=== PATIENT | female | born 1930 | race Caucasian/White ===

== ENCOUNTER 2017-01-24 10:28 | Inpatient (IN) | payer MEDICARE, MEDICAID ==
[2017-01-24] VITALS (8 sets, daily range): BP systolic 94–123; BP diastolic 58–85
[~2017-01-24] VITALS: Ht 162.6 cm; Wt 72.6 kg
[~2017-01-24 10:28] MED LIST: ACETAMINOPHEN325 M1 ORAL; ATORVASTATIN CA40 MG ORAL; CALCIUM 600 +1 EAC2 PO; CLOPIDOGREL75 MG ORAL; COLACE100 MG ORAL; DUONEB 0.5-3(2.53 ML HHN; FUROSEMIDE40 MG ORAL; LISINOPRIL10 MG ORAL; MULTIVITAMINS1 EAC8 ORAL; MYRBETRIQ50 MG PO; NORCO 5-325 TA1 EAC1 ORAL; NORCO 5-325 TA1 EACH ORAL; OXYTROL1 EACH TD; POTASSIUM CHLO20 ME1 ORAL; PREDNISONE50 MG ORAL; PROTONIX40 MG ORAL; VITAMIN D1000 UNI1 ORAL
[2017-01-24] MEDS ORDERED: TRAMADOL HCL50 MG ORAL (10:46)
[2017-01-24] MEDS ORDERED: Ipratropium 0.02% Inh Soln 2.5ml UD HHN ONE (11:00)
[2017-01-24] MEDS ORDERED: Albuterol ud Inhalation HHN ONE (11:00)
[2017-01-24] MEDS ORDERED: Solu-MEDROL 125mg Inj IVP ONE (11:00)
[2017-01-24 11:18] LABS: MEAN CORPUSCULAR HGB CONC 32.3 G/DL (32.0-36.0); MEAN CORPUSCULAR VOLUME 90 FL (80-99); MEAN PLATELET VOLUME 5.7 FL (6.5-10.1); PLATELET COUNT 236 K/UL (150-450); RED BLOOD COUNT 4.35 M/UL (4.20-5.40); RED CELL DISTRIBUTION WIDTH 15.2 % (11.6-14.8)
[2017-01-24 11:34] LABS: ALANINE AMINOTRANSFERASE 12 U/L (3-33); ALBUMIN/GLOBULIN RATIO 1.3 (1.0-2.7); ANION GAP 14 (5-15); ASPARTATE AMINO TRANSFERASE 14 U/L (5-40); CALCIUM 9.1 mg/dL (8.6-10.2); CARBON DIOXIDE 29 mEQ/L (20-30); CHLORIDE 94 mEQ/L (98-107); CREATININE 0.7 mg/dL (0.5-0.9); HEMOLYSIS 8; POTASSIUM 4.1 mEQ/L (3.4-4.9); SODIUM 137 mEQ/L (135-145); TOTAL PROTEIN 6.5 g/dL (6.6-8.7); TROPONIN I < 0.30 ng/mL (<=0.30)
[2017-01-24 11:45] LABS: CKMB 2.4 ng/mL (< 3.8)
[2017-01-24 11:51] LABS: BAND NEUTROPHILS % (MANUAL) 7 % (0-8); BASOPHILS % (MANUAL) 0 % (0-2); EOSINOPHILS % (MANUAL) 0 % (0-3); LYMPHOCYTES % (MANUAL) 9 % (20-45); NEUTROPHILS % (MANUAL) 75 % (45-75); PLATELET ESTIMATE ADEQUATE; PLATELET MORPHOLOGY NORMAL; TOTAL CELLS COUNTED 100
[2017-01-24 12:12] LABS: ABG BASE EXCESS 4.3; ABG PCO2 63.6 mmHg (35.0-45.0)
[2017-01-24 12:13] LABS: ABG ALLEN TEST POSITIVE
[2017-01-24] MEDS ORDERED: Morphine Sulfate 2mg/ml Inj IVP ONE (12:15)
[2017-01-24] MEDS ORDERED: Cefepime 1gm vial ONE (12:24)
[2017-01-24] MEDS ORDERED: Azithromycin Inj IV ONE (12:24)
[2017-01-24] MEDS ORDERED: Azithromycin 500 MG in NS 275 ML IV ONE (12:30)
[2017-01-24] MEDS ORDERED: Cefepime HCl 1 GM in NS 55 ML IV ONE (12:30)
--- NOTE | 2017-01-24 12:50 | Emergency Room Report ---
History of Present Illness General Chief Complaint: Dyspnea/Respdistress Source: Medical Record Present Illness HPI 87-year-old female presents to ED for evaluation of shortness of breath daughter is at bedside states that patient has had a cough for the last one week and notes increased shortness of breath. O2 sats in the 70s at [facility] on room air. Patient placed on oxygen. Patient has history of COPD. Patient is DO NOT RESUSCITATE. Daughter denies any fevers or chills. Denies any chest pain. No other aggravating or relieving factors. Denies any other associated symptoms Allergies: Coded Allergies: No Known Allergies (Unverified , 02/17/16) Patient History Past Medical History: HTN, CVA/TIA Past Surgical History: none, other - surgery Pertinent Family History: none Social History: Denies: alcohol use, drug use, smoking Now: No Immunizations: UTD Reviewed Nursing Documentation: PMH: Agreed, PSxH: Agreed Nursing Documentation-PMH Past Medical History: No History, Except For Hx Hypertension: Yes Hx Cancer: No Hx Gastrointestinal Problems: Yes - bowel repair Hx Cerebrovascular Accident: Yes Review of Systems All Other Systems: negative except mentioned in HPI Physical Exam Vital Signs Date Time Temp Pulse Resp B/P Pulse Ox O2 Delivery O2 Flow Rate FiO2 01/24/17 10:31 97.7 116 22 94/58 86 Simple Mask 10.0 01/24/17 10:42 100 Sp02 EP Interpretation: reviewed, normal General Appearance: mild distress, lethargic Head: normocephalic Eyes: bilateral eye PERRL, bilateral eye normal inspection ENT: normal ENT inspection Neck: full range of motion Respiratory: accessory muscle use, wheezing Cardiovascular #1: regular rate, rhythm, no edema Gastrointestinal: normal bowel sounds, non tender, soft, non-distended, no guarding, no rebound Rectal: deferred Genitourinary: no CVA tenderness Musculoskeletal: normal inspection Neurologic: other - lethargic Psychiatric: other - lethargic Skin: normal inspection Lymphatic: normal inspection Procedures Critical Care Time Critical Care Time i. I feel this is a highly complex case requiring extensive working including EKG/Rhythm strip, Xray/CT/US, Blood/urine lab work, repeat exams while in ED, and administration of strong opiates/narcotics for pain control, admission to hospital or close patient follow up. Total time: 30 min bedside evaluation and treatment excludes procedures (EKG). Reason for critical care: hypoxic, resp distress Possible complications: hypotension, hypertension, ND, shock, arrhythmias, metabolic acidosis, end organ damage, respiratory failure. Interventions: Labs, IV fluids, nebulization treatment, chest x-ray, ABG, BiPAP , antibiotics Course: Patient brought in for respiratory distress, hypoxic. ABG shows PCO2 > 60. She of COPD. Patient given breathing treatment but remains with labored breathing. Started on BiPAP. WBC 19,000, chest x-ray shows possible infiltrate. Antibiotics given. Consultations: nursing staff, EMS, family Performed by: Dr Barron Tolerated well condition = serious j. because of unstable vital signs this patient had a condition that could potentially threaten life or limb. I feel this is a critical patient who required my full attention while patient was considered critical. Total Critical Care Time excluding procedures was greater than 35 minutes Medical Decision Making Diagnostic Impression: Primary Impression: COPD exacerbation ER Course Hospital Course 87-year-old F presenting to ED with SOB, hypoxic. h/o COPD Differential diagnoses include: Pneumonia, CHF exacerbation, pneumothorax, fluid overload Clinical course Patient placed on stretcher. On monitoring specialist with stable vitals. After initial history and physical, I ordered nebulizer treatments. I ordered labs, IV fluids, EKG, chest x-ray, blood cultures, UA. Labs - noted leukocytosis, hemoglobin/hematocrit stable, electrolytes okay, lactate okay, troponins negative ABG PCO2 >60 CXR - cardiomegaly. effusion vs infiltrate EKG - no acute changes, NSR Patient continued to have labored breathing-started on BiPAP. Respiratory symptoms improved. Antibiotics given Case discussed with Dr. Saucedo and he agreed to the patient to his service for further care and support I feel this is a highly complex case requiring extensive working including EKG/ Rhythm strip, Xray/CT/US, Blood/urine lab work, repeat exams while in ED, and administration of strong opiates/narcotics for pain control, admission to hospital or close patient follow up. Diagnosis - COPD exacerbation Patient admitted to PAT in serious condition Labs Test 01/24/17 10:45 01/24/17 11:53 White Blood Count 19.0 K/UL (4.8-10.8) Red Blood Count 4.35 M/UL (4.20-5.40) Hemoglobin 12.6 G/DL (12.0-16.0) Hematocrit 39.1 % (37.0-47.0) Mean Corpuscular Volume 90 FL (80-99) Mean Corpuscular Hemoglobin 29.0 PG (27.0-31.0) Mean Corpuscular Hemoglobin Concent 32.3 G/DL (32.0-36.0) Red Cell Distribution Width 15.2 % (11.6-14.8) Platelet Count 236 K/UL (150-450) Mean Platelet Volume 5.7 FL (6.5-10.1) Neutrophils (%) (Auto) % (45.0-75.0) Lymphocytes (%) (Auto) % (20.0-45.0) Monocytes (%) (Auto) % (1.0-10.0) Eosinophils (%) (Auto) % (0.0-3.0) Basophils (%) (Auto) % (0.0-2.0) Differential Total Cells Counted 100 Neutrophils % (Manual) 75 % (45-75) Lymphocytes % (Manual) 9 % (20-45) Monocytes % (Manual) 9 % (1-10) Eosinophils % (Manual) 0 % (0-3) Basophils % (Manual) 0 % (0-2) Band Neutrophils 7 % (0-8) Platelet Estimate Adequate Platelet Morphology Normal Red Blood Cell Morphology Normal Sodium Level 137 mEQ/L (135-145) Potassium Level 4.1 mEQ/L (3.4-4.9) Chloride Level 94 mEQ/L (98-107) Carbon Dioxide Level 29 mEQ/L (20-30) Anion Gap 14 (5-15) Blood Urea Nitrogen 15 mg/dL (7-23) Creatinine 0.7 mg/dL (0.5-0.9) Estimat Glomerular Filtration Rate mL/min (>60) Glucose Level 181 mg/dL (74-106) Lactic Acid Level 1.30 mmol/L (0.66-2.22) Calcium Level 9.1 mg/dL (8.6-10.2) Total Bilirubin 0.6 mg/dL (0.0-1.2) Aspartate Amino Transf (AST/SGOT) 14 U/L (5-40) Alanine Aminotransferase (ALT/SGPT) 12 U/L (3-33) Alkaline Phosphatase 79 U/L (35-104) Total Creatine Kinase 46 U/L (26-140) Creatine Kinase MB 2.4 ng/mL (< 3.8) Creatine Kinase MB Relative Index 5.2 Troponin I < 0.30 ng/mL (<=0.30) Pro-B-Type Natriuretic Peptide 649 pg/mL (0-450) Total Protein 6.5 g/dL (6.6-8.7) Albumin 3.7 g/dL (3.5-5.2) Globulin 2.8 g/dL Albumin/Globulin Ratio 1.3 (1.0-2.7) Arterial Blood pH 7.320 (7.350-7.450) Arterial Blood Partial Pressure CO2 63.6 mmHg (35.0-45.0) Arterial Blood Partial Pressure O2 112.9 mmHg (75.0-100.0) Arterial Blood HCO3 32.1 mmol/L (22.0-26.0) Arterial Blood Oxygen Saturation 97.4 % (92.0-98.0) Arterial Blood Base Excess 4.3 Alec Test Positive EKG Diagnostic Results Rate: normal Rhythm: NSR ST Segments: no acute changes ASA given to the pt in ED: No Rhythm Strip Diag. Results EP Interpretation: yes Rhythm: NSR, no PVC's, no ectopy Chest X-Ray Diagnostic Results EP Interpretation: Yes Findings: no pneumothorax, no acute cardiopulmonary disease, other - cardiomegaly. b/l effusion. ? infiltrate Number of Views: 1 Last Vital Signs Date Time Temp Pulse Resp B/P Pulse Ox O2 Delivery O2 Flow Rate FiO2 01/24/17 12:08 40 01/24/17 12:05 115 20 90 Facial 01/24/17 11:47 123/60 2.0 01/24/17 11:04 97.7 Status: improved Disposition: ADMITTED INPATIENT Condition: Serious Referrals: NON PHYSICIAN (PCP) HARVEY BARRON M.D. Jan 24, 2017 12:50
--- NOTE | 2017-01-24 15:31 | Diagnostic Imaging Report ---
Indication: SOB Technique: One view of the chest Comparison: 10/08/2016 Findings: Bilateral mild diffuse interstitial disease appears similar to the prior study. There is suggestion of retrocardiac consolidation, this could be an artifact of overlying soft tissue opacity. The heart is enlarged. There is thoracic scoliotic deformity. There are degenerative changes of the right shoulder Impression: Bilateral diffuse mild interstitial disease, appearing similar to the previous exam of September 2016. This may represent chronic interstitial fibrotic or senescent changes, but there could also be a component of acute interstitial congestion. Correlate with clinical findings. Cardiomegaly
[2017-01-24] MEDS ORDERED: Norco 5mg/325mg tab ORAL PRN (16:45)
[2017-01-24] MEDS ORDERED: DuoNeb 0.5-3(2.5)mg/3ml neb HHN PRN (16:45)
--- NOTE | 2017-01-24 16:55 | History & Physical ---
History and Physical History & Physicial # [id number] PAWAN AZAR Jan 24, 2017 16:55
--- NOTE | 2017-01-24 17:00 | Consultation ---
History of Present Illness General Date patient seen: Jan 24, 2017 Chief Complaint: Dyspnea/Respdistress Referring physician: Dr. gallegos Reason for Consultation: dyspnea Present Illness HPI 87-year-old female with pmhx of COPD, CAD, CVA presented to ED for evaluation of shortness of breath daughter, cough for the last one week. [facility] sats [facility] 70s at [facility] on [facility]. . Patient is DO NOT RESUSCITATE. Daughter denies any fevers or chills. Patient was in respiratory failure and was put on BIPAP and being transferred to PAT. Allergies: Coded Allergies: No Known Allergies (Unverified , 02/17/16) Medication History Scheduled Atorvastatin Calcium* (Atorvastatin Calcium*), 40 MG ORAL BEDTIME, (Reported) Calcium Carbonate/Vitamin D3 (Calcium 600 + Vit D 200 Tablet), 1 EACH PO DAILY, (Reported) Cholecalciferol (Vitamin D3)* (Vitamin D*), 1,000 UNIT ORAL DAILY, (Reported) Clopidogrel* (Clopidogrel*), 75 MG ORAL DAILY, (Reported) Docusate Sodium* (Colace*), 100 MG ORAL THREE TIMES A DAY Furosemide* (Lasix*), 40 MG ORAL DAILY, (Reported) Lisinopril* (Lisinopril*), 10 MG ORAL DAILY, (Reported) Mirabegron (Myrbetriq), 50 MG PO DAILY, (Reported) Multivitamin With Minerals (Multivitamins With Minerals*), 1 TAB ORAL DAILY, ( Reported) Oxybutynin (Oxytrol), 1 EACH TD DAILY, (Reported) Pantoprazole* (Protonix*), 40 MG ORAL EVERY 12 HOURS Potassium Chloride* (K-Dur*), 20 MEQ ORAL DAILY, (Reported) Prednisone* (Prednisone*), 25 MG ORAL DAILY Scheduled PRN Acetaminophen* (Acetaminophen*), 650 MG ORAL Q4H PRN for T>100.5 Hydrocodone Bit/Acetaminophen 5-325* ([place] 5-325 Tablet*), 1 TAB ORAL Q8HR PRN for For Pain, (Reported) Ipratropium/Albuterol Sulfate (DuoNeb 0.5-3(2.5)mg/3ml), 3 ML HHN EVERY 4 HOURS PRN Tramadol Hcl* (Ultram*), 50 MG ORAL Q6H PRN for For Pain, (Reported) Patient History Healthcare decision maker N Resuscitation status Advanced Directive on File Past Medical/Surgical History Past Medical/Surgical History: (1) COPD (chronic obstructive pulmonary disease) (2) HTN (hypertension) (3) CAD (coronary artery disease) (4) Anemia Review of Systems All Other Systems: negative except mentioned in HPI Physical Exam General Appearance: WD/WN Lines, tubes and drains: peripheral, central line HEENT: normocephalic, atraumatic Neck: non-tender, normal alignment Respiratory/Chest: chest wall non-tender, lungs clear Cardiovascular/Chest: normal peripheral pulses Abdomen: normal bowel sounds, non tender Genitourinary/Rectal: normal genital exam Last 24 Hour Vital Signs Date Time Temp Pulse Resp B/P Pulse Ox O2 Delivery O2 Flow Rate FiO2 01/24/17 16:55 96 21 91 Facial 45 01/24/17 16:40 97.7 96 19 123/82 91 Bi-pap 45 01/24/17 15:41 97.7 94 17 113/85 94 Bi-pap 2.0 40 01/24/17 15:30 94 17 113/85 94 Bi-pap 40 01/24/17 14:36 104 20 88 Facial 45 01/24/17 14:30 102 18 115/76 87 Bi-pap 40 01/24/17 13:30 97.7 01/24/17 13:28 104 17 100/66 88 Bi-pap 40 01/24/17 13:10 100 18 88 Facial 40 01/24/17 12:30 108 19 111/74 89 Nasal Cannula 2.0 01/24/17 12:30 40 01/24/17 12:08 40 01/24/17 12:05 115 20 90 Facial 35 01/24/17 11:47 128 22 123/60 87 Nasal Cannula 2.0 01/24/17 11:22 122 22 90 Nasal Cannula 3.0 01/24/17 11:04 97.7 110 19 94/58 88 Non-Rebreather 15.0 01/24/17 11:04 110 19 15.0 01/24/17 10:52 110 19 88 Non-Rebreather 15.0 100 01/24/17 10:42 110 19 Non-Rebreather 15.0 100 01/24/17 10:31 97.7 116 22 94/58 86 Simple Mask 10.0 Laboratory Tests Test 01/24/17 10:45 01/24/17 11:53 White Blood Count 19.0 K/UL (4.8-10.8) H Red Blood Count 4.35 M/UL (4.20-5.40) Hemoglobin 12.6 G/DL (12.0-16.0) Hematocrit 39.1 % (37.0-47.0) Mean Corpuscular Volume 90 FL (80-99) Mean Corpuscular Hemoglobin 29.0 PG (27.0-31.0) Mean Corpuscular Hemoglobin Concent 32.3 G/DL (32.0-36.0) Red Cell Distribution Width 15.2 % (11.6-14.8) H Platelet Count 236 K/UL (150-450) Mean Platelet Volume 5.7 FL (6.5-10.1) L Neutrophils (%) (Auto) % (45.0-75.0) Lymphocytes (%) (Auto) % (20.0-45.0) Monocytes (%) (Auto) % (1.0-10.0) Eosinophils (%) (Auto) % (0.0-3.0) Basophils (%) (Auto) % (0.0-2.0) Differential Total Cells Counted 100 Neutrophils % (Manual) 75 % (45-75) Lymphocytes % (Manual) 9 % (20-45) L Monocytes % (Manual) 9 % (1-10) Eosinophils % (Manual) 0 % (0-3) Basophils % (Manual) 0 % (0-2) Band Neutrophils 7 % (0-8) Platelet Estimate Adequate Platelet Morphology Normal Red Blood Cell Morphology Normal Sodium Level 137 mEQ/L (135-145) Potassium Level 4.1 mEQ/L (3.4-4.9) Chloride Level 94 mEQ/L (98-107) L Carbon Dioxide Level 29 mEQ/L (20-30) Anion Gap 14 (5-15) Blood Urea Nitrogen 15 mg/dL (7-23) Creatinine 0.7 mg/dL (0.5-0.9) Estimat Glomerular Filtration Rate mL/min (>60) Glucose Level 181 mg/dL (74-106) H Lactic Acid Level 1.30 mmol/L (0.66-2.22) Calcium Level 9.1 mg/dL (8.6-10.2) Total Bilirubin 0.6 mg/dL (0.0-1.2) Aspartate Amino Transf (AST/SGOT) 14 U/L (5-40) Alanine Aminotransferase (ALT/SGPT) 12 U/L (3-33) Alkaline Phosphatase 79 U/L (35-104) Total Creatine Kinase 46 U/L (26-140) Creatine Kinase MB 2.4 ng/mL (< 3.8) Creatine Kinase MB Relative Index 5.2 Troponin I < 0.30 ng/mL (<=0.30) Pro-B-Type Natriuretic Peptide 649 pg/mL (0-450) H Total Protein 6.5 g/dL (6.6-8.7) L Albumin 3.7 g/dL (3.5-5.2) Globulin 2.8 g/dL Albumin/Globulin Ratio 1.3 (1.0-2.7) Arterial Blood pH 7.320 (7.350-7.450) Arterial Blood Partial Pressure CO2 63.6 mmHg (35.0-45.0) *H Arterial Blood Partial Pressure O2 112.9 mmHg (75.0-100.0) H Arterial Blood HCO3 32.1 mmol/L (22.0-26.0) H Arterial Blood Oxygen Saturation 97.4 % (92.0-98.0) Arterial Blood Base Excess 4.3 Alec Test Positive Height (Feet): 5 Height (Inches): 4.00 Weight (Pounds): 160 Medications Current Medications Medications (Trade) Dose Ordered Sig/Meera Route PRN Reason Start Time Stop Time Status Last Admin Dose Admin Acetaminophen (Tylenol) 650 mg Q4H PRN ORAL T>100.5 01/24/17 17:00 02/23/17 16:59 Acetaminophen/ Hydrocodone Bitart ([place] 5/325) 1 tab Q4H PRN ORAL PAIN 4-10 01/24/17 17:00 01/31/17 16:59 Albuterol/ Ipratropium (DuoNeb 0.5-3(2.5)mg/3ml) 3 ml Q4H PRN HHN Shortness of Breath 01/24/17 16:45 01/29/17 16:44 Atorvastatin Calcium (Lipitor) 40 mg BEDTIME ORAL 01/24/17 21:00 02/23/17 20:59 Ceftriaxone Sodium/Dextrose (Rocephin/D5W) 55 ml @ 110 mls/hr Q24H IVPB 01/24/17 18:00 01/31/17 17:59 Clopidogrel Bisulfate (Plavix) 75 mg DAILY ORAL 01/25/17 09:00 02/24/17 08:59 Docusate Sodium (Colace) 100 mg TID ORAL 01/24/17 18:00 02/23/17 17:59 Furosemide (Lasix) 40 mg DAILY IV 01/25/17 09:00 02/24/17 08:59 Lisinopril (Zestril) 10 mg DAILY ORAL 01/25/17 09:00 02/24/17 08:59 Methylprednisolone Sodium Succinate (Solu-MEDROL) 60 mg EVERY 8 HOURS IVP 01/24/17 22:00 02/23/17 21:59 Ondansetron HCl 4 mg 4 mg Q6H PRN IV Nausea & Vomiting 01/24/17 16:45 02/23/17 16:44 Pantoprazole (Protonix) 40 mg EVERY 12 HOURS ORAL 01/24/17 21:00 02/23/17 20:59 Polyethylene Glycol (Miralax) 17 gm BEDTIME ORAL 01/24/17 21:00 02/23/17 20:59 Assessment/Plan Problem List: (1) Respiratory failure ICD Codes: J96.90 - Respiratory failure, unspecified, unspecified whether with hypoxia or hypercapnia SNOMED: 639903583 (2) COPD exacerbation ICD Codes: J44.1 - Chronic obstructive pulmonary disease with (acute) exacerbation SNOMED: 022196891, 419973668 (3) Pneumonia ICD Codes: J18.9 - Pneumonia, unspecified organism SNOMED: 997854304 (4) HTN (hypertension) ICD Codes: I10 - Essential (primary) hypertension SNOMED: 94024176 (5) CAD (coronary artery disease) ICD Codes: I25.10 - Atherosclerotic heart disease of [place] coronary artery without angina pectoris SNOMED: 07206990 (6) Anemia ICD Codes: D64.9 - Anemia, unspecified SNOMED: 037127055 Assessment/Plan titrate bipap respiratory treatment IV antibiotics chest pt cxr in am sputum induction SUSIE ROCHA Jan 24, 2017 17:00
[2017-01-24] MEDS ORDERED: Docusate 250mg cap ORAL SCH (18:00)
[2017-01-24] MEDS: Docusate 100mg tablet ORAL SCH (19:27)
[2017-01-24] MEDS: cefTRIAXone 1 GM in D5W 55 ML IVPB SCH (19:27)
[2017-01-24] MEDS: Miralax 17gm pkt ORAL SCH (20:57)
[2017-01-24] MEDS: Norco 5mg/325mg tab ORAL PRN (20:57)
[2017-01-24] MEDS: Solu-MEDROL 125mg Inj IVP SCH (21:05)
--- NOTE | 2017-01-24 21:28 | History and Physical Report ---
DATE OF ADMISSION: 01/24/2017 HISTORY OF PRESENT ILLNESS: The patient is known to me from her previous 2 admissions. She was last discharged on 10/08/2016. She is 87 years old. She presented with shortness of breath with the daughter at her bedside. The patient had cough and shortness of breath for a week that the daughter attributes it to the refurnishing the floor of where she is staying and the patient has history of COPD. The patient is DNR. Past history of the patient is significant for few surgeries including hysterectomy, spinal fusion, bowel repair, and cholecystectomy, a hernia and gallbladder surgery, aneurysm of the abdomen, fracture of the hip and pelvis. PAST MEDICAL HISTORY: Past history of medical conditions include diverticulosis, chronic arthritis, and history of pneumonia, previous respiratory failure, gastrointestinal bleed, dehydration, and hypotension. MEDICATIONS: The patient was supposed to be on includes Tylenol, Finley, breathing treatment, Plavix, stool softeners, Lasix, lisinopril, Protonix, MiraLAX, and the patient was on tapering dose of prednisone when discharged in September. The patient also takes Restoril at night. On this admission, the patient was admitted with diagnosis of COPD exacerbation, however the patient has leukocytosis of 19,000. PHYSICAL EXAMINATION: GENERAL: On examination, the patient is comfortable on BiPAP. VITAL SIGNS: When seen in the emergency room, temperature 97.7. The patient was calm and had some sedatives. The patient is on BiPAP. Pulse rate 94, blood pressure 113/85, respiratory rate 17, but earlier it was as high as 26, FiO2 of 40%. The pulse oximetry was 94%. The daughter mentioned that her pulse oximetry prior to BiPAP was about 86. HEENT: Head is normocephalic. NECK: Neck is full. LUNGS: Decreased breath sound over the bases. HEART: Tachycardic. Mainly regular with occasional irregular beats. ABDOMEN: Obese, three different hernias and scars of the previous surgery present. EXTREMITIES: Lower extremities, two surgical scars over the knee present and the patient has trace edema. LABORATORY RESULTS: White blood cells 19,000, hemoglobin 12.6, potassium 4.1, glucose 181, peptic acid is 649. The urinalysis is not done. The chest x-ray reported to have cardiomegaly and effusion versus infiltrate. EKG no acute changes. Normal sinus rhythm. IMPRESSION: Hypoxic respiratory failure, most likely secondary to chronic obstructive pulmonary disease. The patient may have at the same time worsening congestive heart failure. Also, other conditions include chronic arthritis, multiple abdominal surgeries, and also as mentioned earlier previous history of the gastrointestinal bleed, and previous history of respiratory failure, requiring mechanical intubation. At this point, the patient will be managed on BiPAP by Dr. Miller and empirically, we will start on ceftriaxone as the patient was taking it in previous admissions while the urine cultures are pending. Protonix, intravenous Solu-Medrol, lisinopril, breathing treatment, pain medication, intravenous Lasix, stool softeners, and Plavix will be given. A 2D echocardiogram will be ordered and according to how the patient's condition evolves, we make the appropriate changes in our future management. Paresh Snow M.D. DR: KAYKAY JOB#: [id number] CC:
[2017-01-24 23:47] LABS: APPEARANCE,URINE CLEAR; KETONES,URINE NEGATIVE (NEGATIVE); LEUKOCYTE ESTERASE ,URINE 1+ (NEGATIVE); NITRITE,URINE POSITIVE (NEGATIVE); PH,URINE 6.5 (4.5-8.0); PROTEIN,URINE 2+ (NEGATIVE); UROBILINOGEN,URINE NORMAL MG/DL (0.0-1.0)
[2017-01-25 00:17] LABS: BACTERIA,URINE MODERATE /HPF; RBC,URINE 40-60 /HPF (0 - 2); SQUAMOUS EPITHELIAL CELL,UR FEW /LPF (NONE/OCC)
[2017-01-25] MEDS: Norco 5mg/325mg tab ORAL PRN ×5 (01:58→20:10)
[2017-01-25 04:00] VITALS: BP 120/85
[2017-01-25 05:11] LABS: MEAN CORPUSCULAR HEMOGLOBIN 28.9 PG (27.0-31.0); MEAN CORPUSCULAR HGB CONC 32.4 G/DL (32.0-36.0); MEAN CORPUSCULAR VOLUME 89 FL (80-99); PLATELET COUNT 206 K/UL (150-450); RED BLOOD COUNT 4.16 M/UL (4.20-5.40)
[2017-01-25] MEDS: Solu-MEDROL 125mg Inj IVP SCH (05:18)
[2017-01-25 05:32] LABS: HEMOGLOBIN A1C 5.9 % (< 6.0)
[2017-01-25 05:43] LABS: THYROID STIMULATING HORMONE 0.912 uIU/mL (0.300-4.500)
[2017-01-25 05:44] LABS: ALANINE AMINOTRANSFERASE 12 U/L (3-33); ALBUMIN/GLOBULIN RATIO 1.1 (1.0-2.7); ANION GAP 15 (5-15); ASPARTATE AMINO TRANSFERASE 12 U/L (5-40); CALCIUM 8.9 mg/dL (8.6-10.2); CARBON DIOXIDE 27 mEQ/L (20-30); CHLORIDE 96 mEQ/L (98-107); CHOLESTEROL 122 mg/dL (< 200); CHOLESTEROL/HDL RATIO 2.2 (3.3-4.4); CREATININE 0.7 mg/dL (0.5-0.9); CRP QUANT 14.2 mg/dL (< 0.5); HEMOLYSIS 4; LDL CHOLESTEROL (CALC.) 48 mg/dL (60-99); MAGNESIUM 1.6 mg/dL (1.7-2.5); PHOSPHORUS 3.4 mg/dL (2.5-4.8); POTASSIUM 4.3 mEQ/L (3.4-4.9); SODIUM 138 mEQ/L (135-145); TOTAL PROTEIN 6.2 g/dL (6.6-8.7); URIC ACID 8.5 mg/dL (3.0-7.5)
[2017-01-25] MEDS: Lisinopril 10mg tab ORAL SCH (08:37)
[2017-01-25] MEDS: Docusate 100mg tablet ORAL SCH ×3 (08:38→18:02)
[2017-01-25] MEDS ORDERED: Furosemide 40mg tab ORAL SCH (09:00)
[2017-01-25] MEDS ORDERED: Tubing IV Secondary IV ONE (09:51)
[2017-01-25 10:03] VITALS: BP 125/97
[2017-01-25 11:29] LABS: BAND NEUTROPHILS % (MANUAL) 2 % (0-8); LYMPHOCYTES % (MANUAL) 8 % (20-45); NEUTROPHILS % (MANUAL) 84 % (45-75); TOTAL CELLS COUNTED 100
[2017-01-25 11:30] LABS: ANISOCYTOSIS 1+
[2017-01-25 11:31] LABS: BASOPHILS % (MANUAL) 0 % (0-2); EOSINOPHILS % (MANUAL) 0 % (0-3); PLATELET ESTIMATE ADEQUATE; PLATELET MORPHOLOGY NORMAL
--- NOTE | 2017-01-25 11:58 | Diagnostic Imaging Report ---
Indication: DYSPNEA Technique: One view of the chest Comparison: 01/24/2017 Findings: There is increasing infiltrate at the right lung base. Left hemidiaphragm remains obscured. The heart is enlarged. Impression: Increasing right basilar infiltrate Persistent retrocardiac pleural and/or parenchymal disease Stable cardiomegaly
[2017-01-25 12:00] VITALS: BP 129/81
--- NOTE | 2017-01-25 12:10 | General Progress Note ---
Assessment/Plan Status: other - improved clinically Assessment/Plan Status: Hypoxic respiratory failure, most likely secondary to chronic obstructive pulmonary disease. The patient may have at the same time worsening congestive heart failure. Also, other conditions include chronic arthritis, multiple abdominal surgeries, and also as mentioned earlier previous history of the gastrointestinal bleed, and previous history of respiratory failure, requiring mechanical intubation. ? UTI Plan: Patient started with BIPAP, now seems improved empirically, on ceftriaxone as the patient was taking it in previous admissions while the urine cultures are pending. Protonix, intravenous Solu-Medrol ( with tapering aim) , lisinopril, breathing treatment, pain medication, intravenous Lasix, stool softeners, and Plavix will be given. A 2D echocardiogram is ordered Mag supplement Subjective ROS Limited/Unobtainable: No Constitutional: Reports: malaise, other - less SOB, weakness Allergies: Coded Allergies: No Known Allergies (Unverified , 02/17/16) Objective Last 24 Hour Vital Signs Date Time Temp Pulse Resp B/P Pulse Ox O2 Delivery O2 Flow Rate FiO2 01/25/17 11:26 3.0 01/25/17 10:03 98 18 125/97 94 01/25/17 08:42 3.0 01/25/17 08:37 131/85 01/25/17 08:00 40 01/25/17 08:00 80 01/25/17 07:17 97.7 01/25/17 07:03 93 20 97 3.0 01/25/17 05:24 81 19 97 Facial 45 01/25/17 04:00 40 01/25/17 04:00 88 01/25/17 04:00 97.7 95 24 120/85 88 Nasal Cannula 5.0 01/25/17 03:30 82 19 97 Facial 45 01/25/17 01:00 82 18 96 Facial 45 01/25/17 00:00 40 01/25/17 00:00 83 01/24/17 23:00 97 19 96 Facial 45 01/24/17 21:00 91 18 93 Facial 45 01/24/17 20:00 97.2 92 18 112/76 93 Bi-pap 45 01/24/17 19:16 92 19 93 Facial 45 01/24/17 18:00 40 01/24/17 16:55 96 21 91 Facial 45 01/24/17 16:40 97.7 96 19 123/82 91 Bi-pap 45 01/24/17 16:31 103 01/24/17 15:41 97.7 94 17 113/85 94 Bi-pap 2.0 40 01/24/17 15:30 94 17 113/85 94 Bi-pap 40 01/24/17 14:36 104 20 88 Facial 45 01/24/17 14:30 102 18 115/76 87 Bi-pap 40 01/24/17 13:30 97.7 01/24/17 13:28 104 17 100/66 88 Bi-pap 40 01/24/17 13:10 100 18 88 Facial 40 01/24/17 12:30 108 19 111/74 89 Nasal Cannula 2.0 01/24/17 12:30 40 01/24/17 12:08 40 01/24/17 12:05 115 20 90 Facial 35 Intake and Output 01/24/17 01/25/17 19:00 07:00 Intake Total 1530 ml 105 ml Output Total 200 ml Balance 1530 ml -95 ml Intake Oral 200 ml 50 ml IV Total 1330 ml 55 ml Output Urine Total 200 ml # Voids 1 3 Laboratory Tests 01/24/17 22:00: Urine Color Pale yellow, Urine Appearance Clear, Urine pH 6.5, Urine Specific [place] 1.015, Urine Protein 2+H, Urine Glucose (UA) Negative, Urine Ketones Negative, Urine Occult Blood 5+H, Urine Nitrite PositiveH, Urine Bilirubin Negative, Urine Urobilinogen Normal, Urine Leukocyte Esterase 1+H, Urine RBC 40- 60H, Urine WBC 5-10H, Urine Squamous Epithelial Cells Few, Urine Bacteria ModerateH, Urine Hyaline Casts 2-4H 01/25/17 03:25: White Blood Count 16.0H, Red Blood Count 4.16L, Hemoglobin 12.0, Hematocrit 37.1 , Mean Corpuscular Volume 89, Mean Corpuscular Hemoglobin 28.9, Mean Corpuscular Hemoglobin Concent 32.4, Red Cell Distribution Width 15.0H, Platelet Count 206, Mean Platelet Volume 6.0L, Neutrophils (%) (Auto) , Lymphocytes (%) (Auto) , Monocytes (%) (Auto) , Eosinophils (%) (Auto) , Basophils (%) (Auto) , Differential Total Cells Counted 100, Neutrophils % ( Manual) 84H, Lymphocytes % (Manual) 8L, Monocytes % (Manual) 6, Eosinophils % ( Manual) 0, Basophils % (Manual) 0, Band Neutrophils 2, Platelet Estimate Adequate, Platelet Morphology Normal, Anisocytosis 1+, Sodium Level 138, Potassium Level 4.3, Chloride Level 96L, Carbon Dioxide Level 27, Anion Gap 15, Blood Urea Nitrogen 19, Creatinine 0.7, Estimat Glomerular Filtration Rate , Glucose Level 179H, Hemoglobin A1c 5.9, Uric Acid 8.5H, Calcium Level 8.9, Phosphorus Level 3.4, Magnesium Level 1.6L, Total Bilirubin 0.3, Gamma Glutamyl Transpeptidase 22, Aspartate Amino Transf (AST/SGOT) 12, Alanine Aminotransferase (ALT/SGPT) 12, Alkaline Phosphatase 91, Total Creatine Kinase 25L, C-Reactive Protein, Quantitative 14.2H, Pro-B-Type Natriuretic Peptide 1043H, Total Protein 6.2L, Albumin 3.3L, Globulin 2.9, Albumin/Globulin Ratio 1.1, Triglycerides Level 89, Cholesterol Level 122, LDL Cholesterol 48L, HDL Cholesterol 56, Cholesterol/HDL Ratio 2.2L, Thyroid Stimulating Hormone (TSH) 0.912 Height (Feet): 5 Height (Inches): 4.00 Weight (Pounds): 160 General Appearance: mild distress Neck: limited range of motion Cardiovascular: tachycardia Respiratory/Chest: decreased breath sounds Abdomen: soft, distended, other - hernia Edema: no edema noted Arm (L), no edema noted Arm (R), no edema noted Leg (L), no edema noted Leg (R), no edema noted Pedal (L), no edema noted Pedal (R), no edema noted Generalized Objective other physical exam not changed PAWAN AZAR Jan 25, 2017 12:10
[2017-01-25] MEDS ORDERED: Solu-MEDROL 40mg Inj IVP SCH (14:00)
--- NOTE | 2017-01-25 14:17 | Pulmonology Progress Note ---
Assessment/Plan Problems: (1) Respiratory failure (2) COPD exacerbation (3) Pneumonia (4) HTN (hypertension) (5) CAD (coronary artery disease) (6) Anemia Assessment/Plan off bipap sputum induction taper steroids fast continue antibiotics doing much better cxr in am. Subjective ROS Limited/Unobtainable: No Interval Events: off bipap, tolerating well Constitutional: Reports: no symptoms HEENT: Repors: no symptoms Respiratory: Reports: no symptoms Allergies: Coded Allergies: No Known Allergies (Unverified , 02/17/16) Objective Last 24 Hour Vital Signs Date Time Temp Pulse Resp B/P Pulse Ox O2 Delivery O2 Flow Rate FiO2 01/25/17 13:13 98 20 95 3.0 01/25/17 12:03 97.7 01/25/17 12:00 40 01/25/17 12:00 97 01/25/17 11:26 3.0 01/25/17 10:03 98 18 125/97 94 01/25/17 08:42 3.0 01/25/17 08:37 131/85 01/25/17 08:00 40 01/25/17 08:00 80 01/25/17 07:03 93 20 97 3.0 01/25/17 05:24 81 19 97 Facial 45 01/25/17 04:00 40 01/25/17 04:00 88 01/25/17 04:00 97.7 95 24 120/85 88 Nasal Cannula 5.0 01/25/17 03:30 82 19 97 Facial 45 01/25/17 01:00 82 18 96 Facial 45 01/25/17 00:00 40 01/25/17 00:00 83 01/24/17 23:00 97 19 96 Facial 45 01/24/17 21:00 91 18 93 Facial 45 01/24/17 20:00 97.2 92 18 112/76 93 Bi-pap 45 01/24/17 19:16 92 19 93 Facial 45 01/24/17 18:00 40 01/24/17 16:55 96 21 91 Facial 45 01/24/17 16:40 97.7 96 19 123/82 91 Bi-pap 45 01/24/17 16:31 103 01/24/17 15:41 97.7 94 17 113/85 94 Bi-pap 2.0 40 01/24/17 15:30 94 17 113/85 94 Bi-pap 40 01/24/17 14:36 104 20 88 Facial 45 01/24/17 14:30 102 18 115/76 87 Bi-pap 40 Intake and Output 01/24/17 01/25/17 19:00 07:00 Intake Total 1530 ml 105 ml Output Total 200 ml Balance 1530 ml -95 ml Intake Oral 200 ml 50 ml IV Total 1330 ml 55 ml Output Urine Total 200 ml # Voids 1 3 General Appearance: WD/WN HEENT: normocephalic, atraumatic Respiratory/Chest: chest wall non-tender, respiratory distress, crackles/rales Cardiovascular: normal peripheral pulses, normal rate Abdomen: normal bowel sounds, soft, non tender Extremities: no cyanosis 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 Laboratory Tests 01/24/17 22:00: Urine Color Pale yellow, Urine Appearance Clear, Urine pH 6.5, Urine Specific [place] 1.015, Urine Protein 2+H, Urine Glucose (UA) Negative, Urine Ketones Negative, Urine Occult Blood 5+H, Urine Nitrite PositiveH, Urine Bilirubin Negative, Urine Urobilinogen Normal, Urine Leukocyte Esterase 1+H, Urine RBC 40- 60H, Urine WBC 5-10H, Urine Squamous Epithelial Cells Few, Urine Bacteria ModerateH, Urine Hyaline Casts 2-4H 01/25/17 03:25: White Blood Count 16.0H, Red Blood Count 4.16L, Hemoglobin 12.0, Hematocrit 37.1 , Mean Corpuscular Volume 89, Mean Corpuscular Hemoglobin 28.9, Mean Corpuscular Hemoglobin Concent 32.4, Red Cell Distribution Width 15.0H, Platelet Count 206, Mean Platelet Volume 6.0L, Neutrophils (%) (Auto) , Lymphocytes (%) (Auto) , Monocytes (%) (Auto) , Eosinophils (%) (Auto) , Basophils (%) (Auto) , Differential Total Cells Counted 100, Neutrophils % ( Manual) 84H, Lymphocytes % (Manual) 8L, Monocytes % (Manual) 6, Eosinophils % ( Manual) 0, Basophils % (Manual) 0, Band Neutrophils 2, Platelet Estimate Adequate, Platelet Morphology Normal, Anisocytosis 1+, Sodium Level 138, Potassium Level 4.3, Chloride Level 96L, Carbon Dioxide Level 27, Anion Gap 15, Blood Urea Nitrogen 19, Creatinine 0.7, Estimat Glomerular Filtration Rate , Glucose Level 179H, Hemoglobin A1c 5.9, Uric Acid 8.5H, Calcium Level 8.9, Phosphorus Level 3.4, Magnesium Level 1.6L, Total Bilirubin 0.3, Gamma Glutamyl Transpeptidase 22, Aspartate Amino Transf (AST/SGOT) 12, Alanine Aminotransferase (ALT/SGPT) 12, Alkaline Phosphatase 91, Total Creatine Kinase 25L, C-Reactive Protein, Quantitative 14.2H, Pro-B-Type Natriuretic Peptide 1043H, Total Protein 6.2L, Albumin 3.3L, Globulin 2.9, Albumin/Globulin Ratio 1.1, Triglycerides Level 89, Cholesterol Level 122, LDL Cholesterol 48L, HDL Cholesterol 56, Cholesterol/HDL Ratio 2.2L, Thyroid Stimulating Hormone (TSH) 0.912 Current Medications Medications (Trade) Dose Ordered Sig/Meera Route PRN Reason Start Time Stop Time Status Last Admin Dose Admin Acetaminophen (Tylenol) 650 mg Q4H PRN ORAL T>100.5 01/24/17 17:00 02/23/17 16:59 Acetaminophen/ Hydrocodone Bitart ([place] 5/325) 1 tab Q4H PRN ORAL PAIN 4-10 01/24/17 17:00 01/31/17 16:59 01/25/17 11:04 Albuterol/ Ipratropium (DuoNeb 0.5-3(2.5)mg/3ml) 3 ml Q4H PRN HHN Shortness of Breath 01/24/17 16:45 01/29/17 16:44 Atorvastatin Calcium (Lipitor) 40 mg BEDTIME ORAL 01/24/17 21:00 02/23/17 20:59 01/24/17 20:56 Ceftriaxone Sodium/Dextrose (Rocephin/D5W) 55 ml @ 110 mls/hr Q24H IVPB 01/24/17 18:00 01/31/17 17:59 01/24/17 19:27 Clopidogrel Bisulfate (Plavix) 75 mg DAILY ORAL 01/25/17 09:00 02/24/17 08:59 01/25/17 08:37 Docusate Sodium (Colace) 100 mg TID ORAL 01/24/17 18:00 02/23/17 17:59 01/25/17 13:16 Furosemide (Lasix) 40 mg DAILY IV 01/25/17 09:00 02/24/17 08:59 01/25/17 08:37 Lisinopril (Zestril) 10 mg DAILY ORAL 01/25/17 09:00 02/24/17 08:59 01/25/17 08:37 Magnesium Sulfate (Magnesium Sulfate 1gm/100ml) 100 ml @ 100 mls/hr Q1H IVPB 01/25/17 13:00 01/25/17 14:59 01/25/17 13:56 Methylprednisolone Sodium Succinate 40 mg 40 mg EVERY 8 HOURS IVP 01/25/17 14:00 02/24/17 13:59 01/25/17 13:16 Ondansetron HCl 4 mg 4 mg Q6H PRN IV Nausea & Vomiting 01/24/17 16:45 02/23/17 16:44 Pantoprazole (Protonix) 40 mg EVERY 12 HOURS ORAL 01/24/17 21:00 02/23/17 20:59 01/25/17 08:38 Polyethylene Glycol (Miralax) 17 gm BEDTIME ORAL 01/24/17 21:00 02/23/17 20:59 01/24/17 20:57 SUSIE ROCHA Jan 25, 2017 14:17
[2017-01-25 16:00] VITALS: BP 114/72
[2017-01-25] MEDS: cefTRIAXone 1 GM in D5W 55 ML IVPB SCH (18:02)
[2017-01-25 19:00] VITALS: BP 130/79
[2017-01-25] MEDS: Miralax 17gm pkt ORAL SCH (21:28)
[2017-01-26] VITALS: BP 130/86
[2017-01-26] MEDS: Norco 5mg/325mg tab ORAL PRN ×7 (00:04→20:36)
[2017-01-26] MEDS: Promethazine/Codeine 5ml UD ORAL PRN ×2 (01:03→09:20)
[2017-01-26 04:00] VITALS: BP 132/86
[2017-01-26 06:37] LABS: BASOPHILS % (AUTO) 0.4 % (0.0-2.0); EOSINOPHILS % (AUTO) 0.2 % (0.0-3.0); LYMPHOCYTES % (AUTO) 18.9 % (20.0-45.0); MEAN CORPUSCULAR HEMOGLOBIN 29.6 PG (27.0-31.0); MEAN CORPUSCULAR HGB CONC 33.1 G/DL (32.0-36.0); MEAN CORPUSCULAR VOLUME 89 FL (80-99); MEAN PLATELET VOLUME 6.3 FL (6.5-10.1); MONOCYTES % (AUTO) 8.5 % (1.0-10.0); PLATELET COUNT 238 K/UL (150-450); RED BLOOD COUNT 4.24 M/UL (4.20-5.40); RED CELL DISTRIBUTION WIDTH 15.1 % (11.6-14.8)
[2017-01-26 06:42] LABS: ALANINE AMINOTRANSFERASE 18 U/L (3-33); ALBUMIN/GLOBULIN RATIO 1.2 (1.0-2.7); ANION GAP 13 (5-15); ASPARTATE AMINO TRANSFERASE 19 U/L (5-40); CALCIUM 8.9 mg/dL (8.6-10.2); CARBON DIOXIDE 30 mEQ/L (20-30); CHLORIDE 96 mEQ/L (98-107); CREATININE 0.7 mg/dL (0.5-0.9); CRP QUANT 4.5 mg/dL (< 0.5); HEMOLYSIS 2; MAGNESIUM 2.2 mg/dL (1.7-2.5); PHOSPHORUS 2.8 mg/dL (2.5-4.8); POTASSIUM 4.2 mEQ/L (3.4-4.9); SODIUM 139 mEQ/L (135-145); TOTAL PROTEIN 6.3 g/dL (6.6-8.7); URIC ACID 7.9 mg/dL (3.0-7.5)
[2017-01-26 08:00] VITALS: BP 121/53
[2017-01-26] MEDS: Docusate 100mg tablet ORAL SCH ×4 (08:26→18:05)
[2017-01-26] MEDS: Lisinopril 10mg tab ORAL SCH (08:27)
[2017-01-26] MEDS ORDERED: Solu-MEDROL 40mg Inj IVP SCH (09:00)
--- NOTE | 2017-01-26 09:33 | General Progress Note ---
Assessment/Plan Status: stable Assessment/Plan Status: Hypoxic respiratory failure, most likely secondary to chronic obstructive pulmonary disease. The patient may have at the same time worsening congestive heart failure. Also, other conditions include chronic arthritis, multiple abdominal surgeries, and also as mentioned earlier previous history of the gastrointestinal bleed, and previous history of respiratory failure, requiring mechanical intubation. ? UTI Plan: Patient started with BIPAP, now seems improved Currently on O2 cannula empirically, on ceftriaxone as the patient was taking it in previous admissions while the urine cultures are pending. Protonix, intravenous Solu-Medrol ( with tapering aim) , lisinopril, breathing treatment, pain medication, intravenous Lasix, stool softeners, and Plavix will be given. A 2D echocardiogram is ordered Mag supplement to telemetry change Solumedrol to PO prednisone Subjective ROS Limited/Unobtainable: No Constitutional: Reports: malaise, other - feels better Allergies: Coded Allergies: No Known Allergies (Unverified , 02/17/16) Objective Last 24 Hour Vital Signs Date Time Temp Pulse Resp B/P Pulse Ox O2 Delivery O2 Flow Rate FiO2 01/26/17 08:27 132/86 01/26/17 07:53 99 Nasal Cannula 4.0 01/26/17 07:49 Nasal Cannula 4.0 01/26/17 07:46 108 18 Nasal Cannula 4.0 01/26/17 05:12 97.7 01/26/17 04:00 73 01/26/17 04:00 98.1 81 24 132/86 95 Nasal Cannula 5.0 01/26/17 00:00 71 01/26/17 00:00 97.7 85 24 130/86 94 Nasal Cannula 5.0 01/25/17 23:00 89 20 97 Nasal Cannula 4.0 36 01/25/17 22:55 84 18 97 Nasal Cannula 4.0 36 01/25/17 20:00 86 01/25/17 19:23 Nasal Cannula 3.0 32 01/25/17 19:23 96 Nasal Cannula 3.0 32 01/25/17 19:22 3.0 01/25/17 19:00 97.7 92 20 130/79 79 Nasal Cannula 3.0 01/25/17 17:08 3.0 01/25/17 16:55 4.0 01/25/17 16:00 90 01/25/17 16:00 97.3 89 20 114/72 94 Nasal Cannula 3.0 01/25/17 15:03 3.0 01/25/17 13:13 98 20 95 3.0 01/25/17 12:00 97.9 98 20 129/81 92 Nasal Cannula 3.4 01/25/17 12:00 40 01/25/17 12:00 97 01/25/17 11:26 3.0 01/25/17 10:03 98 18 125/97 94 Intake and Output 01/25/17 01/26/17 19:00 07:00 Intake Total 350 ml 120 ml Balance 350 ml 120 ml Intake Oral 350 ml 120 ml # Voids 8 Laboratory Tests 01/26/17 05:45: White Blood Count 15.0H, Red Blood Count 4.24, Hemoglobin 12.6, Hematocrit 37.9 , Mean Corpuscular Volume 89, Mean Corpuscular Hemoglobin 29.6, Mean Corpuscular Hemoglobin Concent 33.1, Red Cell Distribution Width 15.1H, Platelet Count 238, Mean Platelet Volume 6.3L, Neutrophils (%) (Auto) 72.0, Lymphocytes (%) (Auto) 18.9L, Monocytes (%) (Auto) 8.5, Eosinophils (%) (Auto) 0.2, Basophils (%) (Auto) 0.4, Sodium Level 139, Potassium Level 4.2, Chloride Level 96L, Carbon Dioxide Level 30, Anion Gap 13, Blood Urea Nitrogen 22, Creatinine 0.7, Estimat Glomerular Filtration Rate , Glucose Level 130H, Uric Acid 7.9H, Calcium Level 8.9, Phosphorus Level 2.8, Magnesium Level 2.2, Total Bilirubin 0.2, Aspartate Amino Transf (AST/SGOT) 19, Alanine Aminotransferase ( ALT/SGPT) 18, Alkaline Phosphatase 70, C-Reactive Protein, Quantitative 4.5H, Total Protein 6.3L, Albumin 3.5, Globulin 2.8, Albumin/Globulin Ratio 1.2 Height (Feet): 5 Height (Inches): 4.00 Weight (Pounds): 160 General Appearance: mild distress, other - more responsive Neck: stiff neck Cardiovascular: other - variable rates Respiratory/Chest: decreased breath sounds Abdomen: soft Objective other physical exam not changed PAWAN AZAR 18, 2017 09:33
[2017-01-26 12:00] VITALS: BP 138/96
--- NOTE | 2017-01-26 13:13 | Pulmonology Progress Note ---
Assessment/Plan Assessment/Plan ASSESSMENT acute hypoxemic hypercapnic respiratory failure requiring BiPAP - resolved hx of RF with intubation acute COPD exacerbation PNA HTN CAD anemia mild pulmonary HTN mild to moderate MR PLAN OF CARE PAT off BiPAP O2 HHN prn titrate to keep FiO2 above 92% steroids changed to oral last CXR with increasing R base infiltrate but leucocytosis trending down, clinically improving fup with CXR on Saturday abx, blood cx negative, urine cx with mixed urogenital contaminants , sputum cx if able antitussive prn empiric abx ECHO with EF 55-60% and RVSP of 48 c/w moderate pulmonary HTN, + mild to moderate MR continue Plavix, statin BP management with current regimen and optimize as needed GI prophylaxis PT/OT case discussed and evaluated by supervising physician Subjective Allergies: Coded Allergies: No Known Allergies (Unverified , 02/17/16) Subjective leukocytosis trending down off BiPAP on O2 via NC sat stable no signs of respiratory distress Objective Last 24 Hour Vital Signs Date Time Temp Pulse Resp B/P Pulse Ox O2 Delivery O2 Flow Rate FiO2 01/26/17 12:00 87 01/26/17 09:25 97.7 01/26/17 09:00 100 01/26/17 08:27 132/86 01/26/17 08:00 97.5 83 18 121/53 93 Nasal Cannula 4.0 01/26/17 07:53 99 Nasal Cannula 4.0 01/26/17 07:49 Nasal Cannula 4.0 01/26/17 07:46 108 18 Nasal Cannula 4.0 01/26/17 04:00 73 01/26/17 04:00 98.1 81 24 132/86 95 Nasal Cannula 5.0 01/26/17 00:00 71 01/26/17 00:00 97.7 85 24 130/86 94 Nasal Cannula 5.0 01/25/17 23:00 89 20 97 Nasal Cannula 4.0 36 01/25/17 22:55 84 18 97 Nasal Cannula 4.0 36 01/25/17 20:00 86 01/25/17 19:23 Nasal Cannula 3.0 32 01/25/17 19:23 96 Nasal Cannula 3.0 32 01/25/17 19:22 3.0 01/25/17 19:00 97.7 92 20 130/79 79 Nasal Cannula 3.0 01/25/17 17:08 3.0 01/25/17 16:55 4.0 01/25/17 16:00 90 01/25/17 16:00 97.3 89 20 114/72 94 Nasal Cannula 3.0 01/25/17 15:03 3.0 Intake and Output 01/25/17 01/26/17 19:00 07:00 Intake Total 350 ml 120 ml Balance 350 ml 120 ml Intake Oral 350 ml 120 ml # Voids 8 General Appearance: no acute distress, other - awake, responsive elderly female HEENT: normocephalic, atraumatic, anicteric, other - O2 via NC Respiratory/Chest: lungs clear - with moderate air exchange , no accessory muscle use Cardiovascular: normal rate, regular rhythm, no JVD Abdomen: normal bowel sounds, other - 3 abdominal hernias Extremities: other - +1 edema BLE Neurologic/Psychiatric: abnormal gait, alert, responsive Musculoskeletal: atrophy - BLE Microbiology Date/Time Source Procedure Growth Status 01/24/17 11:00 Blood Blood Culture - Preliminary NO GROWTH AFTER 48 HOURS Resulted 01/24/17 10:55 Blood Blood Culture - Preliminary NO GROWTH AFTER 48 HOURS Resulted 01/24/17 14:00 Nasal Nares MRSA Culture - Final NO METHICILLIN RESISTANT STAPH AUREUS... Complete 01/24/17 22:00 Indwelling Cath Urine Culture - Preliminary Mixed Urogenital Contaminants Resulted Laboratory Tests 01/26/17 05:45: White Blood Count 15.0H, Red Blood Count 4.24, Hemoglobin 12.6, Hematocrit 37.9 , Mean Corpuscular Volume 89, Mean Corpuscular Hemoglobin 29.6, Mean Corpuscular Hemoglobin Concent 33.1, Red Cell Distribution Width 15.1H, Platelet Count 238, Mean Platelet Volume 6.3L, Neutrophils (%) (Auto) 72.0, Lymphocytes (%) (Auto) 18.9L, Monocytes (%) (Auto) 8.5, Eosinophils (%) (Auto) 0.2, Basophils (%) (Auto) 0.4, Sodium Level 139, Potassium Level 4.2, Chloride Level 96L, Carbon Dioxide Level 30, Anion Gap 13, Blood Urea Nitrogen 22, Creatinine 0.7, Estimat Glomerular Filtration Rate , Glucose Level 130H, Uric Acid 7.9H, Calcium Level 8.9, Phosphorus Level 2.8, Magnesium Level 2.2, Total Bilirubin 0.2, Aspartate Amino Transf (AST/SGOT) 19, Alanine Aminotransferase ( ALT/SGPT) 18, Alkaline Phosphatase 70, C-Reactive Protein, Quantitative 4.5H, Total Protein 6.3L, Albumin 3.5, Globulin 2.8, Albumin/Globulin Ratio 1.2 Current Medications Medications (Trade) Dose Ordered Sig/Meera Route PRN Reason Start Time Stop Time Status Last Admin Dose Admin Acetaminophen (Tylenol) 650 mg Q4H PRN ORAL T>100.5 01/24/17 17:00 02/23/17 16:59 Acetaminophen/ Hydrocodone Bitart ([place] 5/325) 1 tab Q4H PRN ORAL PAIN 4-10 01/24/17 17:00 01/31/17 16:59 01/26/17 12:24 Albuterol/ Ipratropium (DuoNeb 0.5-3(2.5)mg/3ml) 3 ml Q4H PRN HHN Shortness of Breath 01/24/17 16:45 01/29/17 16:44 01/25/17 23:02 Atorvastatin Calcium (Lipitor) 40 mg BEDTIME ORAL 01/24/17 21:00 02/23/17 20:59 01/25/17 21:27 Ceftriaxone Sodium/Dextrose (Rocephin/D5W) 55 ml @ 110 mls/hr Q24H IVPB 01/24/17 18:00 01/31/17 17:59 01/25/17 18:02 Clopidogrel Bisulfate (Plavix) 75 mg DAILY ORAL 01/25/17 09:00 02/24/17 08:59 01/26/17 08:27 Docusate Sodium (Colace) 100 mg TID ORAL 01/24/17 18:00 02/23/17 17:59 01/26/17 12:23 Furosemide (Lasix) 40 mg DAILY IV 01/25/17 09:00 02/24/17 08:59 01/26/17 08:27 Lisinopril (Zestril) 10 mg DAILY ORAL 01/25/17 09:00 02/24/17 08:59 01/26/17 08:27 Ondansetron HCl 4 mg 4 mg Q6H PRN IV Nausea & Vomiting 01/24/17 16:45 02/23/17 16:44 Pantoprazole (Protonix) 40 mg EVERY 12 HOURS ORAL 01/24/17 21:00 02/23/17 20:59 01/26/17 08:26 Polyethylene Glycol (Miralax) 17 gm BEDTIME ORAL 01/24/17 21:00 02/23/17 20:59 01/25/17 21:28 Prednisone (predniSONE) 40 mg DAILY ORAL 01/27/17 09:00 02/26/17 08:59 Promethazine HCl/ Codeine (Phenergan with Codeine) 5 ml Q6H PRN ORAL For Cough 01/26/17 00:30 02/25/17 00:29 01/26/17 09:20 Ethan ([facility])Kathleen NP Jan 26, 2017 13:13
[2017-01-26 16:00] VITALS: BP 126/80
[2017-01-26] MEDS: cefTRIAXone 1 GM in D5W 55 ML IVPB SCH (18:05)
[2017-01-26 20:00] VITALS: BP 113/70
[2017-01-26] MEDS: Miralax 17gm pkt ORAL SCH (20:36)
[2017-01-27] VITALS: BP 108/70
[2017-01-27] MEDS: Norco 5mg/325mg tab ORAL PRN ×6 (00:42→21:39)
[2017-01-27 04:00] VITALS: BP 122/77
[2017-01-27 08:00] VITALS: BP 131/85
[2017-01-27] MEDS ORDERED: PredniSONE 20mg tab ORAL SCH (09:00)
[2017-01-27] MEDS: Lisinopril 10mg tab ORAL SCH (09:33)
[2017-01-27] MEDS: Docusate 100mg tablet ORAL SCH ×3 (09:33→17:41)
--- NOTE | 2017-01-27 09:46 | Pulmonology Progress Note ---
Assessment/Plan Assessment/Plan ASSESSMENT acute hypoxemic hypercapnic respiratory failure requiring BiPAP - resolved hx of RF with intubation acute COPD exacerbation PNA HTN CAD anemia mild pulmonary HTN mild to moderate MR PLAN OF CARE PTA off BiPAP O2 HHN prn titrate to keep FiO2 above 92% steroids changed to oral last CXR with increasing R base infiltrate but leucocytosis trending down, clinically improving fup with CXR on Saturday abx, blood cx negative, urine cx with mixed urogenital contaminants , sputum cx if able antitussive prn empiric abx ECHO with EF 55-60% and RVSP of 48 c/w moderate pulmonary HTN, + mild to moderate MR continue Plavix, statin BP management with current regimen and optimize as needed GI prophylaxis PT/OT consider transfer to [place] if ok with PMD case discussed and evaluated by supervising physician Subjective Allergies: Coded Allergies: No Known Allergies (Unverified , 02/17/16) Subjective leukocytosis trending down off BiPAP on O2 via NC sat stable no signs of respiratory distress Objective Last 24 Hour Vital Signs Date Time Temp Pulse Resp B/P Pulse Ox O2 Delivery O2 Flow Rate FiO2 01/27/17 09:33 131/85 01/27/17 08:02 Nasal Cannula 3.0 36 01/27/17 08:02 98 Nasal Cannula 3.0 36 01/27/17 08:01 83 18 Nasal Cannula 3.0 36 01/27/17 08:00 72 01/27/17 08:00 97.7 97 18 131/85 94 Nasal Cannula 5.0 01/27/17 04:00 96.4 81 19 122/77 98 Nasal Cannula 3.0 01/27/17 03:31 69 01/27/17 00:00 97.5 82 18 108/70 95 Nasal Cannula 3.0 01/26/17 23:34 73 01/26/17 23:16 85 18 Nasal Cannula 3.0 01/26/17 23:16 95 Nasal Cannula 3.0 01/26/17 23:16 Nasal Cannula 3.0 01/26/17 21:39 97.0 01/26/17 20:00 67 01/26/17 20:00 97.2 96 18 113/70 94 Nasal Cannula 2.0 01/26/17 16:00 97.0 95 24 126/80 94 Nasal Cannula 2.0 01/26/17 12:00 97.2 93 22 138/96 94 Nasal Cannula 4.0 01/26/17 12:00 87 Intake and Output 01/26/17 01/27/17 19:00 07:00 Intake Total 360 ml 50 ml Balance 360 ml 50 ml Intake Oral 360 ml 50 ml # Voids 4 5 Objective General Appearance: no acute distress, other - awake, responsive elderly female HEENT: normocephalic, atraumatic, anicteric, other - O2 via NC Respiratory/Chest: lungs clear - with moderate air exchange , no accessory muscle use Cardiovascular: normal rate, regular rhythm, no JVD Abdomen: normal bowel sounds, 3 abdominal hernias Extremities: other - +1 edema BLE Neurologic/Psychiatric: abnormal gait, alert, responsive Musculoskeletal: atrophy - BLE Microbiology Date/Time Source Procedure Growth Status 01/24/17 11:00 Blood Blood Culture - Preliminary NO GROWTH AFTER 48 HOURS Resulted 01/24/17 10:55 Blood Blood Culture - Preliminary NO GROWTH AFTER 48 HOURS Resulted 01/24/17 14:00 Nasal Nares MRSA Culture - Final NO METHICILLIN RESISTANT STAPH AUREUS... Complete 01/24/17 22:00 Indwelling Cath Urine Culture - Preliminary Mixed Urogenital Contaminants Resulted Current Medications Medications (Trade) Dose Ordered Sig/Meera Route PRN Reason Start Time Stop Time Status Last Admin Dose Admin Acetaminophen (Tylenol) 650 mg Q4H PRN ORAL T>100.5 01/24/17 17:00 02/23/17 16:59 Acetaminophen/ Hydrocodone Bitart ([place] 5/325) 1 tab Q4H PRN ORAL PAIN 4-10 01/24/17 17:00 01/31/17 16:59 01/27/17 04:46 Albuterol/ Ipratropium (DuoNeb 0.5-3(2.5)mg/3ml) 3 ml Q4H PRN HHN Shortness of Breath 01/24/17 16:45 01/29/17 16:44 01/25/17 23:02 Atorvastatin Calcium (Lipitor) 40 mg BEDTIME ORAL 01/24/17 21:00 02/23/17 20:59 01/26/17 20:36 Ceftriaxone Sodium/Dextrose (Rocephin/D5W) 55 ml @ 110 mls/hr Q24H IVPB 01/24/17 18:00 01/31/17 17:59 01/26/17 18:05 Clopidogrel Bisulfate (Plavix) 75 mg DAILY ORAL 01/25/17 09:00 02/24/17 08:59 01/27/17 09:33 Docusate Sodium (Colace) 100 mg TID ORAL 01/24/17 18:00 02/23/17 17:59 01/27/17 09:33 Furosemide (Lasix) 40 mg DAILY IV 01/25/17 09:00 02/24/17 08:59 01/27/17 09:33 Lisinopril (Zestril) 10 mg DAILY ORAL 01/25/17 09:00 02/24/17 08:59 01/27/17 09:33 Ondansetron HCl 4 mg 4 mg Q6H PRN IV Nausea & Vomiting 01/24/17 16:45 02/23/17 16:44 Pantoprazole (Protonix) 40 mg EVERY 12 HOURS ORAL 01/24/17 21:00 02/23/17 20:59 01/27/17 09:32 Polyethylene Glycol (Miralax) 17 gm BEDTIME ORAL 01/24/17 21:00 02/23/17 20:59 01/26/17 20:36 Prednisone (predniSONE) 40 mg DAILY ORAL 01/27/17 09:00 02/26/17 08:59 01/27/17 09:33 Promethazine HCl/ Codeine (Phenergan with Codeine) 5 ml Q6H PRN ORAL For Cough 01/26/17 00:30 02/25/17 00:29 01/26/17 09:20 [facility]adoT[facility]il HospitalKathleen Turk NP Jan 27, 2017 09:46
[2017-01-27] MEDS ORDERED: DuoNeb 0.5-3(2.5)mg/3ml neb HHN PRN ×2 (10:00→16:30)
[2017-01-27 12:00] VITALS: BP 108/62
--- NOTE | 2017-01-27 12:42 | General Progress Note ---
Assessment/Plan Status: stable Assessment/Plan Status: Hypoxic respiratory failure, most likely secondary to chronic obstructive pulmonary disease. The patient may have at the same time worsening congestive heart failure. Also, other conditions include chronic arthritis, multiple abdominal surgeries, and also as mentioned earlier previous history of the gastrointestinal bleed, and previous history of respiratory failure, requiring mechanical intubation. ? UTI Plan: no labs today- daughter at bedside Patient started with BIPAP, now seems improved Currently on O2 cannula empirically, on ceftriaxone as the patient was taking it in previous admissions while the urine cultures are pending. Protonix, intravenous Solu-Medrol ( with tapering aim) , lisinopril, breathing treatment, pain medication, intravenous Lasix, stool softeners, and Plavix will be given. A 2D echocardiogram is ordered Mag supplement to telemetry change Solumedrol to PO prednisone Subjective ROS Limited/Unobtainable: No Constitutional: Reports: malaise, other - clinically improved Allergies: Coded Allergies: No Known Allergies (Unverified , 02/17/16) Objective Last 24 Hour Vital Signs Date Time Temp Pulse Resp B/P Pulse Ox O2 Delivery O2 Flow Rate FiO2 01/27/17 09:33 131/85 01/27/17 08:02 Nasal Cannula 3.0 36 01/27/17 08:02 98 Nasal Cannula 3.0 36 01/27/17 08:01 83 18 Nasal Cannula 3.0 36 01/27/17 08:00 72 01/27/17 08:00 97.7 97 18 131/85 94 Nasal Cannula 5.0 01/27/17 04:00 96.4 81 19 122/77 98 Nasal Cannula 3.0 01/27/17 03:31 69 01/27/17 00:00 97.5 82 18 108/70 95 Nasal Cannula 3.0 01/26/17 23:34 73 01/26/17 23:16 85 18 Nasal Cannula 3.0 01/26/17 23:16 95 Nasal Cannula 3.0 01/26/17 23:16 Nasal Cannula 3.0 01/26/17 21:39 97.0 01/26/17 20:00 67 01/26/17 20:00 97.2 96 18 113/70 94 Nasal Cannula 2.0 01/26/17 16:00 97.0 95 24 126/80 94 Nasal Cannula 2.0 Intake and Output 01/26/17 01/27/17 19:00 07:00 Intake Total 360 ml 50 ml Balance 360 ml 50 ml Intake Oral 360 ml 50 ml # Voids 4 5 Height (Feet): 5 Height (Inches): 4.00 Weight (Pounds): 160 General Appearance: no apparent distress Cardiovascular: normal rate Respiratory/Chest: decreased breath sounds Abdomen: soft, other - hernia Objective other physical exam not changed PAWAN AZAR Jan 27, 2017 12:42
[2017-01-27] MEDS ORDERED: Furosemide 40mg tab ORAL SCH (12:45)
[2017-01-27 16:44] VITALS: BP 101/70
[2017-01-27] MEDS ORDERED: Promethazine/Codeine 5ml UD ORAL PRN (16:45)
[2017-01-27] MEDS: cefTRIAXone 1 GM in D5W 55 ML IVPB SCH (18:30)
[2017-01-27 20:00] VITALS: BP 104/74
[2017-01-27] MEDS ORDERED: Miralax 17gm pkt ORAL SCH (21:00)
[2017-01-28] VITALS (7 sets, daily range): BP systolic 95–146; BP diastolic 57–111
[2017-01-28] MEDS: Norco 5mg/325mg tab ORAL PRN ×4 (01:31→17:25)
[2017-01-28 07:07] LABS: BASOPHILS % (AUTO) 0.9 % (0.0-2.0); EOSINOPHILS % (AUTO) 0.5 % (0.0-3.0); LYMPHOCYTES % (AUTO) 28.3 % (20.0-45.0); MEAN CORPUSCULAR HEMOGLOBIN 28.2 PG (27.0-31.0); MEAN CORPUSCULAR HGB CONC 31.7 G/DL (32.0-36.0); MEAN CORPUSCULAR VOLUME 89 FL (80-99); MEAN PLATELET VOLUME 5.3 FL (6.5-10.1); MONOCYTES % (AUTO) 11.3 % (1.0-10.0); NEUTROPHILS % (AUTO) 59.1 % (45.0-75.0); PLATELET COUNT 300 K/UL (150-450); RED CELL DISTRIBUTION WIDTH 14.8 % (11.6-14.8); WHITE BLOOD COUNT 14.7 K/UL (4.8-10.8)
[2017-01-28 07:21] LABS: ALANINE AMINOTRANSFERASE 21 U/L (3-33); ALBUMIN/GLOBULIN RATIO 1.2 (1.0-2.7); ANION GAP 13 (5-15); ASPARTATE AMINO TRANSFERASE 16 U/L (5-40); CALCIUM 9.5 mg/dL (8.6-10.2); CARBON DIOXIDE 35 mEQ/L (20-30); CHLORIDE 94 mEQ/L (98-107); CREATININE 0.8 mg/dL (0.5-0.9); HEMOLYSIS 5; MAGNESIUM 1.9 mg/dL (1.7-2.5); PHOSPHORUS 3.5 mg/dL (2.5-4.8); SODIUM 142 mEQ/L (135-145); TOTAL PROTEIN 6.4 g/dL (6.6-8.7); URIC ACID 8.7 mg/dL (3.0-7.5)
[2017-01-28] MEDS ORDERED: Furosemide 40mg tab ORAL SCH (09:00)
[2017-01-28] MEDS ORDERED: Lisinopril 10mg tab ORAL SCH (09:00)
[2017-01-28] MEDS ORDERED: PredniSONE 20mg tab ORAL SCH ×2 (09:00)
--- NOTE | 2017-01-28 09:42 | General Progress Note ---
Assessment/Plan Status: stable Assessment/Plan Status: Hypoxic respiratory failure, most likely secondary to chronic obstructive pulmonary disease. The patient may have at the same time worsening congestive heart failure. Also, other conditions include chronic arthritis, multiple abdominal surgeries, and also as mentioned earlier previous history of the gastrointestinal bleed, and previous history of respiratory failure, requiring mechanical intubation. ? UTI Plan: DC ECF O2 Taper PO Prednison empirically, on ceftriaxone as the patient was taking it in previous admissions while the urine cultures are pending. will switch to macrobid Protonix, , lisinopril, breathing treatment, pain medication, intravenous Lasix, stool softeners, and Plavix will be given. A 2D echocardiogram is ordered EjFx 60% Mag supplement Subjective ROS Limited/Unobtainable: No Allergies: Coded Allergies: No Known Allergies (Unverified , 02/17/16) Objective Last 24 Hour Vital Signs Date Time Temp Pulse Resp B/P Pulse Ox O2 Delivery O2 Flow Rate FiO2 01/28/17 09:34 95/57 01/28/17 08:15 97.5 93 21 128/73 95 Nasal Cannula 2.0 01/28/17 06:34 96.6 01/28/17 04:00 97.0 83 20 97/64 96 Nasal Cannula 2.0 01/28/17 00:00 97.0 81 20 102/67 94 Nasal Cannula 2.0 01/27/17 20:00 96.6 93 20 104/74 93 Room Air 01/27/17 19:00 Nasal Cannula 2.0 28 01/27/17 19:00 91 16 Nasal Cannula 2.0 28 01/27/17 19:00 96 Nasal Cannula 2.0 28 01/27/17 16:44 97.0 103 18 101/70 93 Nasal Cannula 01/27/17 12:00 97.7 97 18 108/62 94 Nasal Cannula 3.0 Intake and Output 01/27/17 01/28/17 19:00 07:00 Intake Total 505 ml 100 ml Balance 505 ml 100 ml Intake Oral 450 ml 100 ml IV Total 55 ml # Voids 4 5 Current Medications Medications (Trade) Dose Ordered Sig/Meera Route PRN Reason Start Time Stop Time Status Last Admin Dose Admin Acetaminophen (Tylenol) 650 mg Q4H PRN ORAL T>100.5 01/27/17 17:00 02/26/17 16:59 Acetaminophen/ Hydrocodone Bitart ([place] 5/325) 1 tab Q4H PRN ORAL PAIN 4-10 01/27/17 17:40 02/03/17 17:39 01/28/17 05:35 Albuterol/ Ipratropium (DuoNeb 0.5-3(2.5)mg/3ml) 3 ml Q4H PRN HHN Shortness of Breath 01/27/17 16:30 02/01/17 16:29 Atorvastatin Calcium (Lipitor) 40 mg BEDTIME ORAL 01/27/17 21:00 02/26/17 20:59 01/27/17 21:38 Ceftriaxone Sodium/Dextrose (Rocephin/D5W) 55 ml @ 110 mls/hr Q24H IVPB 01/27/17 18:00 02/03/17 17:59 01/27/17 18:30 Clopidogrel Bisulfate (Plavix) 75 mg DAILY ORAL 01/28/17 09:00 02/27/17 08:59 Docusate Sodium (Colace) 100 mg TID ORAL 01/27/17 18:00 02/26/17 17:59 01/27/17 17:41 Furosemide (Lasix) 40 mg DAILY ORAL 01/28/17 09:00 02/27/17 08:59 Lisinopril (Zestril) 10 mg DAILY ORAL 01/28/17 09:00 02/27/17 08:59 Ondansetron HCl (Zofran) 4 mg Q6H PRN IV Nausea & Vomiting 01/27/17 16:45 02/26/17 16:44 Pantoprazole (Protonix) 40 mg EVERY 12 HOURS ORAL 01/27/17 21:00 02/26/17 20:59 01/27/17 21:37 Polyethylene Glycol (Miralax) 17 gm BEDTIME ORAL 01/27/17 21:00 02/26/17 20:59 01/27/17 21:38 Prednisone (predniSONE) 30 mg DAILY ORAL 01/28/17 09:00 02/27/17 08:59 Promethazine HCl/ Codeine (Phenergan with Codeine) 5 ml Q6H PRN ORAL For Cough 01/27/17 16:45 02/26/17 16:44 Laboratory Tests 01/28/17 05:45: White Blood Count 14.7H, Red Blood Count 4.90, Hemoglobin 13.8, Hematocrit 43.7 , Mean Corpuscular Volume 89, Mean Corpuscular Hemoglobin 28.2, Mean Corpuscular Hemoglobin Concent 31.7L, Red Cell Distribution Width 14.8, Platelet Count 300, Mean Platelet Volume 5.3L, Neutrophils (%) (Auto) 59.1, Lymphocytes (%) (Auto) 28.3, Monocytes (%) (Auto) 11.3H, Eosinophils (%) (Auto) 0.5, Basophils (%) (Auto) 0.9, Sodium Level 142, Potassium Level 4.0, Chloride Level 94L, Carbon Dioxide Level 35H, Anion Gap 13, Blood Urea Nitrogen 28H, Creatinine 0.8, Estimat Glomerular Filtration Rate , Glucose Level 107H, Uric Acid 8.7H, Calcium Level 9.5, Phosphorus Level 3.5, Magnesium Level 1.9, Total Bilirubin 0.3, Aspartate Amino Transf (AST/SGOT) 16, Alanine Aminotransferase ( ALT/SGPT) 21, Alkaline Phosphatase 73, Total Protein 6.4L, Albumin 3.5, Globulin 2.9, Albumin/Globulin Ratio 1.2 Height (Feet): 5 Height (Inches): 4.00 Weight (Pounds): 160 General Appearance: no apparent distress Cardiovascular: regular rhythm Respiratory/Chest: decreased breath sounds Abdomen: soft Objective other physical exam not changed PAWAN AZAR 20, 2017 09:42
[2017-01-28] MEDS: Docusate 100mg tablet ORAL SCH ×3 (09:44→18:00)
[2017-01-28] MEDS ORDERED: PREDNISONE20 MG ORAL (09:46)
--- NOTE | 2017-01-28 09:59 | Discharge Instructions ---
Discharge Instructions Discharge Instructions Follow up with: with PMD at [facility] Diet: cardiac 2 GM Na, low fat Follow Up Orders taper prednison 5 mg daily until finished For Congestive Heart Failure Reminder Report to your physician any weight gain of 5 pounds or more in one week. PAWAN AZAR Jan 28, 2017 09:59
--- NOTE | 2017-01-28 12:46 | Diagnostic Imaging Report ---
Indication: SOB Technique: One view of the chest Comparison: 01/25/2017 Findings: The heart is enlarged. There are interstitial congestive changes. There are degenerative changes of the right shoulder. Interstitial changes appear more striking than on the prior exam. There is decreased right basilar hazy opacity Impression: Mild interstitial congestive changes, may be increased from previous study Resolved right basilar parenchymal consolidation
[2017-01-28] MEDS: cefTRIAXone 1 GM in D5W 55 ML IVPB SCH (17:26)
--- NOTE | 2017-01-28 17:38 | Pulmonology Progress Note ---
Assessment/Plan Problems: (1) Respiratory failure (2) COPD exacerbation (3) Pneumonia (4) HTN (hypertension) (5) CAD (coronary artery disease) (6) Anemia Assessment/Plan diuresing well sputum induction taper steroids fast, change to prednisone 20 continue antibiotics, ceftriaxone, no cultures yet Subjective ROS Limited/Unobtainable: No Interval Events: no new complains Allergies: Coded Allergies: No Known Allergies (Unverified , 02/17/16) Objective Last 24 Hour Vital Signs Date Time Temp Pulse Resp B/P Pulse Ox O2 Delivery O2 Flow Rate FiO2 01/28/17 15:01 98.6 01/28/17 13:27 115/74 01/28/17 12:15 98.6 102 24 96/59 99 Room Air 01/28/17 09:34 95/57 01/28/17 08:15 97.5 93 21 128/73 95 Nasal Cannula 2.0 01/28/17 07:59 Nasal Cannula 2.0 28 01/28/17 07:57 109 16 Nasal Cannula 2.0 28 01/28/17 07:54 91 Nasal Cannula 2.0 28 01/28/17 04:00 97.0 83 20 97/64 96 Nasal Cannula 2.0 01/28/17 00:00 97.0 81 20 102/67 94 Nasal Cannula 2.0 01/27/17 20:00 96.6 93 20 104/74 93 Room Air 01/27/17 19:00 Nasal Cannula 2.0 28 01/27/17 19:00 91 16 Nasal Cannula 2.0 28 01/27/17 19:00 96 Nasal Cannula 2.0 28 Intake and Output 01/27/17 01/28/17 19:00 07:00 Intake Total 505 ml 100 ml Balance 505 ml 100 ml Intake Oral 450 ml 100 ml IV Total 55 ml # Voids 4 5 Objective General Appearance: WD/WN, no apparent distress, alert Lines, tubes and drains: peripheral HEENT: normocephalic, atraumatic, anicteric, mucous membranes moist Neck: non-tender, supple Respiratory/Chest: chest wall non-tender, normal breath sounds - with moderate air exchange , no respiratory distress, no accessory muscle use Cardiovascular/Chest: normal rate, regular rhythm, no JVD Abdomen: normal bowel sounds, non tender, soft Extremities: no calf tenderness, normal capillary refill Laboratory Tests 01/28/17 05:45: White Blood Count 14.7H, Red Blood Count 4.90, Hemoglobin 13.8, Hematocrit 43.7 , Mean Corpuscular Volume 89, Mean Corpuscular Hemoglobin 28.2, Mean Corpuscular Hemoglobin Concent 31.7L, Red Cell Distribution Width 14.8, Platelet Count 300, Mean Platelet Volume 5.3L, Neutrophils (%) (Auto) 59.1, Lymphocytes (%) (Auto) 28.3, Monocytes (%) (Auto) 11.3H, Eosinophils (%) (Auto) 0.5, Basophils (%) (Auto) 0.9, Sodium Level 142, Potassium Level 4.0, Chloride Level 94L, Carbon Dioxide Level 35H, Anion Gap 13, Blood Urea Nitrogen 28H, Creatinine 0.8, Estimat Glomerular Filtration Rate , Glucose Level 107H, Uric Acid 8.7H, Calcium Level 9.5, Phosphorus Level 3.5, Magnesium Level 1.9, Total Bilirubin 0.3, Aspartate Amino Transf (AST/SGOT) 16, Alanine Aminotransferase ( ALT/SGPT) 21, Alkaline Phosphatase 73, Total Protein 6.4L, Albumin 3.5, Globulin 2.9, Albumin/Globulin Ratio 1.2 Current Medications Medications (Trade) Dose Ordered Sig/Meera Route PRN Reason Start Time Stop Time Status Last Admin Dose Admin Acetaminophen (Tylenol) 650 mg Q4H PRN ORAL T>100.5 01/27/17 17:00 02/26/17 16:59 Acetaminophen/ Hydrocodone Bitart ([place] 5/325) 1 tab Q4H PRN ORAL PAIN 4-10 01/27/17 17:40 02/03/17 17:39 01/28/17 17:25 Albuterol/ Ipratropium (DuoNeb 0.5-3(2.5)mg/3ml) 3 ml Q4H PRN HHN Shortness of Breath 01/27/17 16:30 02/01/17 16:29 Atorvastatin Calcium (Lipitor) 40 mg BEDTIME ORAL 01/27/17 21:00 02/26/17 20:59 01/27/17 21:38 Ceftriaxone Sodium/Dextrose (Rocephin/D5W) 55 ml @ 110 mls/hr Q24H IVPB 01/27/17 18:00 02/03/17 17:59 01/28/17 17:26 Clopidogrel Bisulfate (Plavix) 75 mg DAILY ORAL 01/28/17 09:00 02/27/17 08:59 01/28/17 09:45 Docusate Sodium (Colace) 100 mg TID ORAL 01/27/17 18:00 02/26/17 17:59 01/28/17 14:59 Furosemide (Lasix) 40 mg DAILY ORAL 01/28/17 09:00 02/27/17 08:59 Lisinopril (Zestril) 10 mg DAILY ORAL 01/28/17 09:00 02/27/17 08:59 Ondansetron HCl (Zofran) 4 mg Q6H PRN IV Nausea & Vomiting 01/27/17 16:45 02/26/17 16:44 Pantoprazole (Protonix) 40 mg EVERY 12 HOURS ORAL 01/27/17 21:00 02/26/17 20:59 01/28/17 09:46 Polyethylene Glycol (Miralax) 17 gm BEDTIME ORAL 01/27/17 21:00 02/26/17 20:59 01/27/17 21:38 Prednisone (predniSONE) 30 mg DAILY ORAL 01/28/17 09:00 02/27/17 08:59 01/28/17 09:45 Promethazine HCl/ Codeine (Phenergan with Codeine) 5 ml Q6H PRN ORAL For Cough 01/27/17 16:45 02/26/17 16:44 SUSIE ROCHA Jan 28, 2017 17:38
[2017-01-28] MEDS ORDERED: NS 275ml ONE (18:43)
[2017-01-28] MEDS ORDERED: Tubing IV Secondary IV ONE (19:07)
[2017-01-28] MEDS ORDERED: NS 550ML IV ONE (19:07)
[2017-01-28] MEDS ORDERED: Sterile Water Irrig 1000ml IRRIG ONE (19:07)
--- NOTE | 2017-01-28 20:24 | Cardiology Report ---
APPROVED REPORT EXAM: Two-dimensional and M-mode echocardiogram with Doppler and color Doppler. INDICATION Left Ventricular Function M-Mode DIMENSIONS IVSd1.1 (0.7-1.1cm)Left Atrium (MM)3.5 (1.6-4.0cm) LVDd5.3 (3.5-5.6cm)Aortic Root2.9 (2.0-3.7cm) PWd1.0 (0.7-1.1cm)Aortic Cusp Exc.1.5 (1.5-2.0cm) IVSs2.1 cm LVDs2.7 (2.5-4.0cm) PWs2.0 cm Technically difficult study due to poor acoustic windows. Study quality precludes accurate assessment of regional wall motion. Normal left ventricular chamber size, systolic function and wall motion to extent visualized. Left ventricular ejection fraction estimated to be 55-60 %. No evidence of ventricular hypertrophy. Anterior Echo-free space, may be due to pericardial fat or effusion. All other cardiac chamber sizes are within normal limits. Mild focal aortic valve sclerosis with adequate cusp excursion. Mildly thickened mitral valve leaflets with normal excursion. Mild mitral annulus and aortic root calcification. Pulmonic valve not well visualized. Normal tricuspid valve structure. IVC dilated at 1.9 cm with physiologic collapse. A color flow and spectral Doppler study was performed and revealed: No aortic regurgitation. Mild to moderate mitral regurgitation. Left ventricular diastolic function could not be determined due to A-Fib. Mild tricuspid regurgitation. Tricuspid systolic velocities suggests peak right ventricular systolic pressure of 48 mmHg, consistent with mild pulmonary hypertension. No pulmonic regurgitation present.
[2017-01-29] MEDS ORDERED: PredniSONE 20mg tab ORAL SCH (09:00)
--- NOTE | 2017-01-29 11:44 | Cardiology Report ---
APPROVED REPORT EKG Measurement Heart [id number] NH 130P37 [id number] Sinus tachycardia Left anterior fascicular block Possible Anterior infarct, age undetermined Abnormal ECG
== END 2017-01-28 19:08 | DRG 189 ==
LOC: EMR 11:53 → 2W 11:58 → EDBEDREQ 12:18 → EDBEDREQSVC 12:18 → EDBEDREQ 14:37 → 2W 01-27 04:30 → 4E 01-27 16:07
PROC: 5A09357 Assistance with Respiratory Ventilation, Less than 24 Consecutive Hours, Continuous Positive Airway Pressure (ICD-10-PCS; principal; 2017-01-24)
DX: J96.01 Acute respiratory failure with hypoxia (principal); J18.9 Pneumonia, unspecified organism; J44.1 Chronic obstructive pulmonary disease with (acute) exacerbation; N39.0 Urinary tract infection, site not specified; D64.9 Anemia, unspecified; I50.9 Heart failure, unspecified; J96.02 Acute respiratory failure with hypercapnia; I34.0 Nonrheumatic mitral (valve) insufficiency; I10 Essential (primary) hypertension; I25.10 Atherosclerotic heart disease of native coronary artery without angina pectoris; Z79.02 Long term (current) use of antithrombotics/antiplatelets; Z86.73 Personal history of transient ischemic attack (TIA), and cerebral infarction without residual deficits; Z66 Do not resuscitate; K57.90 Diverticulosis of intestine, part unspecified, without perforation or abscess without bleeding
CPT/HCPCS: 36415; 36600; 71010; 80053; 80061; 81001; 82550; 82553; 82803; 82977; 83036; 83605; 83735; 83880; 84100; 84443; 84484; 84550; 85007; 85025; 86140; 87040; 87081; 87086; 93005; 93306; 94640; 94664; 94760; J7620

== ENCOUNTER 2017-04-21 17:55 | Inpatient (IN) | payer MEDICARE, MEDICAID ==
[~2017-04-21] VITALS: Ht 167.6 cm; Wt 68.0 kg
[2017-04-21] VITALS (9 sets, daily range): BP systolic 93–121; BP diastolic 60–93
[~2017-04-21 17:55] MED LIST changes: +PREDNISONE20 MG ORAL; +TRAMADOL HCL50 MG ORAL
[2017-04-21] MEDS ORDERED: Pantoprazole Inj IVP ONE (18:15)
[2017-04-21] MEDS ORDERED: DuoNeb 0.5-3(2.5)mg/3ml neb HHN ONE (18:15)
--- NOTE | 2017-04-21 18:43 | Emergency Room Report ---
History of Present Illness General Chief Complaint: Gastrointestinal Bleed Source: Medical Record ([place]) Present Illness HPI Patient is a 87-year-old female presented after increased difficulty breathing. Patient gradual onset of symptoms. Patient had associated increased cough. Patient was noted to have a prior history of COPD and uses oxygen at senior care. The patient's followed by Dr. Snow and [facility]. The patient was noted to have a prior episodes of GI bleeding. She reportedly taking oral anticoagulation. The patient had been having increased shortness of breath ([place]) Allergies: Coded Allergies: No Known Allergies (Unverified , 02/17/16) Patient History Reviewed Nursing Documentation: PMH: Agreed, PSxH: Agreed ([place]) Nursing Documentation-PMH Past Medical History: No History, Except For Hx Hypertension: Yes Hx COPD: Yes Hx Cancer: No Hx Gastrointestinal Problems: Yes Hx Neurological Problems: Yes - Spinal stenosis Hx Cerebrovascular Accident: Yes ([place]) Review of Systems All Other Systems: negative except mentioned in HPI ([place]) Physical Exam Vital Signs Date Time Temp Pulse Resp B/P Pulse Ox O2 Delivery O2 Flow Rate FiO2 04/21/17 17:56 120 32 93/63 04/21/17 18:30 95 Nasal Cannula 2.0 28 Sp02 EP Interpretation: reviewed, normal General Appearance: normal inspection, alert, GCS 15, moderate distress Head: atraumatic ENT: normal ENT inspection, hearing grossly normal, normal voice Neck: normal inspection, full range of motion, supple, no bony tend Respiratory: normal inspection, no respiratory distress, no retraction, rhonchi Cardiovascular #1: regular rate, rhythm, no edema Gastrointestinal: normal inspection, normal bowel sounds, non tender, soft, no guarding, no hernia Genitourinary: no CVA tenderness Musculoskeletal: normal inspection, back normal, normal range of motion Neurologic: normal inspection, alert, responsive, speech normal Psychiatric: normal inspection, judgement/insight normal, mood/affect normal Skin: normal inspection, normal color, no rash ([place]) Procedures Critical Care Time Critical Care Time 50 minutes for multiple re\re evaluations Discussion with specialty and admitting physician Concerning findings for possible worsening symptoms and possible (MARKEL CHEN D.O.) Medical Decision Making Diagnostic Impression: Primary Impression: Gastrointestinal hemorrhage Additional Impressions: Diverticulitis Severe sepsis ER Course Patient presented for GI bleeding. Differential diagnosis included was not limited to diverticulitis, pneumonia, anemia, ulcer, aortic aneurysm among others.Because of complexity of patient's case laboratory testing and imaging studies were ordered. Patient started on supplemental oxygen. Laboratory studies are notable for elevated white blood count. Patient was noted to be hypotensive in the emergency department. Patient started on IV fluids. This was type and crossed for blood. Dr. Pawan Snow was contacted for inpatient management. ([place]) ER Course Please refer to the initial note for the history exam Patient's white blood cell count is elevated Patient is tachycardic and mildly hypotensive CAT scan at this time revealed evidence of likely diverticulitis Patient received broad-spectrum antibiotics I did recontact the patient's admitting physician for up-to-date And patient admitted for further inpatient care Also please note given the high white blood cell count, tachycardia and hypotension patient meets criteria for severe sepsis, patient however is DO NOT RESUSCITATE Labs Test 04/21/17 18:27 04/21/17 20:11 White Blood Count 24.0 K/UL (4.8-10.8) Red Blood Count 3.75 M/UL (4.20-5.40) Hemoglobin 10.9 G/DL (12.0-16.0) Hematocrit 32.7 % (37.0-47.0) Mean Corpuscular Volume 87 FL (80-99) Mean Corpuscular Hemoglobin 29.1 PG (27.0-31.0) Mean Corpuscular Hemoglobin Concent 33.3 G/DL (32.0-36.0) Red Cell Distribution Width 14.6 % (11.6-14.8) Platelet Count 388 K/UL (150-450) Mean Platelet Volume 4.5 FL (6.5-10.1) Neutrophils (%) (Auto) % (45.0-75.0) Lymphocytes (%) (Auto) % (20.0-45.0) Monocytes (%) (Auto) % (1.0-10.0) Eosinophils (%) (Auto) % (0.0-3.0) Basophils (%) (Auto) % (0.0-2.0) Differential Total Cells Counted 100 Neutrophils % (Manual) 82 % (45-75) Lymphocytes % (Manual) 9 % (20-45) Monocytes % (Manual) 6 % (1-10) Eosinophils % (Manual) 0 % (0-3) Basophils % (Manual) 0 % (0-2) Band Neutrophils 3 % (0-8) Platelet Estimate Adequate Platelet Morphology Normal Anisocytosis 1+ Prothrombin Time 10.5 SEC (9.30-11.50) Prothromb Time International Ratio 1.0 (0.9-1.1) Activated Partial Thromboplast Time 25 SEC (23-33) Sodium Level 136 mEQ/L (135-145) Potassium Level 4.7 mEQ/L (3.4-4.9) Chloride Level 91 mEQ/L (98-107) Carbon Dioxide Level 28 mEQ/L (20-30) Anion Gap 17 (5-15) Blood Urea Nitrogen 40 mg/dL (7-23) Creatinine 1.2 mg/dL (0.5-0.9) Estimat Glomerular Filtration Rate mL/min (>60) Glucose Level 117 mg/dL (74-106) Lactic Acid Level 1.80 mmol/L (0.66-2.22) Calcium Level 9.0 mg/dL (8.6-10.2) Total Bilirubin 0.3 mg/dL (0.0-1.2) Aspartate Amino Transf (AST/SGOT) 14 U/L (5-40) Alanine Aminotransferase (ALT/SGPT) 19 U/L (3-33) Alkaline Phosphatase 84 U/L (35-104) Total Creatine Kinase 20 U/L (26-140) Creatine Kinase MB 2.6 ng/mL (< 3.8) Creatine Kinase MB Relative Index 13.0 Troponin I < 0.30 ng/mL (<=0.30) Total Protein 6.2 g/dL (6.6-8.7) Albumin 2.9 g/dL (3.5-5.2) Globulin 3.3 g/dL Albumin/Globulin Ratio 0.8 (1.0-2.7) Urine Color Charity Urine Appearance Cloudy Urine pH 7 (4.5-8.0) Urine Specific [place] 1.010 (1.005-1.035) Urine Protein 1+ (NEGATIVE) Urine Glucose (UA) Negative (NEGATIVE) Urine Ketones Negative (NEGATIVE) Urine Occult Blood 4+ (NEGATIVE) Urine Nitrite Positive (NEGATIVE) Urine Bilirubin Negative (NEGATIVE) Urine Ictotest Negative Urine Urobilinogen Normal MG/DL (0.0-1.0) Urine Leukocyte Esterase 3+ (NEGATIVE) Urine RBC 5-10 /HPF (0 - 2) Urine WBC 20-30 /HPF (0 - 2) Urine Squamous Epithelial Cells Moderate /LPF (NONE/OCC) Urine Amorphous Sediment Moderate /LPF (NONE) Urine Bacteria Many /HPF (NONE) (MARKLE CHEN.Dangelo) Rhythm Strip Diag. Results EP Interpretation: yes Rhythm: NSR, no PVC's, no ectopy ([place]) EP Interpretation: yes Rate: 115 Rhythm: no PVC's, no ectopy, other - Sinus tach (MARKEL CHEN.Dangelo) Chest X-Ray Diagnostic Results Chest X-Ray Ordered: Yes # of Views/Limited/Complete: 1 View Interpretation: no consolidation, no effusion, no pneumothorax Indication: Shortness of Breath Impression: Other - cardiomegaly Date Electronically Signed: Apr 27, 2017 Time Electronically Signed: 07:25 ([place]) Chest X-Ray Ordered: Yes # of Views/Limited/Complete: 1 View Interpretation: no effusion, no pneumothorax, other - Questionable right upper lobe atelectasis versus other, bilateral lower lobe atelectasis versus effusion Indication: Shortness of Breath Impression: Other - Nonspecific findings, possible pneumonia versus effusion Date Electronically Signed: Apr 21, 2017 Time Electronically Signed: 22:[address] Chen ([email or web address]) CT/MRI/US Diagnostic Results CT/MRI/US Diagnostic Results : Impression CT abdomen pelvis: refer to report evidence of diverticulitis (MARKEL CHEN.Dangelo) Last Vital Signs Date Time Temp Pulse Resp B/P Pulse Ox O2 Delivery O2 Flow Rate FiO2 04/21/17 18:39 121 20 96 Nasal Cannula 2.0 28 04/21/17 17:56 93/63 Status: unchanged ([place]) Status: improved (MARKEL CHEN.Dangelo) Disposition: ADMITTED INPATIENT Condition: Critical Scripts Lactobacillus Rhamnosus Gg* (CULTURELLE*) 1 Each Capsule 1 TAB ORAL THREE TIMES A DAY for 10 Days, #30 CAP Prov: PAWAN SNOW 04/25/17 Trimethoprim/Sulfamethoxazole (Bactrim Ds Tablet) 1 Each Tablet 1 EA ORAL TWICE A DAY for 7 Days, #14 TAB Prov: PAWAN SNOW 04/25/17 [place] Apr 21, 2017 18:43 MARKEL CHEN D.O. Apr 21, 2017 22:31
[2017-04-21 18:53] LABS: MEAN CORPUSCULAR HEMOGLOBIN 29.1 PG (27.0-31.0); MEAN CORPUSCULAR HGB CONC 33.3 G/DL (32.0-36.0); MEAN CORPUSCULAR VOLUME 87 FL (80-99); MEAN PLATELET VOLUME 4.5 FL (6.5-10.1); PLATELET COUNT 388 K/UL (150-450); RED BLOOD COUNT 3.75 M/UL (4.20-5.40); RED CELL DISTRIBUTION WIDTH 14.6 % (11.6-14.8)
[2017-04-21 19:03] LABS: PROTHROMBIN TIME 10.5 SEC (9.30-11.50)
[2017-04-21 19:11] LABS: ALANINE AMINOTRANSFERASE 19 U/L (3-33); ALBUMIN/GLOBULIN RATIO 0.8 (1.0-2.7); ANION GAP 17 (5-15); ASPARTATE AMINO TRANSFERASE 14 U/L (5-40); CARBON DIOXIDE 28 mEQ/L (20-30); CHLORIDE 91 mEQ/L (98-107); CREATININE 1.2 mg/dL (0.5-0.9); HEMOLYSIS 5; POTASSIUM 4.7 mEQ/L (3.4-4.9); SODIUM 136 mEQ/L (135-145); TOTAL PROTEIN 6.2 g/dL (6.6-8.7); TROPONIN I < 0.30 ng/mL (<=0.30)
[2017-04-21 19:22] LABS: CKMB 2.6 ng/mL (< 3.8)
[2017-04-21] MEDS ORDERED: Unasyn 3gm Inj ONE (19:28)
[2017-04-21] MEDS ORDERED: Ampicillin/Sulbactam Sod 3 GM in NS 110 ML IVPB ONE (19:30)
[2017-04-21] MEDS: D5 1/2NS 1,000 ML IV SCH (20:02)
[2017-04-21] MEDS ORDERED: Norco 5mg/325mg tab ORAL ONE (20:30)
[2017-04-21 20:50] LABS: ANISOCYTOSIS 1+; BAND NEUTROPHILS % (MANUAL) 3 % (0-8); BASOPHILS % (MANUAL) 0 % (0-2); EOSINOPHILS % (MANUAL) 0 % (0-3); LYMPHOCYTES % (MANUAL) 9 % (20-45); NEUTROPHILS % (MANUAL) 82 % (45-75); PLATELET ESTIMATE ADEQUATE; PLATELET MORPHOLOGY NORMAL; TOTAL CELLS COUNTED 100
[2017-04-21] MEDS ORDERED: metroNIDAZOLE 500mg 100 ML IVPB ONE (21:00)
[2017-04-21 21:26] LABS: APPEARANCE,URINE CLOUDY; KETONES,URINE NEGATIVE (NEGATIVE); LEUKOCYTE ESTERASE ,URINE 3+ (NEGATIVE); NITRITE,URINE POSITIVE (NEGATIVE); PH,URINE 7 (4.5-8.0); PROTEIN,URINE 1+ (NEGATIVE); UROBILINOGEN,URINE NORMAL MG/DL (0.0-1.0)
[2017-04-21 21:33] LABS: AMORPHOUS SEDIMENT,UR MODERATE /LPF; BACTERIA,URINE MANY /HPF; ICTOTEST NEGATIVE; SQUAMOUS EPITHELIAL CELL,UR MODERATE /LPF (NONE/OCC); WBC,URINE 20-30 /HPF (0 - 2)
[2017-04-22] VITALS (24 sets, daily range): BP systolic 98–130; BP diastolic 47–89
[2017-04-22] MEDS ORDERED: Zosyn 3.375gm inj ONE (01:37)
[2017-04-22] MEDS: Zoysn 3.37gm in D5W 110ml IVPB SCH ×3 (01:50→17:26)
[2017-04-22] MEDS: metroNIDAZOLE 500mg 100 ML IVPB SCH ×3 (05:12→20:37)
[2017-04-22] MEDS ORDERED: Heparin 5000 units/ml inj SUBQ SCH (09:00)
[2017-04-22] MEDS: HYDROmorphone 1mg/ml Carpuject IVP PRN ×3 (09:16→19:55)
[2017-04-22] MEDS: Pantoprazole Inj IVPB SCH ×2 (09:18→20:37)
--- NOTE | 2017-04-22 09:42 | History & Physical ---
History and Physical History & Physicial # [id number] PAWAN AZAR Apr 22, 2017 09:42
[2017-04-22 10:03] LABS: BASOPHILS % (AUTO) 0.6 % (0.0-2.0); EOSINOPHILS % (AUTO) 0.2 % (0.0-3.0); LYMPHOCYTES % (AUTO) 12.9 % (20.0-45.0); MEAN CORPUSCULAR HEMOGLOBIN 27.9 PG (27.0-31.0); MEAN CORPUSCULAR HGB CONC 32.3 G/DL (32.0-36.0); MEAN CORPUSCULAR VOLUME 86 FL (80-99); MEAN PLATELET VOLUME 4.5 FL (6.5-10.1); MONOCYTES % (AUTO) 5.1 % (1.0-10.0); NEUTROPHILS % (AUTO) 81.2 % (45.0-75.0); PLATELET COUNT 385 K/UL (150-450); RED BLOOD COUNT 3.63 M/UL (4.20-5.40); RED CELL DISTRIBUTION WIDTH 14.6 % (11.6-14.8); WHITE BLOOD COUNT 17.1 K/UL (4.8-10.8)
[2017-04-22 10:37] LABS: TROPONIN I < 0.30 ng/mL (<=0.30)
[2017-04-22 10:57] LABS: CHLORIDE 102 mEQ/L (98-107); POTASSIUM 4.2 mEQ/L (3.4-4.9); SODIUM 142 mEQ/L (135-145)
[2017-04-22 10:58] LABS: ALANINE AMINOTRANSFERASE 15 U/L (3-33); ANION GAP 13 (5-15); ASPARTATE AMINO TRANSFERASE 12 U/L (5-40); CALCIUM 8.5 mg/dL (8.6-10.2); CARBON DIOXIDE 27 mEQ/L (20-30); CREATININE 0.9 mg/dL (0.5-0.9); FERRITIN 322 ng/mL (13-150); MAGNESIUM 1.2 MG/DL (1.5-2.4); PHOSPHORUS 3.5 MG/DL (2.5-4.9); TOTAL PROTEIN 5.7 g/dL (6.6-8.7); URIC ACID 7.8 MG/DL (2.6-7.2)
[2017-04-22 10:59] LABS: ALBUMIN/GLOBULIN RATIO 0.8 (1.0-2.7)
[2017-04-22 11:03] LABS: IRON 47 ug/dL (37-145); TOTAL IRON BINDING CAPACITY 183 ug/dL (250-400)
--- NOTE | 2017-04-22 11:04 | Pulmonolgy Critical Care Note ---
Critical Care - Asmt/Plan Problems: (1) Respiratory failure (2) Severe sepsis (3) Hypotension (4) GI bleed (5) History of cerebrovascular accident (6) COPD (chronic obstructive pulmonary disease) Respiratory: monitor respiratory rate, adjust FIO2 Cardiac: continue to monitor HR/BP Renal: F/U I&O, keep IV fluid Infectious Disease: check cultures, continue antibiotics Gastrointestinal: continue feedings/current rate, hold feedings Endocrine: monitor blood sugar, continue sliding scale insulin Hematologic: monitor H/H, transfuse if hgb<8.5 Neurologic: PRN Ativan, keep patient comfortable Prophylaxis: Protonix Notes 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: 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 division officer Discussed with: nurses, consultants, renal case managerclinical manager home care - Objective Last 24 Hour Vital Signs Date Time Temp Pulse Resp B/P Pulse Ox O2 Delivery O2 Flow Rate FiO2 04/22/17 10:00 104 17 115/65 98 Room Air 3.0 04/22/17 09:46 97.9 04/22/17 09:00 105 17 123/64 96 Room Air 3.0 04/22/17 08:00 97.9 103 18 108/74 97 Room Air 3.0 04/22/17 08:00 102 04/22/17 07:00 102 17 105/63 97 Room Air 3.0 04/22/17 06:00 103 17 107/66 97 Room Air 3.0 04/22/17 05:00 102 18 112/64 97 Room Air 3.0 04/22/17 04:00 97.7 103 18 116/63 94 Room Air 3.0 04/22/17 04:00 103 04/22/17 03:00 105 16 101/66 97 Room Air 2.0 04/22/17 02:00 106 17 111/61 95 Room Air 2.0 04/22/17 01:00 108 17 130/72 94 Room Air 2.0 04/22/17 00:00 106 16 113/67 95 Room Air 2.0 04/22/17 00:00 106 04/21/17 23:30 98.7 120 25 104/64 95 Room Air 2.0 28 04/21/17 22:50 112 17 110/70 96 Room Air 04/21/17 22:50 97.0 120 17 110/70 96 Room Air 2.0 28 04/21/17 22:17 97.0 120 17 106/60 96 Room Air 2.0 28 04/21/17 21:45 97.0 124 17 107/80 96 Room Air 2.0 28 04/21/17 21:31 97.0 04/21/17 21:15 97.0 126 20 106/60 95 Room Air 2.0 28 04/21/17 20:45 97.0 117 20 110/80 95 Room Air 2.0 28 04/21/17 20:15 97.0 126 20 121/81 95 Room Air 04/21/17 19:45 97.0 121 20 96/93 96 Room Air 04/21/17 19:15 97.0 111 20 93/63 96 Nasal Cannula 2.0 28 04/21/17 18:39 121 20 96 Nasal Cannula 2.0 28 04/21/17 18:30 118 16 Nasal Cannula 2.0 28 04/21/17 18:30 118 20 95 Nasal Cannula 2.0 28 04/21/17 17:56 120 32 93/63 Status: awake Condition: critical, improving Lungs: clear, rales, rhonchi Heart: HR/BP stable Abdomen: soft, non-tender, feeding tube Extremities: edema Decubiti: location Critical Care - Subjective ROS Limited/Unobtainable: No ICU Day: 2 Interval Events: 87-year-old female with hx of CVA, HTN, COPD, custodial resident presented after increased difficulty breathing, associated increased cough. She was hypotensive and tachycardic in ER and transferred to ICU for further work up. Currently, she is awake and stable and wants to ge out of ICU. Condition: critical FI02: 28 Sputum Amount: None I&O: Intake and Output 04/21/17 04/22/17 19:00 07:00 Intake Total 0 ml 650 ml Output Total 970 ml Balance 0 ml -320 ml Intake Oral 0 ml 0 ml IV Total 650 ml Output Urine Total 970 ml CXR: congestive changes. Labs: Laboratory Tests Test 04/21/17 18:27 04/21/17 20:11 04/22/17 08:50 White Blood Count 24.0 K/UL (4.8-10.8) *H 17.1 K/UL (4.8-10.8) H Red Blood Count 3.75 M/UL (4.20-5.40) L 3.63 M/UL (4.20-5.40) L Hemoglobin 10.9 G/DL (12.0-16.0) L 10.1 G/DL (12.0-16.0) L Hematocrit 32.7 % (37.0-47.0) L 31.3 % (37.0-47.0) L Mean Corpuscular Volume 87 FL (80-99) 86 FL (80-99) Mean Corpuscular Hemoglobin 29.1 PG (27.0-31.0) 27.9 PG (27.0-31.0) Mean Corpuscular Hemoglobin Concent 33.3 G/DL (32.0-36.0) 32.3 G/DL (32.0-36.0) Red Cell Distribution Width 14.6 % (11.6-14.8) 14.6 % (11.6-14.8) Platelet Count 388 K/UL (150-450) 385 K/UL (150-450) Mean Platelet Volume 4.5 FL (6.5-10.1) L 4.5 FL (6.5-10.1) L Neutrophils (%) (Auto) % (45.0-75.0) 81.2 % (45.0-75.0) H Lymphocytes (%) (Auto) % (20.0-45.0) 12.9 % (20.0-45.0) L Monocytes (%) (Auto) % (1.0-10.0) 5.1 % (1.0-10.0) Eosinophils (%) (Auto) % (0.0-3.0) 0.2 % (0.0-3.0) Basophils (%) (Auto) % (0.0-2.0) 0.6 % (0.0-2.0) Differential Total Cells Counted 100 Neutrophils % (Manual) 82 % (45-75) H Lymphocytes % (Manual) 9 % (20-45) L Monocytes % (Manual) 6 % (1-10) Eosinophils % (Manual) 0 % (0-3) Basophils % (Manual) 0 % (0-2) Band Neutrophils 3 % (0-8) Platelet Estimate Adequate Platelet Morphology Normal Anisocytosis 1+ Prothrombin Time 10.5 SEC (9.30-11.50) Prothromb Time International Ratio 1.0 (0.9-1.1) Activated Partial Thromboplast Time 25 SEC (23-33) Sodium Level 136 mEQ/L (135-145) 142 mEQ/L (135-145) Potassium Level 4.7 mEQ/L (3.4-4.9) 4.2 mEQ/L (3.4-4.9) Chloride Level 91 mEQ/L (98-107) L 102 mEQ/L (98-107) Carbon Dioxide Level 28 mEQ/L (20-30) 27 mEQ/L (20-30) Anion Gap 17 (5-15) H 13 (5-15) Blood Urea Nitrogen 40 mg/dL (7-23) H 27 mg/dL (7-23) H Creatinine 1.2 mg/dL (0.5-0.9) H 0.9 mg/dL (0.5-0.9) Estimat Glomerular Filtration Rate mL/min (>60) mL/min (>60) Glucose Level 117 mg/dL (74-106) H 149 mg/dL (74-106) H Lactic Acid Level 1.80 mmol/L (0.66-2.22) Calcium Level 9.0 mg/dL (8.6-10.2) 8.5 mg/dL (8.6-10.2) L Total Bilirubin 0.3 mg/dL (0.0-1.2) 0.3 mg/dL (0.0-1.2) Aspartate Amino Transf (AST/SGOT) 14 U/L (5-40) 12 U/L (5-40) Alanine Aminotransferase (ALT/SGPT) 19 U/L (3-33) 15 U/L (3-33) Alkaline Phosphatase 84 U/L (35-104) 69 U/L (35-104) Total Creatine Kinase 20 U/L (26-140) L Pending Creatine Kinase MB 2.6 ng/mL (< 3.8) Creatine Kinase MB Relative Index 13.0 Troponin I < 0.30 ng/mL (<=0.30) < 0.30 ng/mL (<=0.30) Total Protein 6.2 g/dL (6.6-8.7) L 5.7 g/dL (6.6-8.7) L Albumin 2.9 g/dL (3.5-5.2) L 2.6 g/dL (3.5-5.2) L Globulin 3.3 g/dL 3.1 g/dL Albumin/Globulin Ratio 0.8 (1.0-2.7) L 0.8 (1.0-2.7) L Urine Color Charity Urine Appearance Cloudy Urine pH 7 (4.5-8.0) Urine Specific [place] 1.010 (1.005-1.035) Urine Protein 1+ (NEGATIVE) H Urine Glucose (UA) Negative (NEGATIVE) Urine Ketones Negative (NEGATIVE) Urine Occult Blood 4+ (NEGATIVE) H Urine Nitrite Positive (NEGATIVE) H Urine Bilirubin Negative (NEGATIVE) Urine Ictotest Negative Urine Urobilinogen Normal MG/DL (0.0-1.0) Urine Leukocyte Esterase 3+ (NEGATIVE) H Urine RBC 5-10 /HPF (0 - 2) H Urine WBC 20-30 /HPF (0 - 2) H Urine Squamous Epithelial Cells Moderate /LPF (NONE/OCC) H Urine Amorphous Sediment Moderate /LPF (NONE) H Urine Bacteria Many /HPF (NONE) H Uric Acid 7.8 MG/DL (2.6-7.2) H Phosphorus Level 3.5 MG/DL (2.5-4.9) Magnesium Level 1.2 MG/DL (1.5-2.4) L Iron Level Pending Unsaturated Iron Binding Pending Ferritin 322 ng/mL (13-150) H Gamma Glutamyl Transpeptidase Pending Pro-B-Type Natriuretic Peptide 336 pg/mL (0-450) Vitamin B12 Level 925 pg/mL (211-946) Folate Pending SUSIE ROCHA Apr 22, 2017 11:04
[2017-04-22] MEDS ORDERED: D5 1/2NS 1000ml IV ONE (11:07)
[2017-04-22] MEDS ORDERED: Tubing IV Secondary IV ONE (11:07)
[2017-04-22] MEDS ORDERED: NS 275ml ONE (11:08)
--- NOTE | 2017-04-22 11:55 | GI Initial Consult Note ---
Renae Cartwright N.PSrikanth 04/22/17 1155: History of Present Illness General Date patient seen: Apr 22, 2017 Time patient seen: 11:55 Reason for Hospitalization: Gastrointestinal Bleed Referring physician: PAWAN SNOW Reason for Consultation: DIVERTICULITIS Present Illness HPI Patient is a 87-year-old female presented after increased difficulty breathing. Patient gradual onset of symptoms. Patient had associated increased cough. Patient was noted to have a prior history of COPD and uses oxygen at skilled nursing. The patient's followed by Dr. Snow and [facility]. The patient was noted to have a prior episodes of GI bleeding. She reportedly taking oral anticoagulation. The patient had been having increased shortness of breath GI CONSULT: HPI as noted above. GI consulted for diverticulitis based on APCT on ED. Pt seen on floor, awake A&Ox3 NAD with daughter by bedside. Initial c/o abdominal pain in which she denies at this time. Mild abdominal tenderness with palpation with noted hernia with hx of multiple abdominal surgeries. Denies N/V/D. She presents today with diverticulitis on APCT, leukocytosis, anemia, and hypoalbuminemia. Last colonoscopy approximately 2 years ago with no polyps according to patient daughter. Home Meds Active Scripts Prednisone* (PREDNISONE*) 20 Mg Tablet, 30 MG ORAL DAILY for 10 Days, TAB Taper dose 5 mg daily Prov:PAWAN SNOW 01/28/17 Ipratropium/Albuterol Sulfate (DuoNeb 0.5-3(2.5)mg/3ml) 3 Ml Ampul.neb, 3 ML HHN EVERY 4 HOURS Y for 10 Days, EA Prov:PAWAN SNOW 10/08/16 Prednisone* (PREDNISONE*) 50 Mg Tablet, 25 MG ORAL DAILY for 7 Days, TAB Prov:PAWAN SNOW 10/08/16 Pantoprazole* (PROTONIX*) 40 Mg Tablet.dr, 40 MG ORAL EVERY 12 HOURS for 30 Days , TAB Prov:PAWAN SNOW 02/21/16 Docusate Sodium* (COLACE*) 100 Mg Capsule, 100 MG ORAL THREE TIMES A DAY for 30 Days, CAP Prov:PAWAN SNOW 02/21/16 Acetaminophen* (ACETAMINOPHEN 325MG TABLET*) 325 Mg Tablet, 650 MG ORAL Q4H Y for T>100.5 for 30 Days, TAB Prov:PAWAN SNOW 02/21/16 Reported Medications Tramadol Hcl* (ULTRAM*) 50 Mg Tablet, 50 MG ORAL Q6H Y for For Pain, #30 TAB 0 Refills 01/24/17 Cholecalciferol (Vitamin D3)* (VITAMIN D*) 1,000 Unit Tablet, 1000 UNIT ORAL DAILY, #30 TAB 10/03/16 Potassium Chloride* (K-DUR*) 20 Meq Tab.er.prt, 20 MEQ ORAL DAILY, #7 TAB 0 Refills 10/03/16 Oxybutynin (OXYTROL) 1 Each Patch.tdsw, 1 EACH TD DAILY, PATCH 10/03/16 Mirabegron (MYRBETRIQ) 50 Mg Tab.er.24h, 50 MG PO DAILY, TAB 10/03/16 Multivitamin With Minerals (MULTIVITAMINS WITH MINERALS*) 1 Each Tablet, 1 TAB ORAL DAILY, TAB 10/03/16 Furosemide* (LASIX*) 40 Mg Tablet, 40 MG ORAL DAILY, TAB 10/03/16 Calcium Carbonate/Vitamin D3 (CALCIUM 600 + VIT D 200 TABLET) 1 Each Tablet, 1 EACH PO DAILY, TAB 10/03/16 Hydrocodone Bit/Acetaminophen 5-325* (NORCO 5-325 TABLET*) 1 Each Tablet, 1 TAB ORAL Q8HR Y for For Pain, TAB 02/17/16 Atorvastatin Calcium* (ATORVASTATIN CALCIUM*) 40 Mg Tablet, 40 MG ORAL BEDTIME, TAB 02/17/16 Lisinopril* (LISINOPRIL*) 10 Mg Tablet, 10 MG ORAL DAILY, TAB 02/17/16 Clopidogrel* (CLOPIDOGREL*) 75 Mg Tablet, 75 MG ORAL DAILY, TAB 02/17/16 Med list reviewed/reconciled: Yes Allergies: Coded Allergies: No Known Allergies (Unverified , 02/17/16) Patient History Limited by: medical condition History Provided By: Patient, Family Member, Medical Record PMH Narrative Hx Hypertension: Yes Hx COPD: Yes Hx Cancer: No Hx Gastrointestinal Problems: Yes Hx Neurological Problems: Yes - Spinal stenosis Hx Cerebrovascular Accident: Yes Past Surgical History: other - multiple abdominal surgeries for hernias Social History: Denies: alcohol use, drug use, other, smoking Review of Systems All Other Systems: negative except mentioned in HPI Physical Exam Vital Signs Date Time Temp Pulse Resp B/P Pulse Ox O2 Delivery O2 Flow Rate FiO2 04/21/17 17:56 120 32 93/63 04/21/17 18:30 95 Nasal Cannula 2.0 28 04/21/17 19:15 97.0 Sp02 EP Interpretation: reviewed Labs Laboratory Tests Test 04/21/17 18:27 04/21/17 20:11 04/22/17 08:50 White Blood Count 24.0 K/UL (4.8-10.8) *H 17.1 K/UL (4.8-10.8) H Red Blood Count 3.75 M/UL (4.20-5.40) L 3.63 M/UL (4.20-5.40) L Hemoglobin 10.9 G/DL (12.0-16.0) L 10.1 G/DL (12.0-16.0) L Hematocrit 32.7 % (37.0-47.0) L 31.3 % (37.0-47.0) L Mean Corpuscular Volume 87 FL (80-99) 86 FL (80-99) Mean Corpuscular Hemoglobin 29.1 PG (27.0-31.0) 27.9 PG (27.0-31.0) Mean Corpuscular Hemoglobin Concent 33.3 G/DL (32.0-36.0) 32.3 G/DL (32.0-36.0) Red Cell Distribution Width 14.6 % (11.6-14.8) 14.6 % (11.6-14.8) Platelet Count 388 K/UL (150-450) 385 K/UL (150-450) Mean Platelet Volume 4.5 FL (6.5-10.1) L 4.5 FL (6.5-10.1) L Neutrophils (%) (Auto) % (45.0-75.0) 81.2 % (45.0-75.0) H Lymphocytes (%) (Auto) % (20.0-45.0) 12.9 % (20.0-45.0) L Monocytes (%) (Auto) % (1.0-10.0) 5.1 % (1.0-10.0) Eosinophils (%) (Auto) % (0.0-3.0) 0.2 % (0.0-3.0) Basophils (%) (Auto) % (0.0-2.0) 0.6 % (0.0-2.0) Differential Total Cells Counted 100 Neutrophils % (Manual) 82 % (45-75) H Lymphocytes % (Manual) 9 % (20-45) L Monocytes % (Manual) 6 % (1-10) Eosinophils % (Manual) 0 % (0-3) Basophils % (Manual) 0 % (0-2) Band Neutrophils 3 % (0-8) Platelet Estimate Adequate Platelet Morphology Normal Anisocytosis 1+ Prothrombin Time 10.5 SEC (9.30-11.50) Prothromb Time International Ratio 1.0 (0.9-1.1) Activated Partial Thromboplast Time 25 SEC (23-33) Sodium Level 136 mEQ/L (135-145) 142 mEQ/L (135-145) Potassium Level 4.7 mEQ/L (3.4-4.9) 4.2 mEQ/L (3.4-4.9) Chloride Level 91 mEQ/L (98-107) L 102 mEQ/L (98-107) Carbon Dioxide Level 28 mEQ/L (20-30) 27 mEQ/L (20-30) Anion Gap 17 (5-15) H 13 (5-15) Blood Urea Nitrogen 40 mg/dL (7-23) H 27 mg/dL (7-23) H Creatinine 1.2 mg/dL (0.5-0.9) H 0.9 mg/dL (0.5-0.9) Estimat Glomerular Filtration Rate mL/min (>60) mL/min (>60) Glucose Level 117 mg/dL (74-106) H 149 mg/dL (74-106) H Lactic Acid Level 1.80 mmol/L (0.66-2.22) Calcium Level 9.0 mg/dL (8.6-10.2) 8.5 mg/dL (8.6-10.2) L Total Bilirubin 0.3 mg/dL (0.0-1.2) 0.3 mg/dL (0.0-1.2) Aspartate Amino Transf (AST/SGOT) 14 U/L (5-40) 12 U/L (5-40) Alanine Aminotransferase (ALT/SGPT) 19 U/L (3-33) 15 U/L (3-33) Alkaline Phosphatase 84 U/L (35-104) 69 U/L (35-104) Total Creatine Kinase 20 U/L (26-140) L 16 U/L (26-140) L Creatine Kinase MB 2.6 ng/mL (< 3.8) Creatine Kinase MB Relative Index 13.0 Troponin I < 0.30 ng/mL (<=0.30) < 0.30 ng/mL (<=0.30) Total Protein 6.2 g/dL (6.6-8.7) L 5.7 g/dL (6.6-8.7) L Albumin 2.9 g/dL (3.5-5.2) L 2.6 g/dL (3.5-5.2) L Globulin 3.3 g/dL 3.1 g/dL Albumin/Globulin Ratio 0.8 (1.0-2.7) L 0.8 (1.0-2.7) L Urine Color Charity Urine Appearance Cloudy Urine pH 7 (4.5-8.0) Urine Specific [place] 1.010 (1.005-1.035) Urine Protein 1+ (NEGATIVE) H Urine Glucose (UA) Negative (NEGATIVE) Urine Ketones Negative (NEGATIVE) Urine Occult Blood 4+ (NEGATIVE) H Urine Nitrite Positive (NEGATIVE) H Urine Bilirubin Negative (NEGATIVE) Urine Ictotest Negative Urine Urobilinogen Normal MG/DL (0.0-1.0) Urine Leukocyte Esterase 3+ (NEGATIVE) H Urine RBC 5-10 /HPF (0 - 2) H Urine WBC 20-30 /HPF (0 - 2) H Urine Squamous Epithelial Cells Moderate /LPF (NONE/OCC) H Urine Amorphous Sediment Moderate /LPF (NONE) H Urine Bacteria Many /HPF (NONE) H Uric Acid 7.8 MG/DL (2.6-7.2) H Phosphorus Level 3.5 MG/DL (2.5-4.9) Magnesium Level 1.2 MG/DL (1.5-2.4) L Iron Level 47 ug/dL (37-145) Total Iron Binding Capacity 183 ug/dL (250-400) L Percent Iron Saturation 26 % (15-50) Unsaturated Iron Binding 136 ug/dL (112-346) Ferritin 322 ng/mL (13-150) H Gamma Glutamyl Transpeptidase 18 U/L (5-36) Pro-B-Type Natriuretic Peptide 336 pg/mL (0-450) Vitamin B12 Level 925 pg/mL (211-946) Folate Pending General Appearance: well appearing, no apparent distress Head: normocephalic EENT: normal ENT inspection Neck: full range of motion, supple Respiratory: normal breath sounds, no respiratory distress, other - 2LNC Cardiovascular: normal rate Gastrointestinal: other - hernia Rectal: deferred Genitourinary: no CVA tenderness Musculoskeletal: back normal Neurologic: oriented x3, responsive Psychiatric: normal inspection Skin: normal inspection, normal color, no rash, warm/dry Lymphatic: normal inspection, no adenopathy Current Medications Current Medications Medications (Trade) Dose Ordered Sig/Meera Route PRN Reason Start Time Stop Time Status Last Admin Dose Admin Atorvastatin Calcium (Lipitor) 40 mg BEDTIME ORAL 04/22/17 21:00 05/22/17 20:59 Dextrose/Sodium Chloride 1,000 ml @ 50 mls/hr Q20H IV 04/21/17 22:00 05/21/17 21:59 04/21/17 20:02 Hydromorphone HCl (Dilaudid) 0.5 mg Q4H PRN IVP For Pain 04/21/17 22:00 04/28/17 21:59 04/22/17 09:16 Metronidazole 100 ml @ 100 mls/hr Q8H IVPB 04/22/17 05:00 04/29/17 04:59 04/22/17 05:12 Pantoprazole 40 mg 40 mg EVERY 12 HOURS IVPB 04/22/17 09:00 05/22/17 08:59 04/22/17 09:18 Piperacillin Sod/ Tazobactam Sod/ Dextrose (Zosyn/D5W) 110 ml @ 27.5 mls/hr Q8H IVPB 04/22/17 01:30 04/29/17 01:29 04/22/17 09:17 GI: Plan Problems: (1) Diverticulitis (2) GI bleed (3) Anemia (4) Hypoalbuminemia Plan maintain IVF hydration CLD for 1-3 days, adv as tolerated pain mgmt abx >> transition to PO for 10-14 days when discharged ppi repeat imaging if necessary anemia work up OB stool r/o GI bleed pt will require outpatient colonoscopy 8 weeks after discharge date Discussed with Dr. Castle. Thank you for referring this patient, we will follow. STAN CASTLE 04/24/17 1001: History of Present Illness General Reason for Hospitalization: Gastrointestinal Bleed Present Illness Home Meds Active Scripts Prednisone* (PREDNISONE*) 20 Mg Tablet, 30 MG ORAL DAILY for 10 Days, TAB Taper dose 5 mg daily Prov:PAWAN SNOW 01/28/17 Ipratropium/Albuterol Sulfate (DuoNeb 0.5-3(2.5)mg/3ml) 3 Ml Ampul.neb, 3 ML HHN EVERY 4 HOURS Y for 10 Days, EA Prov:PAWAN SNOW 10/08/16 Prednisone* (PREDNISONE*) 50 Mg Tablet, 25 MG ORAL DAILY for 7 Days, TAB Prov:PAWAN SNOW 10/08/16 Pantoprazole* (PROTONIX*) 40 Mg Tablet.dr, 40 MG ORAL EVERY 12 HOURS for 30 Days , TAB Prov:PAWAN SNOW 02/21/16 Docusate Sodium* (COLACE*) 100 Mg Capsule, 100 MG ORAL THREE TIMES A DAY for 30 Days, CAP Prov:PAWAN SNOW 02/21/16 Acetaminophen* (ACETAMINOPHEN 325MG TABLET*) 325 Mg Tablet, 650 MG ORAL Q4H Y for T>100.5 for 30 Days, TAB Prov:PAWAN SNOW 02/21/16 Reported Medications Tramadol Hcl* (ULTRAM*) 50 Mg Tablet, 50 MG ORAL Q6H Y for For Pain, #30 TAB 0 Refills 01/24/17 Cholecalciferol (Vitamin D3)* (VITAMIN D*) 1,000 Unit Tablet, 1000 UNIT ORAL DAILY, #30 TAB 10/03/16 Potassium Chloride* (K-DUR*) 20 Meq Tab.er.prt, 20 MEQ ORAL DAILY, #7 TAB 0 Refills 10/03/16 Oxybutynin (OXYTROL) 1 Each Patch.tdsw, 1 EACH TD DAILY, PATCH 10/03/16 Mirabegron (MYRBETRIQ) 50 Mg Tab.er.24h, 50 MG PO DAILY, TAB 10/03/16 Multivitamin With Minerals (MULTIVITAMINS WITH MINERALS*) 1 Each Tablet, 1 TAB ORAL DAILY, TAB 10/03/16 Furosemide* (LASIX*) 40 Mg Tablet, 40 MG ORAL DAILY, TAB 10/03/16 Calcium Carbonate/Vitamin D3 (CALCIUM 600 + VIT D 200 TABLET) 1 Each Tablet, 1 EACH PO DAILY, TAB 10/03/16 Hydrocodone Bit/Acetaminophen 5-325* (NORCO 5-325 TABLET*) 1 Each Tablet, 1 TAB ORAL Q8HR Y for For Pain, TAB 02/17/16 Atorvastatin Calcium* (ATORVASTATIN CALCIUM*) 40 Mg Tablet, 40 MG ORAL BEDTIME, TAB 02/17/16 Lisinopril* (LISINOPRIL*) 10 Mg Tablet, 10 MG ORAL DAILY, TAB 02/17/16 Clopidogrel* (CLOPIDOGREL*) 75 Mg Tablet, 75 MG ORAL DAILY, TAB 02/17/16 Allergies: Coded Allergies: No Known Allergies (Unverified , 02/17/16) GI: Plan Plan The patient was seen and examined at bedside and all new and available data was reviewed in the patients chart. I agree with the above findings, impression and plan. (Patient seen earlier today. Signature stamp does not reflect patient encounter time.). -[facility] Jairo Blackman Apr 22, 2017 11:55 STAN CASTLE Apr 24, 2017 10:01
[2017-04-22] MEDS ORDERED: Magnesium Sulfate 4,000 MG in NS 275 ML IV ONE (14:00)
[2017-04-22] MEDS: D5 1/2NS 1,000 ML IV SCH (17:26)
[2017-04-22] MEDS ORDERED: Hydromorphone 0.5mg/0.5ml inj IVP PRN (20:30)
--- NOTE | 2017-04-22 20:45 | History and Physical Report ---
DATE OF ADMISSION: 04/21/2017 HISTORY OF PRESENT ILLNESS: The patient is an 87-year-old female, who is a resident of [facility]. I was notified yesterday that the patient had three times watery diarrhea and the same number of time watery diarrhea the day before. The patient was summoned to come to emergency room here at [facility] where the initial workup in the emergency room showed a white blood cell count of 24,000 and also a CAT scan, which revealed diverticulitis. The patient also was somewhat hypotensive and admitted to ICU for further management. PAST MEDICAL HISTORY: Includes diverticulosis, chronic arthritis, history of pneumonia, previous respiratory failure, previous GI bleed, dehydration, hypotension, also hypoxic respiratory failure in the past, also exacerbation of her underlying chronic obstructive pulmonary disease in the past, and urinary tract infection. MEDICATIONS: Medications that the patient is supposed to be taking includes [place], breathing treatment, Lipitor, Plavix, Colace, Lasix, Zestril, Zofran, Protonix, and the patient was on tapering dose of prednisone in the past. PHYSICAL EXAMINATION: GENERAL: The patient was seen in ICU with the presence of the nurse. An elderly frail woman. VITAL SIGNS: Temperature 97.9 degrees, pulse rate 105, respiratory rate 18, blood pressure 124/64, and pulse oximetry is 96%. HEENT: Head is normocephalic. Face is pale. NECK: Neck is full. LUNGS: Poor inspiratory effort. Decreased breath sound over the bases. HEART: Tachycardic, mainly regular with occasional irregular beats. ABDOMEN: Obese with three different hernias and scars of the previous surgery present. Mild generalized tenderness. EXTREMITIES: Two surgical scars over the knee. No edema. LABORATORY DATA: White blood cells 24,000, hemoglobin 10.9, BUN 40, and creatinine 1.2. The albumin is 2.9. Urine shows 30 white blood cells, 3+ leukocyte esterase, and coags are negative. The CAT scan shows colonic diverticulosis with wall thickening and mild stranding of the distal descending and sigmoid colon suggestive of diverticulitis, large ventral right lateral hernia, abdominal aortic aneurysm, hepatomegaly, left renal calculi, and kyphoplasty L1. IMPRESSION: 1. Diverticulosis. 2. Urinary tract infection. 3. History of chronic obstructive pulmonary disease. 4. Hypotension on presentation. 5. History of congestive heart failure. 6. History of gastrointestinal bleed. PLAN: At this point, pulmonary support, NPO, and intravenous Flagyl and Zosyn. ID and GI evaluation and monitor the renal parameters and CBC, Esqueda catheter, and according to how the patient's condition evolves, we will make the proper changes in our future management. Paresh Snow M.D. DR: JASMIN JOB#: [id number] CC:
[2017-04-23] VITALS (17 sets, daily range): BP systolic 102–148; BP diastolic 50–98
[2017-04-23] MEDS: Zoysn 3.37gm in D5W 110ml IVPB SCH ×2 (01:17→09:30)
[2017-04-23] MEDS: metroNIDAZOLE 500mg 100 ML IVPB SCH ×3 (04:47→20:41)
[2017-04-23 05:30] LABS: BASOPHILS % (AUTO) 0.6 % (0.0-2.0); EOSINOPHILS % (AUTO) 1.1 % (0.0-3.0); LYMPHOCYTES % (AUTO) 15.8 % (20.0-45.0); MEAN CORPUSCULAR HEMOGLOBIN 28.2 PG (27.0-31.0); MEAN CORPUSCULAR HGB CONC 32.4 G/DL (32.0-36.0); MEAN CORPUSCULAR VOLUME 87 FL (80-99); MEAN PLATELET VOLUME 4.6 FL (6.5-10.1); MONOCYTES % (AUTO) 7.2 % (1.0-10.0); NEUTROPHILS % (AUTO) 75.3 % (45.0-75.0); PLATELET COUNT 365 K/UL (150-450); RED BLOOD COUNT 3.35 M/UL (4.20-5.40); RED CELL DISTRIBUTION WIDTH 14.8 % (11.6-14.8); WHITE BLOOD COUNT 13.7 K/UL (4.8-10.8)
[2017-04-23 05:55] LABS: ANION GAP 11 (5-15); CALCIUM 8.2 mg/dL (8.6-10.2); CARBON DIOXIDE 26 mEQ/L (20-30); CHLORIDE 102 mEQ/L (98-107); CREATININE 0.6 mg/dL (0.5-0.9); HEMOLYSIS 2; MAGNESIUM 1.9 mg/dL (1.7-2.5); POTASSIUM 4.1 mEQ/L (3.4-4.9); SODIUM 139 mEQ/L (135-145)
[2017-04-23 05:57] LABS: CHOLESTEROL/HDL RATIO 3.2 (3.3-4.4)
--- NOTE | 2017-04-23 08:17 | Cardiology Report ---
APPROVED REPORT EKG Measurement Heart [id number] Sinus tachycardia Left anterior fascicular block Abnormal ECG
[2017-04-23] MEDS: Pantoprazole Inj IVPB SCH (09:30)
--- NOTE | 2017-04-23 10:42 | General Progress Note ---
Assessment/Plan Status: stable Status Narrative WBCs lower Assessment/Plan status: 1. Diverticulosis. 2. Urinary tract infection. 3. History of chronic obstructive pulmonary disease. 4. Hypotension on presentation. 5. History of congestive heart failure. 6. History of gastrointestinal bleed. Plan: Continue antibiotics- advance diet- stop hydration optimize pulm and cardiac status monitor CBC Subjective ROS Limited/Unobtainable: No Constitutional: Reports: malaise, weakness Allergies: Coded Allergies: No Known Allergies (Unverified , 02/17/16) Objective Last 24 Hour Vital Signs Date Time Temp Pulse Resp B/P Pulse Ox O2 Delivery O2 Flow Rate FiO2 04/23/17 10:00 97 16 102/54 97 Nasal Cannula 3.0 04/23/17 09:00 92 14 132/98 97 Nasal Cannula 3.0 04/23/17 08:00 97.9 89 18 111/56 95 Nasal Cannula 3.0 04/23/17 08:00 89 04/23/17 07:00 87 14 116/68 97 Room Air 3.0 04/23/17 06:00 93 14 125/68 97 Room Air 3.0 04/23/17 05:00 90 14 108/60 97 Room Air 3.0 04/23/17 04:00 97.8 92 15 109/59 98 Room Air 3.0 04/23/17 04:00 100 04/23/17 03:00 94 15 106/50 98 Room Air 3.0 04/23/17 02:00 101 15 110/89 98 Room Air 3.0 04/23/17 01:12 97.6 04/23/17 01:00 99 14 112/89 98 Room Air 3.0 04/23/17 00:00 97.6 107 17 118/75 99 Room Air 3.0 04/23/17 00:00 108 04/22/17 23:00 107 16 98/54 99 Room Air 3.0 04/22/17 22:00 101 14 104/77 99 Room Air 3.0 04/22/17 21:00 108 16 108/58 99 Room Air 3.0 04/22/17 20:25 97.5 04/22/17 20:00 97.5 106 17 106/60 97 Room Air 3.0 04/22/17 20:00 106 04/22/17 19:00 107 19 107/57 97 Nasal Cannula 3.0 04/22/17 18:00 110 19 110/59 97 Nasal Cannula 3.0 04/22/17 17:00 108 19 106/59 97 Nasal Cannula 3.0 04/22/17 16:00 104 04/22/17 16:00 98.2 101 20 109/76 98 Nasal Cannula 3.0 04/22/17 15:00 105 19 98/47 97 Nasal Cannula 3.0 04/22/17 14:00 101 19 128/70 98 Nasal Cannula 3.0 04/22/17 13:00 102 20 110/73 98 Nasal Cannula 3.0 04/22/17 12:00 106 04/22/17 12:00 98.0 106 19 126/89 98 Nasal Cannula 3.0 04/22/17 11:00 106 19 114/73 98 Nasal Cannula 3.0 Intake and Output 04/22/17 04/23/17 19:00 07:00 Intake Total 1003.66 ml 965.0 ml Output Total 1230 ml 920 ml Balance -226.34 ml 45.0 ml Intake Oral 50 ml IV Total 1003.66 ml 915.0 ml Output Urine Total 1230 ml 920 ml # Bowel Movements 1 Laboratory Tests 04/23/17 04:20: White Blood Count 13.7H, Red Blood Count 3.35L, Hemoglobin 9.5L, Hematocrit 29.2L, Mean Corpuscular Volume 87, Mean Corpuscular Hemoglobin 28.2, Mean Corpuscular Hemoglobin Concent 32.4, Red Cell Distribution Width 14.8, Platelet Count 365, Mean Platelet Volume 4.6L, Neutrophils (%) (Auto) 75.3H, Lymphocytes (%) (Auto) 15.8L, Monocytes (%) (Auto) 7.2, Eosinophils (%) (Auto) 1.1, Basophils (%) (Auto) 0.6, Sodium Level 139, Potassium Level 4.1, Chloride Level 102, Carbon Dioxide Level 26, Anion Gap 11, Blood Urea Nitrogen 12, Creatinine 0.6, Estimat Glomerular Filtration Rate , Glucose Level 155H, Calcium Level 8.2L , Magnesium Level 1.9, Triglycerides Level 131, Cholesterol Level 89, LDL Cholesterol 35L, HDL Cholesterol 28, Cholesterol/HDL Ratio 3.2L Height (Feet): 5 Height (Inches): 6.00 Weight (Pounds): 150 General Appearance: no apparent distress Cardiovascular: tachycardia Respiratory/Chest: decreased breath sounds Abdomen: soft, distended Objective other PE not changed PAWAN AZAR Apr 23, 2017 10:42
--- NOTE | 2017-04-23 11:16 | Pulmonolgy Critical Care Note ---
Critical Care - Asmt/Plan Problems: (1) Respiratory failure (2) Severe sepsis (3) Hypotension (4) GI bleed (5) History of cerebrovascular accident (6) COPD (chronic obstructive pulmonary disease) Respiratory: monitor respiratory rate, adjust FIO2 Cardiac: stop pressors, continue to monitor HR/BP Renal: F/U I&O, keep IV fluid Infectious Disease: check cultures, continue antibiotics Gastrointestinal: continue feedings/current rate Endocrine: monitor blood sugar, check HgA1C Neurologic: PRN Ativan Affect: PRN ativan Prophylaxis: Protonix, SCDs Disposition: transfer to Notes Reviewed: renal, GI Discussed with: nurses, consultants, case work aidesenior facilities manager - Objective Last 24 Hour Vital Signs Date Time Temp Pulse Resp B/P Pulse Ox O2 Delivery O2 Flow Rate FiO2 04/23/17 11:00 87 16 106/53 97 Nasal Cannula 3.0 04/23/17 10:00 97 16 102/54 97 Nasal Cannula 3.0 04/23/17 09:00 92 14 132/98 97 Nasal Cannula 3.0 04/23/17 08:00 97.9 89 18 111/56 95 Nasal Cannula 3.0 04/23/17 08:00 89 04/23/17 07:00 87 14 116/68 97 Room Air 3.0 04/23/17 06:00 93 14 125/68 97 Room Air 3.0 04/23/17 05:00 90 14 108/60 97 Room Air 3.0 04/23/17 04:00 97.8 92 15 109/59 98 Room Air 3.0 04/23/17 04:00 100 04/23/17 03:00 94 15 106/50 98 Room Air 3.0 04/23/17 02:00 101 15 110/89 98 Room Air 3.0 04/23/17 01:12 97.6 04/23/17 01:00 99 14 112/89 98 Room Air 3.0 04/23/17 00:00 97.6 107 17 118/75 99 Room Air 3.0 04/23/17 00:00 108 04/22/17 23:00 107 16 98/54 99 Room Air 3.0 04/22/17 22:00 101 14 104/77 99 Room Air 3.0 04/22/17 21:00 108 16 108/58 99 Room Air 3.0 04/22/17 20:25 97.5 04/22/17 20:00 97.5 106 17 106/60 97 Room Air 3.0 04/22/17 20:00 106 04/22/17 19:00 107 19 107/57 97 Nasal Cannula 3.0 04/22/17 18:00 110 19 110/59 97 Nasal Cannula 3.0 04/22/17 17:00 108 19 106/59 97 Nasal Cannula 3.0 04/22/17 16:00 104 04/22/17 16:00 98.2 101 20 109/76 98 Nasal Cannula 3.0 04/22/17 15:00 105 19 98/47 97 Nasal Cannula 3.0 04/22/17 14:00 101 19 128/70 98 Nasal Cannula 3.0 04/22/17 13:00 102 20 110/73 98 Nasal Cannula 3.0 04/22/17 12:00 106 04/22/17 12:00 98.0 106 19 126/89 98 Nasal Cannula 3.0 Status: awake Condition: critical, improving Neck: full ROM Lungs: clear Heart: HR/BP stable, regular Abdomen: soft, non-tender Extremities: no C/C/E, edema Decubiti: stage Micro: Microbiology Date/Time Source Procedure Growth Status 04/21/17 18:38 Blood Blood Culture - Preliminary NO GROWTH AFTER 24 HOURS Resulted 04/21/17 18:28 Blood Blood Culture - Preliminary NO GROWTH AFTER 24 HOURS Resulted 04/21/17 20:11 Urine,Clean Catch Urine Culture - Preliminary Gram Negative Bacillus 1 Resulted Critical Care - Subjective ROS Limited/Unobtainable: No ICU Day: comfortable awake Condition: critical, improving FI02: 28 Sputum Amount: None I&O: Intake and Output 04/22/17 04/23/17 19:00 07:00 Intake Total 1003.66 ml 1015.0 ml Output Total 1230 ml 920 ml Balance -226.34 ml 95.0 ml Intake Oral 50 ml IV Total 1003.66 ml 965.0 ml Output Urine Total 1230 ml 920 ml # Bowel Movements 1 CXR: no changes Labs: Laboratory Tests Test 04/23/17 04:20 04/23/17 04:30 White Blood Count 13.7 K/UL (4.8-10.8) H Red Blood Count 3.35 M/UL (4.20-5.40) L Hemoglobin 9.5 G/DL (12.0-16.0) L Hematocrit 29.2 % (37.0-47.0) L Mean Corpuscular Volume 87 FL (80-99) Mean Corpuscular Hemoglobin 28.2 PG (27.0-31.0) Mean Corpuscular Hemoglobin Concent 32.4 G/DL (32.0-36.0) Red Cell Distribution Width 14.8 % (11.6-14.8) Platelet Count 365 K/UL (150-450) Mean Platelet Volume 4.6 FL (6.5-10.1) L Neutrophils (%) (Auto) 75.3 % (45.0-75.0) H Lymphocytes (%) (Auto) 15.8 % (20.0-45.0) L Monocytes (%) (Auto) 7.2 % (1.0-10.0) Eosinophils (%) (Auto) 1.1 % (0.0-3.0) Basophils (%) (Auto) 0.6 % (0.0-2.0) Sodium Level 139 mEQ/L (135-145) Potassium Level 4.1 mEQ/L (3.4-4.9) Chloride Level 102 mEQ/L (98-107) Carbon Dioxide Level 26 mEQ/L (20-30) Anion Gap 11 (5-15) Blood Urea Nitrogen 12 mg/dL (7-23) Creatinine 0.6 mg/dL (0.5-0.9) Estimat Glomerular Filtration Rate mL/min (>60) Glucose Level 155 mg/dL (74-106) H Calcium Level 8.2 mg/dL (8.6-10.2) L Magnesium Level 1.9 mg/dL (1.7-2.5) Triglycerides Level 131 mg/dL (< 150) Cholesterol Level 89 mg/dL (< 200) LDL Cholesterol 35 mg/dL (60-99) L HDL Cholesterol 28 mg/dL (> 60) Cholesterol/HDL Ratio 3.2 (3.3-4.4) L Phosphorus Level 2.5 mg/dL (2.5-4.8) SUSEI ROCHA Apr 23, 2017 11:16
--- NOTE | 2017-04-23 11:25 | Diagnostic Imaging Report ---
Clinical Indication: Abdominal pain distention, blood in stool, abnormal labs, prior history GI bleeding Technique: No oral contrast utilized, per emergency room physician request IV administration nonionic contrast. Venous phase spiral acquisition obtained through the abdomen and pelvis. Multiplanar reconstructions were generated. Total dose length product 854 mGycm. CTDIvol(s) right mGy. Dose reduction achieved using automated exposure control Comparison: None Findings: There is colonic diverticulosis. There is fairly extensive and diffuse wall thickening of the sigmoid colon as well as the distal descending colon. There is infiltration of the pericolonic fat in the areas of wall thickening. There is a large broad-based ventral hernia, which contains veins a significant portion of the transverse colon as well as multiple small bowel loops. There at least 2 separate entry/exit points of small bowel. Some small bowel loops within and outside the hernia sac are mildly dilated, the as mentioned earlier the hernia is broad-based and there is no definite obstruction or strangulation. There is also a broad-based lateral protrusion of bowel and in the lower pole of the liver. Uncertain as whether this represents huber hernia or this laxity of the abdominal wall musculature. The appendix is not definitely demonstrated, but there are no findings to suggest acute appendicitis. No free or loculated intraperitoneal air or fluid. Distal esophagus, stomach, duodenum are unremarkable. The abdominal aorta demonstrates a juxtarenal fusiform aneurysm, maximal diameter 3.9 cm. This demonstrates mural thrombus. There is aneurysmal dilatation of the distal common iliac artery, which measures 2.2 cm in diameter. There are multiple tandem aneurysms of the internal iliac artery, the proximal one measuring 2.5 cm diameter, and the distal one measuring 3 cm diameter. These demonstrate mural thrombus. No evidence of leakage or rupture The liver is unremarkable. The gallbladder is surgically absent. No biliary ductal dilatation. The pancreas is somewhat atrophic. Spleen, adrenals are unremarkable. There are bilateral renal cysts and bilateral subcentimeter low-attenuation lesions which are too small to characterize. A 7 mm calculus is seen in the lower pole of the left kidney. The uterus is not demonstrated, presumed surgically absent. No pelvic mass. Parenchymal opacities, likely scarring and atelectasis, are seen at both lung bases. There is a small bulla in the left lung base. The bones demonstrate thoracolumbar scoliotic deformity and considerable secondary degenerative change there is a compression fracture deformity of the L1 vertebral body. There is evidence of prior vertebral augmentation procedure involving this vertebral body. There is marked spondylolisthesis of L5 on S1. There are probably bilateral L5 pars defects. There is a large bony defect within the right iliac bone, presumably a site of prior bone harvesting. There are healed fracture deformities of the bilateral superior and inferior pubic rami. Impression: Diffuse distal colonic wall thickening. Associated diverticulosis. Uncertain as whether findings represent colitis or diverticulitis. Large broad-based ventral hernia and transverse colon and multiple loops of small bowel. No evidence of obstruction or strangulation Lateral protrusion of bowel and liver on the right. Uncertain whether this represents just severe abdominal wall laxity or huber herniation. 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 No evidence of leakage or rupture Multiple right internal iliac artery aneurysms, the more proximal also involving the distal common iliac artery. No evidence of leakage or rupture Evidence of prior cholecystectomy and hysterectomy Nonobstructive 7 mm left lower pole renal calculus Bilateral basilar pulm -- onary parenchymal disease unlikely scarring and atelectasis. Evidence of bullous COPD as well Severe left thoracolumbar scoliotic deformity. Severe L5 on S1 spondylolisthesis. Uncertain as to whether there are underlying pars defects anatomy. Secondary degenerative change Evidence of prior L1 compression fracture and vertebral augmentation procedure Bilateral renal cysts. Bilateral subcentimeter low-attenuation renal lesions which are too small to characterize, most likely renal cysts. No further followup necessary This agrees with the preliminary interpretation provided overnight by Dr. Palm The CT scanner at [facility] is accredited by the [employer] and the scans are performed using protocols designed to limit radiation exposure to as low as reasonably achievable to attain images of sufficient resolution adequate for diagnostic evaluation.
--- NOTE | 2017-04-23 11:27 | Diagnostic Imaging Report ---
Indication: SOB Technique: One view of the chest Comparison: 12/31/2016 Findings: The heart is enlarged. Diffuse mild interstitial prominence appears similar to the prior exam. Probably on the basis of senescent change, as recent CT scan does not suggest any significant congestion. Dense retrocardiac opacity appears similar to the previous exam, demonstrated on recent CT to just represent the top of the left hemidiaphragm. There is thoracic scoliotic deformity and evidence of prior upper lumbar vertebral augmentation procedure. Findings are overall unchanged Impression: Cardiomegaly Interstitial disease, probably on the basis of senescent changes. No definite acute process
[2017-04-23] MEDS: Hydromorphone 0.5mg/0.5ml inj IVP PRN ×2 (16:07→20:22)
--- NOTE | 2017-04-23 16:28 | GI Progress Note ---
Assessment/Plan Problems: (1) Hypoalbuminemia ICD Codes: E88.09 - Other disorders of plasma-protein metabolism, not elsewhere classified SNOMED: 651174480 (2) Anemia ICD Codes: D64.9 - Anemia, unspecified SNOMED: 505284104 (3) Diverticulitis ICD Codes: K57.92 - Diverticulitis of intestine, part unspecified, without perforation or abscess without bleeding SNOMED: 938028690 (4) GI bleed ICD Codes: K92.2 - Gastrointestinal hemorrhage, unspecified SNOMED: 26071457 Status: stable, progressing Status Narrative Discussed with Dr. Mendoza. Assessment/Plan low fiber soft diet today IVFs pain mgmt ppi OB stool r/o GI bleed abx >> PO when discharged pt will require outpatient colonoscopy 8 weeks after discharge date The patient was seen and examined at bedside and all new and available data was reviewed in the patients chart. I agree with the above findings, impression and plan. (Patient seen earlier today. Signature stamp does not reflect patient encounter time.). -Stan Mendoza MD Subjective Gastrointestinal/Abdominal: Reports: no symptoms Objective Last 24 Hour Vital Signs Date Time Temp Pulse Resp B/P Pulse Ox O2 Delivery O2 Flow Rate FiO2 04/23/17 14:00 94 16 122/80 97 Nasal Cannula 3.0 04/23/17 13:00 97 16 128/79 97 Nasal Cannula 3.0 04/23/17 12:00 94 04/23/17 12:00 98.1 94 15 122/66 98 Nasal Cannula 3.0 04/23/17 11:00 87 16 106/53 97 Nasal Cannula 3.0 04/23/17 10:00 97 16 102/54 97 Nasal Cannula 3.0 04/23/17 09:00 92 14 132/98 97 Nasal Cannula 3.0 04/23/17 08:00 97.9 89 18 111/56 95 Nasal Cannula 3.0 04/23/17 08:00 89 04/23/17 07:00 87 14 116/68 97 Room Air 3.0 04/23/17 06:00 93 14 125/68 97 Room Air 3.0 04/23/17 05:00 90 14 108/60 97 Room Air 3.0 04/23/17 04:00 97.8 92 15 109/59 98 Room Air 3.0 04/23/17 04:00 100 04/23/17 03:00 94 15 106/50 98 Room Air 3.0 04/23/17 02:00 101 15 110/89 98 Room Air 3.0 04/23/17 01:12 97.6 04/23/17 01:00 99 14 112/89 98 Room Air 3.0 04/23/17 00:00 97.6 107 17 118/75 99 Room Air 3.0 04/23/17 00:00 108 04/22/17 23:00 107 16 98/54 99 Room Air 3.0 04/22/17 22:00 101 14 104/77 99 Room Air 3.0 04/22/17 21:00 108 16 108/58 99 Room Air 3.0 04/22/17 20:25 97.5 04/22/17 20:00 97.5 106 17 106/60 97 Room Air 3.0 04/22/17 20:00 106 04/22/17 19:00 107 19 107/57 97 Nasal Cannula 3.0 04/22/17 18:00 110 19 110/59 97 Nasal Cannula 3.0 04/22/17 17:00 108 19 106/59 97 Nasal Cannula 3.0 Intake and Output 04/22/17 04/23/17 19:00 07:00 Intake Total 1003.66 ml 1015.0 ml Output Total 1230 ml 920 ml Balance -226.34 ml 95.0 ml Intake Oral 50 ml IV Total 1003.66 ml 965.0 ml Output Urine Total 1230 ml 920 ml # Bowel Movements 1 Laboratory Tests Test 04/23/17 04:20 04/23/17 04:30 04/23/17 15:45 White Blood Count 13.7 K/UL (4.8-10.8) H Red Blood Count 3.35 M/UL (4.20-5.40) L Hemoglobin 9.5 G/DL (12.0-16.0) L Hematocrit 29.2 % (37.0-47.0) L Mean Corpuscular Volume 87 FL (80-99) Mean Corpuscular Hemoglobin 28.2 PG (27.0-31.0) Mean Corpuscular Hemoglobin Concent 32.4 G/DL (32.0-36.0) Red Cell Distribution Width 14.8 % (11.6-14.8) Platelet Count 365 K/UL (150-450) Mean Platelet Volume 4.6 FL (6.5-10.1) L Neutrophils (%) (Auto) 75.3 % (45.0-75.0) H Lymphocytes (%) (Auto) 15.8 % (20.0-45.0) L Monocytes (%) (Auto) 7.2 % (1.0-10.0) Eosinophils (%) (Auto) 1.1 % (0.0-3.0) Basophils (%) (Auto) 0.6 % (0.0-2.0) Sodium Level 139 mEQ/L (135-145) Potassium Level 4.1 mEQ/L (3.4-4.9) Chloride Level 102 mEQ/L (98-107) Carbon Dioxide Level 26 mEQ/L (20-30) Anion Gap 11 (5-15) Blood Urea Nitrogen 12 mg/dL (7-23) Creatinine 0.6 mg/dL (0.5-0.9) Estimat Glomerular Filtration Rate mL/min (>60) Glucose Level 155 mg/dL (74-106) H Calcium Level 8.2 mg/dL (8.6-10.2) L Magnesium Level 1.9 mg/dL (1.7-2.5) Triglycerides Level 131 mg/dL (< 150) Cholesterol Level 89 mg/dL (< 200) LDL Cholesterol 35 mg/dL (60-99) L HDL Cholesterol 28 mg/dL (> 60) Cholesterol/HDL Ratio 3.2 (3.3-4.4) L Phosphorus Level 2.5 mg/dL (2.5-4.8) Folate Pending Height (Feet): 5 Height (Inches): 6.00 Weight (Pounds): 150 General Appearance: no apparent distress, alert Cardiovascular: normal rate Respiratory/Chest: other - 2LNC Abdominal Exam: normal bowel sounds, non tender, soft Renae Cartwright N.Wesly Apr 23, 2017 16:28 STAN MENDOZA Apr 24, 2017 10:05
[2017-04-23] MEDS: Piperacillin/Tazobactam 3.375 GM in D5W 110 ML IVPB SCH (17:30)
[2017-04-23] MEDS ORDERED: Pantoprazole Inj IVPB SCH (21:00)
[2017-04-24] VITALS (7 sets, daily range): BP systolic 117–135; BP diastolic 61–76
[2017-04-24] MEDS: Hydromorphone 0.5mg/0.5ml inj IVP PRN ×3 (00:36→09:11)
[2017-04-24] MEDS ORDERED: Pantoprazole Inj IVP SCH (01:00)
[2017-04-24] MEDS: Piperacillin/Tazobactam 3.375 GM in D5W 110 ML IVPB SCH ×2 (01:04→09:10)
[2017-04-24] MEDS: metroNIDAZOLE 500mg 100 ML IVPB SCH ×3 (04:35→20:51)
[2017-04-24 08:02] LABS: BASOPHILS % (AUTO) 0.8 % (0.0-2.0); EOSINOPHILS % (AUTO) 0.9 % (0.0-3.0); LYMPHOCYTES % (AUTO) 24.9 % (20.0-45.0); MEAN CORPUSCULAR HEMOGLOBIN 28.2 PG (27.0-31.0); MEAN CORPUSCULAR HGB CONC 32.1 G/DL (32.0-36.0); MEAN CORPUSCULAR VOLUME 88 FL (80-99); MEAN PLATELET VOLUME 4.7 FL (6.5-10.1); MONOCYTES % (AUTO) 6.1 % (1.0-10.0); NEUTROPHILS % (AUTO) 67.4 % (45.0-75.0); PLATELET COUNT 372 K/UL (150-450); RED BLOOD COUNT 3.37 M/UL (4.20-5.40); RED CELL DISTRIBUTION WIDTH 14.9 % (11.6-14.8); WHITE BLOOD COUNT 10.8 K/UL (4.8-10.8)
[2017-04-24 08:16] LABS: ANION GAP 12 (5-15); CALCIUM 7.9 mg/dL (8.6-10.2); CARBON DIOXIDE 26 mEQ/L (20-30); CHLORIDE 100 mEQ/L (98-107); CREATININE 0.7 mg/dL (0.5-0.9); HEMOLYSIS 26; POTASSIUM 4.3 mEQ/L (3.4-4.9); SODIUM 138 mEQ/L (135-145)
[2017-04-24] MEDS ORDERED: DuoNeb 0.5-3(2.5)mg/3ml neb HHN PRN ×2 (10:30→22:30)
[2017-04-24] MEDS ORDERED: Norco 5mg/325mg tab ORAL PRN (10:30)
--- NOTE | 2017-04-24 10:35 | General Progress Note ---
Assessment/Plan Status: stable Assessment/Plan status: 1. Diverticulosis. 2. Urinary tract infection. 3. History of chronic obstructive pulmonary disease. 4. Hypotension on presentation. 5. History of congestive heart failure. 6. History of gastrointestinal bleed. Plan: Continue antibiotics- change to PO advance diet- stop hydration optimize pulm and cardiac status monitor CBC ? DC in am Subjective ROS Limited/Unobtainable: No Constitutional: Reports: malaise Allergies: Coded Allergies: No Known Allergies (Unverified , 02/17/16) Objective Last 24 Hour Vital Signs Date Time Temp Pulse Resp B/P Pulse Ox O2 Delivery O2 Flow Rate FiO2 04/24/17 07:58 96.3 96 18 135/73 95 Nasal Cannula 2.0 04/24/17 04:00 101 04/24/17 04:00 97.8 97 21 132/76 97 Nasal Cannula 2.0 04/24/17 00:00 95 04/24/17 00:00 97.8 105 20 117/61 93 Nasal Cannula 2.0 04/23/17 20:00 103 04/23/17 20:00 97.5 99 22 148/87 97 Nasal Cannula 2.0 04/23/17 16:07 98.1 04/23/17 16:00 98 04/23/17 16:00 96.9 103 18 123/66 98 Nasal Cannula 3.0 04/23/17 14:00 94 16 122/80 97 Nasal Cannula 3.0 04/23/17 13:00 97 16 128/79 97 Nasal Cannula 3.0 04/23/17 12:00 94 04/23/17 12:00 98.1 94 15 122/66 98 Nasal Cannula 3.0 04/23/17 11:00 87 16 106/53 97 Nasal Cannula 3.0 Intake and Output 04/23/17 04/24/17 19:00 07:00 Intake Total 440.0 ml 392.5 ml Output Total 1110 ml 1000 ml Balance -670.0 ml -607.5 ml Intake Oral 230 ml IV Total 210.0 ml 392.5 ml Output Urine Total 1110 ml 1000 ml Laboratory Tests 04/23/17 15:45: Folate [Pending] 04/24/17 07:45: White Blood Count 10.8, Red Blood Count 3.37L, Hemoglobin 9.5L, Hematocrit 29.6L , Mean Corpuscular Volume 88, Mean Corpuscular Hemoglobin 28.2, Mean Corpuscular Hemoglobin Concent 32.1, Red Cell Distribution Width 14.9H, Platelet Count 372, Mean Platelet Volume 4.7L, Neutrophils (%) (Auto) 67.4, Lymphocytes (%) (Auto) 24.9, Monocytes (%) (Auto) 6.1, Eosinophils (%) (Auto) 0.9, Basophils (%) (Auto) 0.8, Sodium Level 138, Potassium Level 4.3, Chloride Level 100, Carbon Dioxide Level 26, Anion Gap 12, Blood Urea Nitrogen 9, Creatinine 0.7, Estimat Glomerular Filtration Rate , Glucose Level 177H, Calcium Level 7.9L Height (Feet): 5 Height (Inches): 6.00 Weight (Pounds): 150 General Appearance: no apparent distress Objective other PE not changed PAWAN AZAR Apr 24, 2017 10:35
--- NOTE | 2017-04-24 10:58 | GI Progress Note ---
Assessment/Plan Problems: (1) Hypoalbuminemia ICD Codes: E88.09 - Other disorders of plasma-protein metabolism, not elsewhere classified SNOMED: 903893484 (2) Anemia ICD Codes: D64.9 - Anemia, unspecified SNOMED: 971278458 (3) Diverticulitis ICD Codes: K57.92 - Diverticulitis of intestine, part unspecified, without perforation or abscess without bleeding SNOMED: 201606755 (4) GI bleed ICD Codes: K92.2 - Gastrointestinal hemorrhage, unspecified SNOMED: 30550519 Status: doing well, stable, progressing Status Narrative Discussed with Dr. Mendoza. Assessment/Plan dc planning low fiber soft diet, tolerating IVFs pain mgmt ppi OB stool r/o GI bleed abx >> PO when discharged fu labs pt will require outpatient colonoscopy 8 weeks after discharge date The patient was seen and examined at bedside and all new and available data was reviewed in the patients chart. I agree with the above findings, impression and plan. (Patient seen earlier today. Signature stamp does not reflect patient encounter time.). -Stan Mendoza MD Subjective Gastrointestinal/Abdominal: Reports: no symptoms Subjective abdominal pain greatly improved tolerating diet Objective Last 24 Hour Vital Signs Date Time Temp Pulse Resp B/P Pulse Ox O2 Delivery O2 Flow Rate FiO2 04/24/17 07:58 96.3 96 18 135/73 95 Nasal Cannula 2.0 04/24/17 04:00 101 04/24/17 04:00 97.8 97 21 132/76 97 Nasal Cannula 2.0 04/24/17 00:00 95 04/24/17 00:00 97.8 105 20 117/61 93 Nasal Cannula 2.0 04/23/17 20:00 103 04/23/17 20:00 97.5 99 22 148/87 97 Nasal Cannula 2.0 04/23/17 16:07 98.1 04/23/17 16:00 98 04/23/17 16:00 96.9 103 18 123/66 98 Nasal Cannula 3.0 04/23/17 14:00 94 16 122/80 97 Nasal Cannula 3.0 04/23/17 13:00 97 16 128/79 97 Nasal Cannula 3.0 04/23/17 12:00 94 04/23/17 12:00 98.1 94 15 122/66 98 Nasal Cannula 3.0 04/23/17 11:00 87 16 106/53 97 Nasal Cannula 3.0 Intake and Output 04/23/17 04/24/17 19:00 07:00 Intake Total 440.0 ml 392.5 ml Output Total 1110 ml 1000 ml Balance -670.0 ml -607.5 ml Intake Oral 230 ml IV Total 210.0 ml 392.5 ml Output Urine Total 1110 ml 1000 ml Laboratory Tests Test 04/23/17 15:45 04/24/17 07:45 Folate Pending White Blood Count 10.8 K/UL (4.8-10.8) Red Blood Count 3.37 M/UL (4.20-5.40) L Hemoglobin 9.5 G/DL (12.0-16.0) L Hematocrit 29.6 % (37.0-47.0) L Mean Corpuscular Volume 88 FL (80-99) Mean Corpuscular Hemoglobin 28.2 PG (27.0-31.0) Mean Corpuscular Hemoglobin Concent 32.1 G/DL (32.0-36.0) Red Cell Distribution Width 14.9 % (11.6-14.8) H Platelet Count 372 K/UL (150-450) Mean Platelet Volume 4.7 FL (6.5-10.1) L Neutrophils (%) (Auto) 67.4 % (45.0-75.0) Lymphocytes (%) (Auto) 24.9 % (20.0-45.0) Monocytes (%) (Auto) 6.1 % (1.0-10.0) Eosinophils (%) (Auto) 0.9 % (0.0-3.0) Basophils (%) (Auto) 0.8 % (0.0-2.0) Sodium Level 138 mEQ/L (135-145) Potassium Level 4.3 mEQ/L (3.4-4.9) Chloride Level 100 mEQ/L (98-107) Carbon Dioxide Level 26 mEQ/L (20-30) Anion Gap 12 (5-15) Blood Urea Nitrogen 9 mg/dL (7-23) Creatinine 0.7 mg/dL (0.5-0.9) Estimat Glomerular Filtration Rate mL/min (>60) Glucose Level 177 mg/dL (74-106) H Calcium Level 7.9 mg/dL (8.6-10.2) L Height (Feet): 5 Height (Inches): 6.00 Weight (Pounds): 150 General Appearance: no apparent distress, alert Cardiovascular: normal rate Respiratory/Chest: normal breath sounds, no respiratory distress Abdominal Exam: normal bowel sounds, non tender, soft Renae Cartwright N.P. Apr 24, 2017 10:58 STAN MENDOZA Apr 25, 2017 13:05
[2017-04-24] MEDS: Lactobacillus-GG tablet ORAL SCH ×2 (12:33→18:45)
[2017-04-24] MEDS: Docusate 100mg cap ORAL SCH ×3 (12:33→18:45)
--- NOTE | 2017-04-24 12:43 | Pulmonology Progress Note ---
Assessment/Plan Problems: (1) Severe sepsis (2) COPD (chronic obstructive pulmonary disease) (3) Gastrointestinal hemorrhage (4) Dehydration (5) Anemia Assessment/Plan wbc decreasing Proteus in urine sensitive to levoflox only intermittently change to Ceftriaxone tolerating diet dc planning Subjective ROS Limited/Unobtainable: No Constitutional: Reports: no symptoms HEENT: Repors: no symptoms Respiratory: Reports: no symptoms Allergies: Coded Allergies: No Known Allergies (Unverified , 02/17/16) Objective Last 24 Hour Vital Signs Date Time Temp Pulse Resp B/P Pulse Ox O2 Delivery O2 Flow Rate FiO2 04/24/17 11:35 96.5 92 18 131/69 96 Nasal Cannula 2.0 04/24/17 07:58 96.3 96 18 135/73 95 Nasal Cannula 2.0 04/24/17 04:00 101 04/24/17 04:00 97.8 97 21 132/76 97 Nasal Cannula 2.0 04/24/17 00:00 95 04/24/17 00:00 97.8 105 20 117/61 93 Nasal Cannula 2.0 04/23/17 20:00 103 04/23/17 20:00 97.5 99 22 148/87 97 Nasal Cannula 2.0 04/23/17 16:07 98.1 04/23/17 16:00 98 04/23/17 16:00 96.9 103 18 123/66 98 Nasal Cannula 3.0 04/23/17 14:00 94 16 122/80 97 Nasal Cannula 3.0 04/23/17 13:00 97 16 128/79 97 Nasal Cannula 3.0 Intake and Output 04/23/17 04/24/17 19:00 07:00 Intake Total 440.0 ml 392.5 ml Output Total 1110 ml 1000 ml Balance -670.0 ml -607.5 ml Intake Oral 230 ml IV Total 210.0 ml 392.5 ml Output Urine Total 1110 ml 1000 ml General Appearance: WD/WN HEENT: normocephalic, atraumatic Respiratory/Chest: chest wall non-tender, lungs clear Cardiovascular: normal peripheral pulses, normal rate Abdomen: normal bowel sounds, soft, non tender Extremities: no cyanosis Microbiology Date/Time Source Procedure Growth Status 04/21/17 18:38 Blood Blood Culture - Preliminary NO GROWTH AFTER 48 HOURS Resulted 04/21/17 18:28 Blood Blood Culture - Preliminary NO GROWTH AFTER 48 HOURS Resulted 04/21/17 21:07 Nasal Nares MRSA Culture - Final NO METHICILLIN RESISTANT STAPH AUREUS... Complete 04/21/17 20:11 Urine,Clean Catch Urine Culture - Preliminary Proteus Mirabilis Gram Negative Bacillus 2 Resulted Laboratory Tests 04/23/17 15:45: Folate [Pending] 04/24/17 07:45: White Blood Count 10.8, Red Blood Count 3.37L, Hemoglobin 9.5L, Hematocrit 29.6L , Mean Corpuscular Volume 88, Mean Corpuscular Hemoglobin 28.2, Mean Corpuscular Hemoglobin Concent 32.1, Red Cell Distribution Width 14.9H, Platelet Count 372, Mean Platelet Volume 4.7L, Neutrophils (%) (Auto) 67.4, Lymphocytes (%) (Auto) 24.9, Monocytes (%) (Auto) 6.1, Eosinophils (%) (Auto) 0.9, Basophils (%) (Auto) 0.8, Sodium Level 138, Potassium Level 4.3, Chloride Level 100, Carbon Dioxide Level 26, Anion Gap 12, Blood Urea Nitrogen 9, Creatinine 0.7, Estimat Glomerular Filtration Rate , Glucose Level 177H, Calcium Level 7.9L Current Medications Medications (Trade) Dose Ordered Sig/Meera Route PRN Reason Start Time Stop Time Status Last Admin Dose Admin Acetaminophen (Tylenol) 650 mg Q4H PRN ORAL T>100.5 04/24/17 10:30 05/24/17 10:29 Acetaminophen/ Hydrocodone Bitart ([place] 5/325) 1 tab Q8H PRN ORAL For Pain 04/24/17 10:30 05/01/17 10:29 Albuterol/ Ipratropium (DuoNeb 0.5-3(2.5)mg/3ml) 3 ml Q4H PRN HHN Shortness of Breath 04/24/17 10:30 04/29/17 10:29 Atorvastatin Calcium (Lipitor) 40 mg BEDTIME ORAL 04/23/17 21:00 05/23/17 20:59 04/23/17 20:41 Docusate Sodium (Colace) 100 mg THREE TIMES A DAY ORAL 04/24/17 13:00 05/24/17 12:59 04/24/17 12:33 Lactobacillus Acidophilus (Culturelle) 1 tab THREE TIMES A DAY ORAL 04/24/17 13:00 05/24/17 12:59 04/24/17 12:33 Levofloxacin (Levaquin) 500 mg DAILY ORAL 04/25/17 09:00 05/02/17 08:59 Metronidazole (Flagyl) 100 ml @ 100 mls/hr Q8H IVPB 04/23/17 21:00 04/30/17 20:59 04/24/17 12:33 Pantoprazole (Protonix) 40 mg EVERY 12 HOURS ORAL 04/24/17 21:00 05/24/17 20:59 Vitamin D (Vitamin D) 1,000 intlu DAILY ORAL 04/25/17 09:00 05/25/17 08:59 SUSIE ROCHA Apr 24, 2017 12:43
[2017-04-24] MEDS ORDERED: cefTRIAXone 1 GM in D5W 55 ML IVPB SCH (14:00)
[2017-04-24] MEDS: Norco 5mg/325mg tab ORAL PRN (22:17)
[2017-04-25] VITALS: BP 115/68
[2017-04-25 04:00] VITALS: BP 131/71
[2017-04-25] MEDS ORDERED: metroNIDAZOLE 500mg 100 ML IVPB SCH (05:00)
[2017-04-25 06:49] LABS: ANION GAP 15 (5-15); CALCIUM 8.5 mg/dL (8.6-10.2); CARBON DIOXIDE 25 mEQ/L (20-30); CHLORIDE 100 mEQ/L (98-107); CREATININE 0.6 mg/dL (0.5-0.9); HEMOLYSIS 0; POTASSIUM 4.1 mEQ/L (3.4-4.9); SODIUM 140 mEQ/L (135-145)
[2017-04-25 07:12] LABS: EOSINOPHILS % (AUTO) 0.9 % (0.0-3.0); LYMPHOCYTES % (AUTO) 23.9 % (20.0-45.0); MEAN CORPUSCULAR HEMOGLOBIN 29.1 PG (27.0-31.0); MEAN CORPUSCULAR VOLUME 88 FL (80-99); MEAN PLATELET VOLUME 4.3 FL (6.5-10.1); NEUTROPHILS % (AUTO) 66.3 % (45.0-75.0); PLATELET COUNT 356 K/UL (150-450); RED BLOOD COUNT 3.32 M/UL (4.20-5.40); RED CELL DISTRIBUTION WIDTH 14.7 % (11.6-14.8); WHITE BLOOD COUNT 11.4 K/UL (4.8-10.8)
[2017-04-25] MEDS: Norco 5mg/325mg tab ORAL PRN (07:16)
[2017-04-25 08:00] VITALS: BP 133/90
[2017-04-25] MEDS ORDERED: Vitamin D 1000 IU Tab ORAL SCH ×2 (09:00)
[2017-04-25] MEDS ORDERED: Levofloxacin 500mg tab ORAL SCH (09:00)
[2017-04-25] MEDS: Docusate 100mg cap ORAL SCH ×3 (09:16→17:32)
[2017-04-25] MEDS: Lactobacillus-GG tablet ORAL SCH ×3 (09:17→17:32)
[2017-04-25] MEDS: Bactrim DS (160mg/800mg) tab ORAL SCH ×2 (09:22→17:32)
[2017-04-25] MEDS ORDERED: Ertapenem 1 GM in NS 55 ML IVPB ONE (10:00)
--- NOTE | 2017-04-25 11:05 | GI Progress Note ---
Assessment/Plan Problems: (1) Hypoalbuminemia ICD Codes: E88.09 - Other disorders of plasma-protein metabolism, not elsewhere classified SNOMED: 921538166 (2) Anemia ICD Codes: D64.9 - Anemia, unspecified SNOMED: 750475847 (3) Diverticulitis ICD Codes: K57.92 - Diverticulitis of intestine, part unspecified, without perforation or abscess without bleeding SNOMED: 593171597 (4) GI bleed ICD Codes: K92.2 - Gastrointestinal hemorrhage, unspecified SNOMED: 16990180 Status: stable Status Narrative Discussed with Dr. Mendoza. Assessment/Plan ok for DC per GI standpoint, pt will require outpatient colonoscopy 8 weeks after discharge date low fiber soft diet, tolerating IVFs pain mgmt ppi OB stool r/o GI bleed abx >> PO when discharged Subjective Subjective abdominal pain greatly improved tolerating diet wants to go home Objective Last 24 Hour Vital Signs Date Time Temp Pulse Resp B/P Pulse Ox O2 Delivery O2 Flow Rate FiO2 04/25/17 09:58 101 16 Nasal Cannula 2.0 04/25/17 09:15 97.5 04/25/17 08:00 97.5 103 19 133/90 95 Room Air 04/25/17 04:00 97.2 95 20 131/71 96 Nasal Cannula 2.0 04/25/17 00:00 97.5 100 20 115/68 94 Nasal Cannula 2.0 04/24/17 22:00 97.9 95 20 124/76 96 Nasal Cannula 2.0 04/24/17 20:00 97.5 99 21 131/75 95 Nasal Cannula 2.0 04/24/17 16:12 97.5 87 18 120/66 96 Nasal Cannula 2.0 04/24/17 16:00 93 04/24/17 12:00 88 04/24/17 11:35 96.5 92 18 131/69 96 Nasal Cannula 2.0 Intake and Output 04/24/17 04/25/17 19:00 07:00 Intake Total 727.5 ml 560 ml Output Total 800 ml 1400 ml Balance -72.5 ml -840 ml Intake Oral 700 ml 360 ml IV Total 27.5 ml 200 ml Output Urine Total 800 ml 1400 ml Laboratory Tests Test 04/25/17 04:40 White Blood Count 11.4 K/UL (4.8-10.8) H Red Blood Count 3.32 M/UL (4.20-5.40) L Hemoglobin 9.7 G/DL (12.0-16.0) L Hematocrit 29.3 % (37.0-47.0) L Mean Corpuscular Volume 88 FL (80-99) Mean Corpuscular Hemoglobin 29.1 PG (27.0-31.0) Mean Corpuscular Hemoglobin Concent 33.0 G/DL (32.0-36.0) Red Cell Distribution Width 14.7 % (11.6-14.8) Platelet Count 356 K/UL (150-450) Mean Platelet Volume 4.3 FL (6.5-10.1) L Neutrophils (%) (Auto) 66.3 % (45.0-75.0) Lymphocytes (%) (Auto) 23.9 % (20.0-45.0) Monocytes (%) (Auto) 8.0 % (1.0-10.0) Eosinophils (%) (Auto) 0.9 % (0.0-3.0) Basophils (%) (Auto) 1.0 % (0.0-2.0) Sodium Level 140 mEQ/L (135-145) Potassium Level 4.1 mEQ/L (3.4-4.9) Chloride Level 100 mEQ/L (98-107) Carbon Dioxide Level 25 mEQ/L (20-30) Anion Gap 15 (5-15) Blood Urea Nitrogen 6 mg/dL (7-23) L Creatinine 0.6 mg/dL (0.5-0.9) Estimat Glomerular Filtration Rate mL/min (>60) Glucose Level 119 mg/dL (74-106) H Calcium Level 8.5 mg/dL (8.6-10.2) L Height (Feet): 5 Height (Inches): 6.00 Weight (Pounds): 150 General Appearance: no apparent distress, alert Cardiovascular: normal rate Respiratory/Chest: normal breath sounds, no respiratory distress, other - 2LNC Abdominal Exam: normal bowel sounds, non tender, soft Renae Cartwright N.PSrikanth Apr 25, 2017 11:05
[2017-04-25 11:43] LABS: APPEARANCE,URINE CLEAR; KETONES,URINE NEGATIVE (NEGATIVE); LEUKOCYTE ESTERASE ,URINE 3+ (NEGATIVE); NITRITE,URINE NEGATIVE (NEGATIVE); PH,URINE 7 (4.5-8.0); PROTEIN,URINE 1+ (NEGATIVE); UROBILINOGEN,URINE NORMAL MG/DL (0.0-1.0)
[2017-04-25 11:55] LABS: BACTERIA,URINE FEW /HPF; RBC,URINE 20-30 /HPF (0 - 2); SQUAMOUS EPITHELIAL CELL,UR FEW /LPF (NONE/OCC); WBC,URINE 15-20 /HPF (0 - 2)
[2017-04-25 12:00] VITALS: BP_SYST 104; BP_SYST 144; BP_DIAS 47; BP_DIAS 83
--- NOTE | 2017-04-25 13:49 | General Progress Note ---
Assessment/Plan Status: stable Assessment/Plan status: 1. Diverticulosis. 2. Urinary tract infection. 3. History of chronic obstructive pulmonary disease. 4. Hypotension on presentation. 5. History of congestive heart failure. 6. History of gastrointestinal bleed. Plan: Continue antibiotics- change to PO Bactrim advance diet- stop hydration optimize pulm and cardiac status monitor CBC ? DC ECF Subjective ROS Limited/Unobtainable: No Constitutional: Reports: malaise Allergies: Coded Allergies: No Known Allergies (Unverified , 02/17/16) Objective Last 24 Hour Vital Signs Date Time Temp Pulse Resp B/P Pulse Ox O2 Delivery O2 Flow Rate FiO2 04/25/17 12:00 97.3 92 19 144/83 94 Nasal Cannula 04/25/17 09:58 101 16 Nasal Cannula 2.0 04/25/17 09:15 97.5 04/25/17 08:00 97.5 103 19 133/90 95 Room Air 04/25/17 04:00 97.2 95 20 131/71 96 Nasal Cannula 2.0 04/25/17 00:00 97.5 100 20 115/68 94 Nasal Cannula 2.0 04/24/17 22:00 97.9 95 20 124/76 96 Nasal Cannula 2.0 04/24/17 20:00 97.5 99 21 131/75 95 Nasal Cannula 2.0 04/24/17 16:12 97.5 87 18 120/66 96 Nasal Cannula 2.0 04/24/17 16:00 93 Intake and Output 04/24/17 04/25/17 19:00 07:00 Intake Total 727.5 ml 560 ml Output Total 800 ml 1400 ml Balance -72.5 ml -840 ml Intake Oral 700 ml 360 ml IV Total 27.5 ml 200 ml Output Urine Total 800 ml 1400 ml Current Medications Medications (Trade) Dose Ordered Sig/Meera Route PRN Reason Start Time Stop Time Status Last Admin Dose Admin Acetaminophen (Tylenol) 650 mg Q4H PRN ORAL T>100.5 04/24/17 22:30 05/24/17 22:29 Acetaminophen/ Hydrocodone Bitart ([place] 5/325) 1 tab Q8H PRN ORAL For Pain 04/24/17 22:06 05/01/17 22:05 04/25/17 07:16 Albuterol/ Ipratropium (DuoNeb 0.5-3(2.5)mg/3ml) 3 ml Q4H PRN HHN Shortness of Breath 04/24/17 22:30 04/29/17 22:29 Atorvastatin Calcium (Lipitor) 40 mg BEDTIME ORAL 04/25/17 21:00 05/25/17 20:59 Docusate Sodium (Colace) 100 mg THREE TIMES A DAY ORAL 04/25/17 09:00 05/25/17 08:59 04/25/17 12:40 Lactobacillus Acidophilus (Culturelle) 1 tab THREE TIMES A DAY ORAL 04/25/17 09:00 05/25/17 08:59 04/25/17 12:40 Pantoprazole (Protonix) 40 mg EVERY 12 HOURS ORAL 04/25/17 09:00 05/25/17 08:59 04/25/17 09:17 Trimethoprim/ Sulfamethoxazole (Bactrim-DS) 1 ea TWICE A DAY ORAL 04/25/17 09:00 05/02/17 08:59 04/25/17 09:22 Vitamin D (Vitamin D) 1,000 intlu DAILY ORAL 04/25/17 09:00 05/25/17 08:59 04/25/17 09:17 Laboratory Tests 04/25/17 04:40: White Blood Count 11.4H, Red Blood Count 3.32L, Hemoglobin 9.7L, Hematocrit 29.3L, Mean Corpuscular Volume 88, Mean Corpuscular Hemoglobin 29.1, Mean Corpuscular Hemoglobin Concent 33.0, Red Cell Distribution Width 14.7, Platelet Count 356, Mean Platelet Volume 4.3L, Neutrophils (%) (Auto) 66.3, Lymphocytes ( %) (Auto) 23.9, Monocytes (%) (Auto) 8.0, Eosinophils (%) (Auto) 0.9, Basophils (%) (Auto) 1.0, Sodium Level 140, Potassium Level 4.1, Chloride Level 100, Carbon Dioxide Level 25, Anion Gap 15, Blood Urea Nitrogen 6L, Creatinine 0.6, Estimat Glomerular Filtration Rate , Glucose Level 119H, Calcium Level 8.5L 04/25/17 10:30: Urine Color Yellow, Urine Appearance Clear, Urine pH 7, Urine Specific [place] 1.005, Urine Protein 1+H, Urine Glucose (UA) Negative, Urine Ketones Negative, Urine Occult Blood 5+H, Urine Nitrite Negative, Urine Bilirubin Negative, Urine Urobilinogen Normal, Urine Leukocyte Esterase 3+H, Urine RBC 20-30H, Urine WBC 15-20H, Urine Squamous Epithelial Cells Few, Urine Bacteria Few Height (Feet): 5 Height (Inches): 6.00 Weight (Pounds): 150 General Appearance: no apparent distress Objective other PE not changed PAWAN AZAR Apr 25, 2017 13:49
[2017-04-25] MEDS ORDERED: CULTURELLE1 EACH ORAL (13:53)
[2017-04-25] MEDS ORDERED: BACTRIM-DS1 EA ORAL (13:53)
--- NOTE | 2017-04-25 13:54 | Discharge Instructions ---
Discharge Instructions Discharge Instructions Follow up with: myself at [facility] Diet: cardiac 2 GM Na, low fat Activity: other - PT OT Special Instructions routin skin care- fall percautions- HHN treatment O2 For Congestive Heart Failure Reminder Report to your physician any weight gain of 5 pounds or more in one week. PAWAN AZAR Apr 25, 2017 13:54
[2017-04-25] MEDS ORDERED: Norco 5mg/325mg tab ORAL PRN (13:56)
[2017-04-25] MEDS ORDERED: cefTRIAXone 1 GM in D5W 55 ML IVPB SCH (14:00)
[2017-04-25] MEDS ORDERED: D5 1/2NS 1000ml IV ONE (15:30)
[2017-04-25] MEDS ORDERED: Tubing IV Secondary IV ONE ×2 (15:30→18:45)
--- NOTE | 2017-04-25 15:32 | Pulmonology Progress Note ---
Assessment/Plan Problems: (1) Severe sepsis (2) COPD (chronic obstructive pulmonary disease) (3) Gastrointestinal hemorrhage (4) Dehydration (5) Anemia Assessment/Plan wbc decreasing Proteus in urine sensitive to levoflox only intermittently change to Ceftriaxone tolerating diet dc planning might go to shelter with oral abx Subjective ROS Limited/Unobtainable: No Constitutional: Reports: no symptoms HEENT: Repors: no symptoms Respiratory: Reports: no symptoms Allergies: Coded Allergies: No Known Allergies (Unverified , 02/17/16) Objective Last 24 Hour Vital Signs Date Time Temp Pulse Resp B/P Pulse Ox O2 Delivery O2 Flow Rate FiO2 04/25/17 12:00 97.3 92 19 144/83 94 Nasal Cannula 04/25/17 09:58 101 16 Nasal Cannula 2.0 04/25/17 09:15 97.5 04/25/17 08:00 97.5 103 19 133/90 95 Room Air 04/25/17 04:00 97.2 95 20 131/71 96 Nasal Cannula 2.0 04/25/17 00:00 97.5 100 20 115/68 94 Nasal Cannula 2.0 04/24/17 22:00 97.9 95 20 124/76 96 Nasal Cannula 2.0 04/24/17 20:00 97.5 99 21 131/75 95 Nasal Cannula 2.0 04/24/17 16:12 97.5 87 18 120/66 96 Nasal Cannula 2.0 04/24/17 16:00 93 Intake and Output 04/24/17 04/25/17 19:00 07:00 Intake Total 727.5 ml 560 ml Output Total 800 ml 1400 ml Balance -72.5 ml -840 ml Intake Oral 700 ml 360 ml IV Total 27.5 ml 200 ml Output Urine Total 800 ml 1400 ml General Appearance: WD/WN HEENT: normocephalic, atraumatic Respiratory/Chest: chest wall non-tender, lungs clear Cardiovascular: normal peripheral pulses, normal rate Abdomen: normal bowel sounds, soft, non tender, no organomegaly Genitourinary: normal external genitalia Extremities: no clubbing Skin: no rash, no lesions Laboratory Tests 04/25/17 04:40: White Blood Count 11.4H, Red Blood Count 3.32L, Hemoglobin 9.7L, Hematocrit 29.3L, Mean Corpuscular Volume 88, Mean Corpuscular Hemoglobin 29.1, Mean Corpuscular Hemoglobin Concent 33.0, Red Cell Distribution Width 14.7, Platelet Count 356, Mean Platelet Volume 4.3L, Neutrophils (%) (Auto) 66.3, Lymphocytes ( %) (Auto) 23.9, Monocytes (%) (Auto) 8.0, Eosinophils (%) (Auto) 0.9, Basophils (%) (Auto) 1.0, Sodium Level 140, Potassium Level 4.1, Chloride Level 100, Carbon Dioxide Level 25, Anion Gap 15, Blood Urea Nitrogen 6L, Creatinine 0.6, Estimat Glomerular Filtration Rate , Glucose Level 119H, Calcium Level 8.5L 04/25/17 10:30: Urine Color Yellow, Urine Appearance Clear, Urine pH 7, Urine Specific [place] 1.005, Urine Protein 1+H, Urine Glucose (UA) Negative, Urine Ketones Negative, Urine Occult Blood 5+H, Urine Nitrite Negative, Urine Bilirubin Negative, Urine Urobilinogen Normal, Urine Leukocyte Esterase 3+H, Urine RBC 20-30H, Urine WBC 15-20H, Urine Squamous Epithelial Cells Few, Urine Bacteria Few Current Medications Medications (Trade) Dose Ordered Sig/Meera Route PRN Reason Start Time Stop Time Status Last Admin Dose Admin Acetaminophen (Tylenol) 650 mg Q4H PRN ORAL T>100.5 04/24/17 22:30 05/24/17 22:29 Acetaminophen/ Hydrocodone Bitart ([place] 5/325) 1 tab Q8H PRN ORAL Breakthrough pain 04/25/17 13:56 04/25/17 18:00 Acetaminophen/ Hydrocodone Bitart ([place] 5/325) 1 tab QID ORAL 04/25/17 21:00 05/02/17 20:59 04/25/17 14:43 Albuterol/ Ipratropium (DuoNeb 0.5-3(2.5)mg/3ml) 3 ml Q4H PRN HHN Shortness of Breath 04/24/17 22:30 04/29/17 22:29 Atorvastatin Calcium (Lipitor) 40 mg BEDTIME ORAL 04/25/17 21:00 05/25/17 20:59 Docusate Sodium (Colace) 100 mg THREE TIMES A DAY ORAL 04/25/17 09:00 05/25/17 08:59 04/25/17 12:40 Lactobacillus Acidophilus (Culturelle) 1 tab THREE TIMES A DAY ORAL 04/25/17 09:00 05/25/17 08:59 04/25/17 12:40 Pantoprazole (Protonix) 40 mg EVERY 12 HOURS ORAL 04/25/17 09:00 05/25/17 08:59 04/25/17 09:17 Trimethoprim/ Sulfamethoxazole (Bactrim-DS) 1 ea TWICE A DAY ORAL 04/25/17 09:00 05/02/17 08:59 04/25/17 09:22 Vitamin D (Vitamin D) 1,000 intlu DAILY ORAL 04/25/17 09:00 05/25/17 08:59 04/25/17 09:17 SUSIE ROCHA Apr 25, 2017 15:32
[2017-04-25 16:31] VITALS: BP 142/77
[2017-04-25] MEDS ORDERED: NORCO 5-325 TA1 EACH ORAL (18:21)
[2017-04-25] MEDS ORDERED: NS 275ml ONE (18:45)
[2017-04-25] MEDS ORDERED: Norco 5mg/325mg tab ORAL SCH (21:00)
--- NOTE | 2017-04-26 11:40 | Discharge Summary ---
Discharge Summary Hospital Course Date of Admission Apr 21, 2017 at 20:01 Date of Discharge Apr 25, 2017 at 18:46 Admitting Diagnosis lower gI bleeding HPI Jane Lundberg is a 87 year old female who was admitted on Apr 21, 2017 at 20: 01 for Lower Gastrointestinal Bleeding Hospital Course [id number] Discharge Discharge Disposition Patient was discharged to SNF/Subacute Facility(03) Discharge Diagnoses: Discharge Instructions Discharge Instructions Follow up with: myself at [facility] Activity: other - PT Alannah Black NP Apr 26, 2017 11:40
--- NOTE | 2017-04-26 12:48 | Cardiology Report ---
APPROVED REPORT EXAM: Two-dimensional and M-mode echocardiogram with Doppler and color Doppler. M-Mode DIMENSIONS IVSd1.0 (0.7-1.1cm)Left Atrium (MM)4.3 (1.6-4.0cm) LVDd5.6 (3.5-5.6cm)Aortic Root2.8 (2.0-3.7cm) PWd1.1 (0.7-1.1cm)Aortic Cusp Exc.1.5 (1.5-2.0cm) IVSs1.7 cm LVDs3.1 (2.5-4.0cm) PWs1.3 cm Technically difficult study due to poor acoustic windows. Normal left ventricular chamber size, systolic function and wall motion. Left ventricular ejection fraction estimated to be 60-65 %. Mild left ventricular hypertrophy. Mild anterior pericardial effusion. Focal aortic valve sclerosis with adequate cusp excursion Thickened mitral valve leaflets with normal excursion. Mitral annulus and aortic root calcification. Pulmonic valve not well visualized. Normal tricuspid valve structure. IVC is normal in size with physiological collapse. A color flow and spectral Doppler study was performed and revealed: No aortic regurgitation. Trace mitral regurgitation. Left ventricular diastolic dysfunction grade 1. No tricuspid regurgitation. Tricuspid systolic velocities suggests peak right ventricular systolic pressure of 31 mmHg
--- NOTE | 2017-04-26 22:00 | Discharge Summary 2 SIG ---
DATE OF ADMISSION: 04/21/2017 DATE OF DISCHARGE: 04/25/2017 CONSULTANTS: 1. Stan Mendoza M.D. 2. Gerald Miller M.D. BRIEF HOSPITAL COURSE: The patient is an 87-year-old female who is a resident of [facility], had three times watery diarrhea. She was taken to the emergency room where initial workup showed leukocytosis with white blood cell count of 24,000 and also had a CAT scan, which revealed diverticulitis. The patient was hypotensive. Chest x-ray done showed questionable right upper lobe atelectasis and bilateral lower lobe atelectasis/effusion. She was followed by Dr. Mendoza and was given IV hydration and was initially started on clear liquid diet. She was given proton pump inhibitors and pain management. She was started on metronidazole and Zosyn. The patient would require outpatient colonoscopy eight weeks after discharge. Dr. Miller was consulted for evaluation of pulmonary status. Diet was advanced. Antibiotic was changed to p.o. Bactrim. Intravenous fluids was discontinued. Urine culture showed growth of Proteus and ESBL E. coli. Repeat urine culture was negative. She was eventually discharged back to senior living. FINAL DIAGNOSES: 1. Acute diverticulosis. 2. Urinary tract infection. 3. Chronic obstructive pulmonary disease. 4. Hypotensive on presentation. 5. Dehydration. 6. . 7. Anemia. 8. Hypoalbuminemia. Paresh Snow M.D. I have been assigned to dictate discharge summary on this account and I was not involved in the patient's management. Alannah Conde N.P. DR: BELA JOB#: [id number] CC:
== END 2017-04-25 18:46 | DRG 871 ==
LOC: EDBD 17:55 → EMR 18:16 → EDBEDREQSVC 19:29 → EDBEDREQ 19:29 → ICU 20:01 → 2E 04-23 14:35 → 4E 04-24 21:57
DX: A41.9 Sepsis, unspecified organism (principal); J96.90 Respiratory failure, unspecified, unspecified whether with hypoxia or hypercapnia; K92.2 Gastrointestinal hemorrhage, unspecified; K57.92 Diverticulitis of intestine, part unspecified, without perforation or abscess without bleeding; I50.9 Heart failure, unspecified; E88.09 Other disorders of plasma-protein metabolism, not elsewhere classified; N39.0 Urinary tract infection, site not specified; J44.9 Chronic obstructive pulmonary disease, unspecified; R65.20 Severe sepsis without septic shock; Z86.73 Personal history of transient ischemic attack (TIA), and cerebral infarction without residual deficits; E86.0 Dehydration; B96.4 Proteus (mirabilis) (morganii) as the cause of diseases classified elsewhere; B96.20 Unspecified Escherichia coli [E. coli] as the cause of diseases classified elsewhere; Z16.12 Extended spectrum beta lactamase (ESBL) resistance
CPT/HCPCS: 36415; 71010; 74177; 80048; 80053; 80061; 81001; 81003; 82550; 82553; 82607; 82728; 82746; 82962; 82977; 83540; 83550; 83605; 83735; 83880; 84100; 84484; 84550; 85007; 85025; 85610; 85730; 86850; 86900; 86901; 86920; 87040; 87081; 87086; 87181; 93005; 93306; 93970; 94640; 94664; J7620

== ENCOUNTER 2017-11-21 17:36 | Emergency (ER) | payer MEDICARE, MEDICAID ==
[~2017-11-21] VITALS: Ht 167.6 cm; Wt 81.2 kg
[~2017-11-21 17:36] MED LIST changes: +BACTRIM-DS1 EA ORAL; +CULTURELLE1 EACH ORAL
[2017-11-21 17:45] VITALS: BP 111/69
[2017-11-21] MEDS ORDERED: Sodium Chloride 500ML 500 ML IV ONE (17:54)
[2017-11-21] MEDS ORDERED: DUONEB 0.5-3(2.53 ML HHN (18:17)
[2017-11-21] MEDS ORDERED: GLUCOPHAGE500 MG ORAL (18:22)
[2017-11-21] MEDS ORDERED: MAGNESIUM OXID400 M1 ORAL (18:23)
[2017-11-21] MEDS ORDERED: FAMOTIDINE20 MG ORAL (18:24)
[2017-11-21 18:40] LABS: BASOPHILS % (AUTO) 0.7 % (0.0-2.0); EOSINOPHILS % (AUTO) 0.7 % (0.0-3.0); HEMATOCRIT 38.4 % (37.0-47.0); HEMOGLOBIN 11.7 G/DL (12.0-16.0); LYMPHOCYTES % (AUTO) 27.3 % (20.0-45.0); MEAN CORPUSCULAR VOLUME 91 FL (80-99); MONOCYTES % (AUTO) 8.3 % (1.0-10.0); PLATELET COUNT 229 K/UL (150-450); RED BLOOD COUNT 4.21 M/UL (4.20-5.40); RED CELL DISTRIBUTION WIDTH 14.3 % (11.6-14.8); WHITE BLOOD COUNT 12.8 K/UL (4.8-10.8)
[2017-11-21 18:44] LABS: ANION GAP 6 mmol/L (5-15); BLOOD UREA NITROGEN 26 mg/dL (7-18); CARBON DIOXIDE 36 MMOL/L (21-32); CHLORIDE 97 MMOL/L (98-107); CREATININE 1.1 MG/DL (0.55-1.30); SODIUM 139 MMOL/L (136-145)
[2017-11-21] MEDS ORDERED: Norco 5mg/325mg tab ORAL ONE (18:45)
[2017-11-21 18:59] LABS: ALANINE AMINOTRANSFERASE 15 U/L (12-78); ALBUMIN 2.8 G/DL (3.4-5.0); ALBUMIN/GLOBULIN RATIO 0.7 (1.0-2.7); ALKALINE PHOSPHATASE 62 U/L (46-116); ASPARTATE AMINO TRANSFERASE 20 U/L (15-37); BILIRUBIN,TOTAL 0.4 MG/DL (0.2-1.0); CREATINE KINASE 37 U/L (26-308)
[2017-11-21 19:01] LABS: APPEARANCE,URINE CLEAR; BILIRUBIN, URINE NEGATIVE (NEGATIVE); COLOR,URINE PALE YELLOW; GLUCOSE, URINE (UA) NEGATIVE (NEGATIVE); KETONES,URINE NEGATIVE (NEGATIVE); LEUKOCYTE ESTERASE ,URINE 3+ (NEGATIVE); NITRITE,URINE POSITIVE (NEGATIVE); PH,URINE 7 (4.5-8.0); PROTEIN,URINE 1+ (NEGATIVE); UROBILINOGEN,URINE NORMAL MG/DL (0.0-1.0)
[2017-11-21 19:15] VITALS: BP 137/90
[2017-11-21] MEDS ORDERED: cefTRIAXone 1 GM in NS 55 ML IVPB ONE (20:00)
[2017-11-21] MEDS ORDERED: Ipratropium 0.02% Inh Soln 2.5ml UD HHN ONE (20:00)
[2017-11-21] MEDS ORDERED: Albuterol ud Inhalation HHN ONE (20:00)
[2017-11-21] MEDS ORDERED: KEFLEX500 MG ORAL (20:45)
[2017-11-21 22:05] VITALS: BP 120/88
--- NOTE | 2017-11-21 22:07 | Emergency Room Report ---
History of Present Illness General Chief Complaint: Upper Respiratory Illness Source: Patient, Family Member Present Illness HPI 87-year-old female presents ED for evaluation. Daughter at bedside states the patient is experiencing a cough times one week. Has history of COPD. Afebrile. Denies chest pain shortness breath. Patient resides in [facility]. Daughter agreed relieving factors. Denies any other associated symptoms Allergies: Coded Allergies: No Known Allergies (Unverified , 02/17/16) Patient History Past Medical History: HTN, COPD, CVA/TIA Past Surgical History: none Pertinent Family History: none Social History: Denies: smoking, alcohol use, drug use Now: No Immunizations: UTD Reviewed Nursing Documentation: PMH: Agreed, PSxH: Agreed Nursing Documentation-PMH Hx Cardiac Problems: Yes Hx Hypertension: Yes Hx COPD: Yes Hx Cancer: No Hx Gastrointestinal Problems: Yes Hx Neurological Problems: Yes Hx Cerebrovascular Accident: Yes Review of Systems All Other Systems: negative except mentioned in HPI Physical Exam Vital Signs Date Time Temp Pulse Resp B/P (MAP) Pulse Ox O2 Delivery O2 Flow Rate FiO2 11/21/17 17:41 98.2 100 20 101/65 93 Nasal Cannula 3.0 11/21/17 20:06 32 Sp02 EP Interpretation: reviewed, normal General Appearance: no apparent distress, alert, GCS 15, non-toxic Head: normocephalic, atraumatic Eyes: bilateral eye normal inspection, bilateral eye PERRL ENT: hearing grossly normal, normal pharynx, no angioedema, normal voice Neck: full range of motion, supple/symm/no masses Respiratory: chest non-tender, lungs clear, normal breath sounds, speaking full sentences Cardiovascular #1: regular rate, rhythm, no edema Cardiovascular #2: 2+ carotid (R), 2+ carotid (L), 2+ radial (R), 2+ radial (L) , 2+ dorsalis pedis (R), 2+ dorsalis pedis (L) Gastrointestinal: normal bowel sounds, non tender, soft, non-distended, no guarding, no rebound Rectal: deferred Genitourinary: normal inspection, no CVA tenderness Musculoskeletal: back normal, gait/station normal, normal range of motion, non- tender Neurologic: alert, oriented x3, responsive, motor strength/tone normal, sensory intact, speech normal Psychiatric: judgement/insight normal, memory normal, mood/affect normal, no suicidal/homicidal ideation Reflexes: 3+ bicep (R), 3+ bicep (L), 3+ tricep (R), 3+ tricep (L), 3+ knee (R) , 3+ knee (L) Skin: normal color, no rash, warm/dry, well hydrated Lymphatic: no adenopathy Medical Decision Making Diagnostic Impression: Primary Impression: UTI (urinary tract infection) Qualified Codes: N39.0 - Urinary tract infection, site not specified Additional Impression: COPD (chronic obstructive pulmonary disease) Qualified Codes: J44.9 - Chronic obstructive pulmonary disease, unspecified ER Course Hospital Course 87-year-old female presenting with cough times one week Differential diagnoses include: URI, bronchitis, asthma/COPD, pneumonia Clinical course Patient placed on stretcher. After initial history, physical exam reveals an elderly female in no acute distress. Bilateral TM unremarkable. No pharyngeal erythema. No tonsillar exudates. No lymphadenopathy. lungs clear. I ordered labs, IV fluids, EKG, CXR Labs reviewed-leukocytosis noted, hemoglobin/hematocrit stable, electrolytes okay, lactic acid ok, BNP ok, UA + bacteria, influenza negative Chest x-ray shows cardiomegaly, effusion EKG- NSR, no acute ischemic changes interpreted by me Given nebulizer treatment. given Lasix. Given antibiotics. Family and patient want to be discharged back to facility. I discussed findings with PMD Dr. Saucedo and he agrees with plan Diagnosis - UTI, COPD Stable and discharged home with prescriptions for Keflex. Instructed to followup with PMD. Return to ED if symptoms recur or worsen Labs Test 11/21/17 18:10 11/21/17 18:50 White Blood Count 12.8 K/UL (4.8-10.8) Red Blood Count 4.21 M/UL (4.20-5.40) Hemoglobin 11.7 G/DL (12.0-16.0) Hematocrit 38.4 % (37.0-47.0) Mean Corpuscular Volume 91 FL (80-99) Mean Corpuscular Hemoglobin 27.7 PG (27.0-31.0) Mean Corpuscular Hemoglobin Concent 30.4 G/DL (32.0-36.0) Red Cell Distribution Width 14.3 % (11.6-14.8) Platelet Count 229 K/UL (150-450) Mean Platelet Volume 5.0 FL (6.5-10.1) Neutrophils (%) (Auto) 63.0 % (45.0-75.0) Lymphocytes (%) (Auto) 27.3 % (20.0-45.0) Monocytes (%) (Auto) 8.3 % (1.0-10.0) Eosinophils (%) (Auto) 0.7 % (0.0-3.0) Basophils (%) (Auto) 0.7 % (0.0-2.0) Sodium Level 139 MMOL/L (136-145) Potassium Level 4.0 MMOL/L (3.5-5.1) Chloride Level 97 MMOL/L (98-107) Carbon Dioxide Level 36 MMOL/L (21-32) Anion Gap 6 mmol/L (5-15) Blood Urea Nitrogen 26 mg/dL (7-18) Creatinine 1.1 MG/DL (0.55-1.30) Estimat Glomerular Filtration Rate mL/min (>60) Glucose Level 117 MG/DL (74-106) Lactic Acid Level 1.70 mmol/L (0.66-2.22) Calcium Level 9.0 MG/DL (8.5-10.1) Total Bilirubin 0.4 MG/DL (0.2-1.0) Aspartate Amino Transf (AST/SGOT) 20 U/L (15-37) Alanine Aminotransferase (ALT/SGPT) 15 U/L (12-78) Alkaline Phosphatase 62 U/L (46-116) Total Creatine Kinase 37 U/L (26-308) Creatine Kinase MB 1.0 NG/ML (0.0-3.6) Creatine Kinase MB Relative Index 2.7 Troponin I 0.000 ng/mL (0.000-0.056) Pro-B-Type Natriuretic Peptide 299 pg/mL (0-125) Total Protein 7.1 G/DL (6.4-8.2) Albumin 2.8 G/DL (3.4-5.0) Globulin 4.3 g/dL Albumin/Globulin Ratio 0.7 (1.0-2.7) Urine Color Pale yellow Urine Appearance Clear Urine pH 7 (4.5-8.0) Urine Specific [place] 1.010 (1.005-1.035) Urine Protein 1+ (NEGATIVE) Urine Glucose (UA) Negative (NEGATIVE) Urine Ketones Negative (NEGATIVE) Urine Occult Blood 1+ (NEGATIVE) Urine Nitrite Positive (NEGATIVE) Urine Bilirubin Negative (NEGATIVE) Urine Urobilinogen Normal MG/DL (0.0-1.0) Urine Leukocyte Esterase 3+ (NEGATIVE) Urine RBC 2-4 /HPF (0 - 2) Urine WBC 5-10 /HPF (0 - 2) Urine Squamous Epithelial Cells Few /LPF (NONE/OCC) Urine Amorphous Sediment Few /LPF (NONE) Urine Bacteria Many /HPF (NONE) EKG Diagnostic Results Rate: normal Rhythm: NSR ST Segments: no acute changes ASA given to the pt in ED: No Rhythm Strip Diag. Results EP Interpretation: yes Rhythm: NSR, no ectopy Chest X-Ray Diagnostic Results Chest X-Ray Diagnostic Results : Chest X-Ray Ordered: Yes # of Views/Limited/Complete: 1 View Indication: Shortness of Breath EP Interpretation: Yes Interpretation: no pneumothorax, other - cardiomegaly. bilateral effusion Impression: Other - chf Electronically Signed by: Electronically signed by Tristan Barron MD Last Vital Signs Date Time Temp Pulse Resp B/P (MAP) Pulse Ox O2 Delivery O2 Flow Rate FiO2 11/21/17 20:49 97 18 95 Nasal Cannula 3.0 32 11/21/17 19:15 98.7 137/90 Status: improved Disposition: XFER SNF Condition: Stable Scripts Cephalexin* (KEFLEX*) 500 Mg Capsule 500 MG ORAL Q6H, #28 CAP 0 Refills Prov: TRISTAN BARRON M.D. 11/21/17 Patient Instructions: Dysuria TRISTAN BARRON M.D. Nov 21, 2017 22:07
[2017-11-21 22:10] VITALS: BP 120/88
--- NOTE | 2017-11-22 13:21 | Cardiology Report ---
APPROVED REPORT EKG Measurement Heart [id number] 130P29 [id number] Sinus tachycardia with occasional premature ventricular complexes Left anterior fascicular block Abnormal ECG
--- NOTE | 2017-11-22 16:29 | Diagnostic Imaging Report ---
Indication: Shortness of breath Technique: XRAY Chest 1v Comparison: 04/21/2017 Findings: Stable cardiomegaly. Atherosclerotic calcifications noted in the ectatic and tortuous aorta. There is interstitial opacification/edema. There patchy bilateral airspace opacities with retrocardiac and right medial basilar opacities. There is no pleural effusion. No pneumothorax. There is osteopenia, scoliosis and multilevel degenerative change of the spine. Impression: Cardiomegaly with interstitial opacification/edema and patchy bilateral airspace opacities. Findings may be related to fluid overload/CHF. Pneumonia is not entirely excluded. Clinical correlation and follow-up exam recommended. This is slightly discrepant from the preliminary interpretation of the treating ER clinician as documented in the electronic medical record. Findings discussed with Dr. Baxter of the ER on 11/22/2017.
== END 2017-11-21 22:10 ==
LOC: EDBD 17:36 → EMR 18:00
DX: N39.0 Urinary tract infection, site not specified (principal); J44.9 Chronic obstructive pulmonary disease, unspecified; I10 Essential (primary) hypertension; Z86.73 Personal history of transient ischemic attack (TIA), and cerebral infarction without residual deficits
CPT/HCPCS: 36415; 71045; 80053; 81003; 82550; 82553; 83605; 83880; 84484; 85025; 86710; 87040; 87081; 87086; 87181; 93005; 94640; 94664; 96361; 96365; 96375; 99284; J0696; J1940; J7040

== ENCOUNTER 2017-11-23 21:41 | Inpatient (IN) | payer MEDICARE, MEDICAID ==
[~2017-11-23] VITALS: Ht 162.6 cm; Wt 63.5 kg
[~2017-11-23 21:41] MED LIST changes: +FAMOTIDINE20 MG ORAL; +GLUCOPHAGE500 MG ORAL; +KEFLEX500 MG ORAL; +MAGNESIUM OXID400 M1 ORAL
--- NOTE | 2017-11-23 21:55 | Emergency Room Report ---
History of Present Illness General Chief Complaint: Vomiting Source: Patient, Medical Record, EMS Present Illness HPI Is an 87-year-old female coming from a snf. She is a DO NOT RESUSCITATE. She has a history of GI bleed in the past. She present with chief complaint of nausea vomiting started tonight. Vomiting is dark and questionable coffee ground emesis. No diarrhea. She is incontinence however. No fever or chills. No abdominal pain. Similar symptom in the past. Allergies: Coded Allergies: No Known Allergies (Unverified , 02/17/16) Patient History Past Medical History: see triage record, old chart reviewed, ulcer, GI bleed Past Surgical History: other Pertinent Family History: none Social History: Denies: smoking Now: No Immunizations: other Reviewed Nursing Documentation: PMH: Agreed, PSxH: Agreed Nursing Documentation-PMH Past Medical History: No History, Except For Hx Cardiac Problems: Yes - CHF, Hyperlipidemia, Anemia, Angina Hx Hypertension: Yes Hx COPD: Yes - Resp. failure Hx Cancer: No Hx Gastrointestinal Problems: Yes - GI bleed, Dysphagia, GERD, Diverticulosis, Sepsis Hx Neurological Problems: Yes - Osteoarthritis Hx Cerebrovascular Accident: Yes Review of Systems Eye: Denies: eye pain, blurred vision ENT: Denies: ear pain, nose congestion, throat swelling Respiratory: Denies: cough, shortness of breath Cardiovascular: Denies: chest pain, palpitations Gastrointestinal: Reports: abdominal pain, nausea, vomiting, Denies: diarrhea Musculoskeletal: Denies: back pain, joint pain Skin: Denies: rash Neurological: Denies: headache, numbness Endocrine: Denies: increased thirst, increased urine Hematologic/Lymphatic: Denies: easy bruising All Other Systems: negative except mentioned in HPI Physical Exam Vital Signs Date Time Temp Pulse Resp B/P (MAP) Pulse Ox O2 Delivery O2 Flow Rate FiO2 11/23/17 21:43 97.2 123 18 143/90 92 Nasal Cannula 3.0 vitals with tachycardia and hypoxia Sp02 EP Interpretation: abnormal General Appearance: mild distress Head: normocephalic, atraumatic Eyes: bilateral eye PERRL, bilateral eye EOMI ENT: hearing grossly normal, normal pharynx Neck: full range of motion, supple, no meningismus Respiratory: chest non-tender, lungs clear, normal breath sounds Cardiovascular #1: regular rate, rhythm, no murmur Gastrointestinal: normal bowel sounds, non tender, no mass, no organomegaly, no bruit, non-distended Musculoskeletal: back normal, normal range of motion Neurologic: alert Psychiatric: mood/affect normal Skin: warm/dry Medical Decision Making Diagnostic Impression: Primary Impression: Vomiting Qualified Codes: R11.2 - Nausea with vomiting, unspecified Additional Impressions: Pneumonia Qualified Codes: J18.9 - Pneumonia, unspecified organism GI bleed Qualified Codes: K92.2 - Gastrointestinal hemorrhage, unspecified HTN (hypertension) Qualified Codes: I10 - Essential (primary) hypertension ER Course This patient presents with a GI bleed. We'll go is stable. Per Dr. Snow she was discharged with Keflex for UTI. Receive a call that she may have pneumonia and started on Levaquin. He asked that patient did Levaquin here. Will admit for monitoring. No evidence of perforation. Laboratory Tests Test 11/23/17 22:40 White Blood Count 12.6 K/UL (4.8-10.8) H Red Blood Count 4.66 M/UL (4.20-5.40) Hemoglobin 13.1 G/DL (12.0-16.0) Hematocrit 42.8 % (37.0-47.0) Mean Corpuscular Volume 92 FL (80-99) Mean Corpuscular Hemoglobin 28.2 PG (27.0-31.0) Mean Corpuscular Hemoglobin Concent 30.6 G/DL (32.0-36.0) L Red Cell Distribution Width 14.1 % (11.6-14.8) Platelet Count 344 K/UL (150-450) Mean Platelet Volume 4.7 FL (6.5-10.1) L Neutrophils (%) (Auto) 80.4 % (45.0-75.0) H Lymphocytes (%) (Auto) 12.1 % (20.0-45.0) L Monocytes (%) (Auto) 7.0 % (1.0-10.0) Eosinophils (%) (Auto) 0.0 % (0.0-3.0) Basophils (%) (Auto) 0.5 % (0.0-2.0) Prothrombin Time 10.2 SEC (9.30-11.50) Prothromb Time International Ratio 1.0 (0.9-1.1) Activated Partial Thromboplast Time 24 SEC (23-33) Sodium Level 140 MMOL/L (136-145) Potassium Level 3.3 MMOL/L (3.5-5.1) L Chloride Level 96 MMOL/L (98-107) L Carbon Dioxide Level 39 MMOL/L (21-32) H Anion Gap 5 mmol/L (5-15) Blood Urea Nitrogen 23 mg/dL (7-18) H Creatinine 0.9 MG/DL (0.55-1.30) Estimat Glomerular Filtration Rate mL/min (>60) Glucose Level 221 MG/DL (74-106) H Calcium Level 9.5 MG/DL (8.5-10.1) Total Bilirubin 0.5 MG/DL (0.2-1.0) Aspartate Amino Transf (AST/SGOT) 21 U/L (15-37) Alanine Aminotransferase (ALT/SGPT) 23 U/L (12-78) Alkaline Phosphatase 74 U/L (46-116) Troponin I 0.017 ng/mL (0.000-0.056) Total Protein 7.9 G/DL (6.4-8.2) Albumin 3.2 G/DL (3.4-5.0) L Globulin 4.7 g/dL Albumin/Globulin Ratio 0.7 (1.0-2.7) L Lipase 218 U/L (73-393) Lab Results Impression labs unremarkable Chest X-Ray Diagnostic Results Chest X-Ray Diagnostic Results : Chest X-Ray Ordered: Yes # of Views/Limited/Complete: 1 View Indication: Shortness of Breath EP Interpretation: Yes Interpretation: no effusion, no pneumothorax, no acute cardiopulmonary disease Impression: No acute disease Electronically Signed by: Abimael Cartwright MD Last Vital Signs Date Time Temp Pulse Resp B/P (MAP) Pulse Ox O2 Delivery O2 Flow Rate FiO2 11/23/17 21:43 97.2 123 18 143/90 92 Nasal Cannula 3.0 Status: improved Disposition: ADMITTED INPATIENT Condition: Serious ABIMAEL CARTWRIGHT M.D. Nov 23, 2017 21:55
[2017-11-23] MEDS ORDERED: Pantoprazole Inj IV ONE (22:00)
[2017-11-23 23:14] LABS: BASOPHILS % (AUTO) 0.5 % (0.0-2.0); HEMATOCRIT 42.8 % (37.0-47.0); HEMOGLOBIN 13.1 G/DL (12.0-16.0); LYMPHOCYTES % (AUTO) 12.1 % (20.0-45.0); MEAN CORPUSCULAR VOLUME 92 FL (80-99); NEUTROPHILS % (AUTO) 80.4 % (45.0-75.0); PLATELET COUNT 344 K/UL (150-450); RED BLOOD COUNT 4.66 M/UL (4.20-5.40); RED CELL DISTRIBUTION WIDTH 14.1 % (11.6-14.8); WHITE BLOOD COUNT 12.6 K/UL (4.8-10.8)
[2017-11-23 23:23] LABS: ANION GAP 5 mmol/L (5-15); BLOOD UREA NITROGEN 23 mg/dL (7-18); CALCIUM 9.5 MG/DL (8.5-10.1); CARBON DIOXIDE 39 MMOL/L (21-32); CHLORIDE 96 MMOL/L (98-107); CREATININE 0.9 MG/DL (0.55-1.30); POTASSIUM 3.3 MMOL/L (3.5-5.1); SODIUM 140 MMOL/L (136-145)
[2017-11-23 23:28] LABS: ALANINE AMINOTRANSFERASE 23 U/L (12-78); ALBUMIN 3.2 G/DL (3.4-5.0); ALBUMIN/GLOBULIN RATIO 0.7 (1.0-2.7); ALKALINE PHOSPHATASE 74 U/L (46-116); ASPARTATE AMINO TRANSFERASE 21 U/L (15-37); BILIRUBIN,TOTAL 0.5 MG/DL (0.2-1.0)
[2017-11-24] VITALS (8 sets, daily range): BP systolic 95–155; BP diastolic 54–98
[2017-11-24] MEDS ORDERED: Norco 5mg/325mg tab ORAL ONE
[2017-11-24 00:34] LABS: APPEARANCE,URINE SLIGHTLY CLOUDY; BILIRUBIN, URINE NEGATIVE (NEGATIVE); COLOR,URINE PALE YELLOW; GLUCOSE, URINE (UA) NEGATIVE (NEGATIVE); KETONES,URINE 2+ (NEGATIVE); LEUKOCYTE ESTERASE ,URINE 1+ (NEGATIVE); NITRITE,URINE NEGATIVE (NEGATIVE); PH,URINE 8 (4.5-8.0); PROTEIN,URINE 2+ (NEGATIVE); UROBILINOGEN,URINE NORMAL MG/DL (0.0-1.0)
[2017-11-24] MEDS ORDERED: Hydromorphone 0.5mg/0.5ml inj IVP PRN ×2 (02:00→18:00)
[2017-11-24] MEDS ORDERED: cefTRIAXone 1 GM in NS 55 ML IVPB ONE (02:30)
[2017-11-24] MEDS ORDERED: D5 1/2NS w/KCl 40meq 1000ml 1,000 ML IV SCH ×2 (03:30→18:00)
[2017-11-24 06:16] LABS: BASOPHILS % (AUTO) 0.5 % (0.0-2.0); EOSINOPHILS % (AUTO) 0.1 % (0.0-3.0); HEMATOCRIT 34.5 % (37.0-47.0); HEMOGLOBIN 11.4 G/DL (12.0-16.0); LYMPHOCYTES % (AUTO) 14.8 % (20.0-45.0); MEAN CORPUSCULAR VOLUME 92 FL (80-99); MONOCYTES % (AUTO) 9.2 % (1.0-10.0); NEUTROPHILS % (AUTO) 75.5 % (45.0-75.0); PLATELET COUNT 256 K/UL (150-450); RED BLOOD COUNT 3.76 M/UL (4.20-5.40); WHITE BLOOD COUNT 11.4 K/UL (4.8-10.8)
[2017-11-24 06:43] LABS: ALANINE AMINOTRANSFERASE 20 U/L (12-78); ALBUMIN 2.6 G/DL (3.4-5.0); ALBUMIN/GLOBULIN RATIO 0.6 (1.0-2.7); ALKALINE PHOSPHATASE 57 U/L (46-116); ANION GAP 5 mmol/L (5-15); ASPARTATE AMINO TRANSFERASE 23 U/L (15-37); BILIRUBIN,TOTAL 0.2 MG/DL (0.2-1.0); BLOOD UREA NITROGEN 23 mg/dL (7-18); CALCIUM 8.4 MG/DL (8.5-10.1); CARBON DIOXIDE 36 MMOL/L (21-32); CHLORIDE 100 MMOL/L (98-107); CHOLESTEROL 119 MG/DL (< 200); CREATINE KINASE 38 U/L (26-308); CREATININE 0.9 MG/DL (0.55-1.30); GAMMA GLUTAMYL TRANSPEPTIDASE 19 U/L (5-85); HDL CHOLESTEROL 45 MG/DL (40-60); POTASSIUM 3.2 MMOL/L (3.5-5.1); SODIUM 140 MMOL/L (136-145); TRIGLYCERIDES 165 MG/DL (30-150)
[2017-11-24] MEDS: Albuterol ud Inhalation HHN SCH ×4 (07:00→19:00)
[2017-11-24] MEDS: Heparin 5000 units/ml inj SUBQ SCH ×2 (09:00→09:48)
[2017-11-24] MEDS ORDERED: Piperacillin/Tazobactam 3.375 GM in NS 110 ML IVPB SCH (09:00)
[2017-11-24] MEDS ORDERED: Pantoprazole Inj IVP SCH ×2 (09:00→21:00)
--- NOTE | 2017-11-24 10:13 | Consultation ---
History of Present Illness General Date patient seen: Nov 24, 2017 Chief Complaint: Vomiting Reason for Consultation: pneumonia Present Illness HPI 87-year-old female with hx CVA, COPD, CHF GI bleed in the past. She present with chief complaint of nausea vomiting started tonight. Vomiting is dark and questionable coffee ground emesis. No diarrhea. No fever or chills. No abdominal pain. Her CXR showed RLL atelectasis/ infiltrate. she is admitted to telemetry for further management. Allergies: Coded Allergies: No Known Allergies (Unverified , 02/17/16) Medication History Scheduled Atorvastatin Calcium* (Atorvastatin Calcium*), 40 MG ORAL BEDTIME, (Reported) Cephalexin* (Keflex*), 500 MG ORAL Q6H Cholecalciferol (Vitamin D3)* (Vitamin D*), 1,000 UNIT ORAL DAILY, (Reported) Clopidogrel* (Clopidogrel*), 75 MG ORAL DAILY, (Reported) Docusate Sodium* (Colace*), 100 MG ORAL THREE TIMES A DAY Famotidine (Famotidine), 20 MG ORAL TWICE A DAY, (Reported) Furosemide* (Lasix*), 40 MG ORAL DAILY, (Reported) Ipratropium/Albuterol Sulfate (DuoNeb 0.5-3(2.5)mg/3ml), 3 ML HHN FOUR TIMES A DAY, (Reported) Magnesium Oxide (Magnesium Oxide), 400 MG ORAL THREE TIMES A DAY, (Reported) Metformin Hcl* (Glucophage*), 250 MG ORAL BEFORE MEALS, (Reported) Multivitamin With Minerals (Multivitamins With Minerals*), 1 TAB ORAL DAILY, ( Reported) Scheduled PRN Acetaminophen* (Acetaminophen 325MG Tablet*), 650 MG ORAL Q4H PRN for T>100.5 Hydrocodone Bit/Acetaminophen 5-325* ([place] 5-325*), 1 TAB ORAL Q4H PRN for For Pain, (Reported) Discontinued Medications Calcium Carbonate/Vitamin D3 (Calcium 600 + Vit D 200 Tablet), 1 EACH PO DAILY, (Reported) Discontinued Reason: MD discontinued med Hydrocodone Bit/Acetaminophen 5-325* ([place] 5-325 Tablet*), 1 TAB ORAL Q8HR PRN for For Pain, (Reported) Discontinued Reason: Medication dose changed Lactobacillus Rhamnosus Gg* (Culturelle*), 1 TAB ORAL THREE TIMES A DAY Discontinued Reason: MD discontinued med Lisinopril* (Lisinopril*), 10 MG ORAL DAILY, (Reported) Discontinued Reason: MD discontinued med Mirabegron (Myrbetriq), 50 MG PO DAILY, (Reported) Discontinued Reason: MD discontinued med Oxybutynin (Oxytrol), 1 EACH TD DAILY, (Reported) Discontinued Reason: MD discontinued med Pantoprazole* (Protonix*), 40 MG ORAL EVERY 12 HOURS Discontinued Reason: MD discontinued med Potassium Chloride* (K-Dur*), 20 MEQ ORAL DAILY, (Reported) Discontinued Reason: MD discontinued med Prednisone* (Prednisone*), 25 MG ORAL DAILY Discontinued Reason: MD discontinued med Prednisone* (Prednisone*), 30 MG ORAL DAILY Discontinued Reason: MD discontinued med Tramadol Hcl* (Ultram*), 50 MG ORAL Q6H PRN for For Pain, (Reported) Discontinued Reason: Pt had allergic rxn Trimethoprim/Sulfamethoxazole (Bactrim Ds Tablet), 1 EA ORAL TWICE A DAY Discontinued Reason: Therapy completed Patient History Healthcare decision maker Resuscitation status Advanced Directive on File No Past Medical/Surgical History Past Medical/Surgical History: (1) COPD (chronic obstructive pulmonary disease) (2) HTN (hypertension) (3) Anemia (4) CAD (coronary artery disease) Review of Systems Constitutional: Reports: malaise, weakness Gastrointestinal: Reports: hematemesis All Other Systems: negative except mentioned in HPI Physical Exam General Appearance: WD/WN Lines, tubes and drains: peripheral HEENT: normocephalic, atraumatic, anicteric Neck: non-tender, normal alignment Respiratory/Chest: chest wall non-tender, lungs clear, rhonchi - left, stridor Breasts: no masses Cardiovascular/Chest: normal peripheral pulses, regular rhythm Abdomen: normal bowel sounds, non tender Genitourinary/Rectal: normal genital exam, heme negative stool Extremities: normal range of motion 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 grossly normal, no motor/sensory deficits Last 24 Hour Vital Signs Date Time Temp Pulse Resp B/P (MAP) Pulse Ox O2 Delivery O2 Flow Rate FiO2 11/24/17 07:35 97.4 115 20 128/81 97 Nasal Cannula 3.0 11/24/17 06:53 97.4 115 20 128/81 97 Nasal Cannula 3.0 11/24/17 06:10 97.6 11/24/17 05:11 97.6 109 16 126/98 97 Nasal Cannula 3.0 11/24/17 03:30 98.2 115 14 106/90 95 Nasal Cannula 3.0 11/24/17 02:22 97.2 11/24/17 00:06 97.2 117 18 155/92 96 Nasal Cannula 3.0 11/23/17 21:43 97.2 123 18 143/90 92 Nasal Cannula 3.0 Intake and Output 11/23/17 11/24/17 19:00 07:00 Intake Total 200 ml Output Total 800 ml Balance -600 ml Intake Oral 200 ml Output Urine Total 800 ml Laboratory Tests Test 11/23/17 22:40 11/24/17 00:19 11/24/17 05:57 White Blood Count 12.6 K/UL (4.8-10.8) H 11.4 K/UL (4.8-10.8) H Red Blood Count 4.66 M/UL (4.20-5.40) 3.76 M/UL (4.20-5.40) L Hemoglobin 13.1 G/DL (12.0-16.0) 11.4 G/DL (12.0-16.0) L Hematocrit 42.8 % (37.0-47.0) 34.5 % (37.0-47.0) L Mean Corpuscular Volume 92 FL (80-99) 92 FL (80-99) Mean Corpuscular Hemoglobin 28.2 PG (27.0-31.0) 30.2 PG (27.0-31.0) Mean Corpuscular Hemoglobin Concent 30.6 G/DL (32.0-36.0) L 32.9 G/DL (32.0-36.0) Red Cell Distribution Width 14.1 % (11.6-14.8) 14.0 % (11.6-14.8) Platelet Count 344 K/UL (150-450) 256 K/UL (150-450) Mean Platelet Volume 4.7 FL (6.5-10.1) L 5.1 FL (6.5-10.1) L Neutrophils (%) (Auto) 80.4 % (45.0-75.0) H 75.5 % (45.0-75.0) H Lymphocytes (%) (Auto) 12.1 % (20.0-45.0) L 14.8 % (20.0-45.0) L Monocytes (%) (Auto) 7.0 % (1.0-10.0) 9.2 % (1.0-10.0) Eosinophils (%) (Auto) 0.0 % (0.0-3.0) 0.1 % (0.0-3.0) Basophils (%) (Auto) 0.5 % (0.0-2.0) 0.5 % (0.0-2.0) Prothrombin Time 10.2 SEC (9.30-11.50) Prothromb Time International Ratio 1.0 (0.9-1.1) Activated Partial Thromboplast Time 24 SEC (23-33) Sodium Level 140 MMOL/L (136-145) 140 MMOL/L (136-145) Potassium Level 3.3 MMOL/L (3.5-5.1) L 3.2 MMOL/L (3.5-5.1) L Chloride Level 96 MMOL/L (98-107) L 100 MMOL/L (98-107) Carbon Dioxide Level 39 MMOL/L (21-32) H 36 MMOL/L (21-32) H Anion Gap 5 mmol/L (5-15) 5 mmol/L (5-15) Blood Urea Nitrogen 23 mg/dL (7-18) H 23 mg/dL (7-18) H Creatinine 0.9 MG/DL (0.55-1.30) 0.9 MG/DL (0.55-1.30) Estimat Glomerular Filtration Rate mL/min (>60) mL/min (>60) Glucose Level 221 MG/DL (74-106) H 165 MG/DL (74-106) H Calcium Level 9.5 MG/DL (8.5-10.1) 8.4 MG/DL (8.5-10.1) L Total Bilirubin 0.5 MG/DL (0.2-1.0) 0.2 MG/DL (0.2-1.0) Aspartate Amino Transf (AST/SGOT) 21 U/L (15-37) 23 U/L (15-37) Alanine Aminotransferase (ALT/SGPT) 23 U/L (12-78) 20 U/L (12-78) Alkaline Phosphatase 74 U/L (46-116) 57 U/L (46-116) Troponin I 0.017 ng/mL (0.000-0.056) 0.029 ng/mL (0.000-0.056) Total Protein 7.9 G/DL (6.4-8.2) 6.7 G/DL (6.4-8.2) Albumin 3.2 G/DL (3.4-5.0) L 2.6 G/DL (3.4-5.0) L Globulin 4.7 g/dL 4.1 g/dL Albumin/Globulin Ratio 0.7 (1.0-2.7) L 0.6 (1.0-2.7) L Lipase 218 U/L (73-393) Urine Color Pale yellow Urine Appearance Slightly cloudy Urine pH 8 (4.5-8.0) Urine Specific [place] 1.015 (1.005-1.035) Urine Protein 2+ (NEGATIVE) H Urine Glucose (UA) Negative (NEGATIVE) Urine Ketones 2+ (NEGATIVE) H Urine Occult Blood 2+ (NEGATIVE) H Urine Nitrite Negative (NEGATIVE) Urine Bilirubin Negative (NEGATIVE) Urine Urobilinogen Normal MG/DL (0.0-1.0) Urine Leukocyte Esterase 1+ (NEGATIVE) H Urine RBC 5-10 /HPF (0 - 2) H Urine WBC 2-4 /HPF (0 - 2) Urine Squamous Epithelial Cells Few /LPF (NONE/OCC) Urine Amorphous Sediment Few /LPF (NONE) H Urine Bacteria Moderate /HPF (NONE) H Hemoglobin A1c 7.0 % (4.3-6.0) H Phosphorus Level 3.0 MG/DL (2.5-4.9) Magnesium Level 1.7 MG/DL (1.8-2.4) L Gamma Glutamyl Transpeptidase 19 U/L (5-85) Total Creatine Kinase 38 U/L (26-308) Pro-B-Type Natriuretic Peptide 1708 pg/mL (0-125) H Triglycerides Level 165 MG/DL (30-150) H Cholesterol Level 119 MG/DL (< 200) LDL Cholesterol 59 mg/dL (<100) HDL Cholesterol 45 MG/DL (40-60) Cholesterol/HDL Ratio 2.6 (3.3-4.4) L Thyroid Stimulating Hormone (TSH) 1.562 uiU/mL (0.358-3.740) Height (Feet): 5 Height (Inches): 4.00 Weight (Pounds): 140 Medications Current Medications Medications (Trade) Dose Ordered Sig/Meera Route PRN Reason Start Time Stop Time Status Last Admin Dose Admin Albuterol Sulfate (Proventil) 2.5 mg QIDRT HHN 11/24/17 07:00 11/29/17 06:59 Dextrose/ Electrolytes 1,000 ml @ 50 mls/hr Q20H IV 11/24/17 03:30 12/24/17 03:29 11/24/17 09:45 Heparin Sodium (Porcine) (Heparin 5000 units/ml) 5,000 units EVERY 12 HOURS SUBQ 11/24/17 09:00 12/24/17 08:59 11/24/17 09:48 Hydromorphone HCl (Dilaudid) 0.5 mg Q4H PRN IVP For Pain 11/24/17 02:00 12/01/17 01:59 11/24/17 05:40 Metoclopramide HCl (Reglan) 5 mg Q6H PRN ORAL Nausea & Vomiting 11/24/17 02:15 12/24/17 02:14 Ondansetron HCl (Zofran) 4 mg Q6H PRN IVP nausea, vomit 11/24/17 02:00 12/24/17 01:59 Pantoprazole (Protonix) 40 mg Q12HR IVP 11/24/17 09:00 12/24/17 08:59 11/24/17 09:46 Piperacillin Sod/ Tazobactam Sod 3.375 gm/Sodium Chloride 110 ml @ 27.5 mls/hr Q8H IVPB 11/24/17 09:00 12/01/17 08:59 11/24/17 09:46 Assessment/Plan Problem List: (1) Pneumonia ICD Codes: J18.9 - Pneumonia, unspecified organism SNOMED: 198581220 Qualifiers: Qualified Codes: J18.9 - Pneumonia, unspecified organism (2) GI bleed ICD Codes: K92.2 - Gastrointestinal hemorrhage, unspecified SNOMED: 84975642 Qualifiers: Qualified Codes: K92.2 - Gastrointestinal hemorrhage, unspecified (3) COPD (chronic obstructive pulmonary disease) ICD Codes: J44.9 - Chronic obstructive pulmonary disease, unspecified SNOMED: 20809457 (4) CAD (coronary artery disease) ICD Codes: I25.10 - Atherosclerotic heart disease of [place] coronary artery without angina pectoris SNOMED: 45180775 (5) History of cerebrovascular accident ICD Codes: Z86.73 - Personal history of transient ischemic attack (TIA), and cerebral infarction without residual deficits SNOMED: 957803308 Assessment/Plan respiratory treatment check sputum npo IV abx GI evaluation chest pt SUSIE ROCHA Nov 24, 2017 10:12
--- NOTE | 2017-11-24 11:09 | Diagnostic Imaging Report ---
Indication: Vomiting Technique: XRAY Chest 1v Comparison: 11/21/2017 and 04/21/2017 Findings: Stable cardiomegaly. Atherosclerotic calcifications noted in an ectatic and tortuous aorta. There is interstitial opacification/edema. Linear opacities in the left base may represent atelectasis or scarring. There is persistent opacity in the medial right base which is less dense compared to exam of 11/21/2017. These findings were not seen on exam of 04/21/2017. There is no pleural effusion. No pneumothorax. There is osteopenia and multilevel degenerative change of the spine. Generative changes of the shoulders also noted. Impression: Cardiomegaly with interstitial prominence, possibly chronic. Streaky opacities in the left base may represent scarring or atelectasis. More confluent hazy opacity in the medial right lung is less dense than prior exam, possibly representing improving pneumonia. Study obtained to the emergency department however patient admitted to hospital time of dictation of final report.
--- NOTE | 2017-11-24 13:00 | Infectious Diseases Prog Note ---
Assessment/Plan Problems: (1) HCAP (healthcare-associated pneumonia) Assessment & Plan: with RLL medial infltrates , possible aspiration, joe start vancomycin, cefepime and metronidazol empiric coverage, pending culture results (2) Coag negative Staphylococcus bacteremia Assessment & Plan: grew out of two bottles , will repeat blood culture to confirm , and start vancomycin empiric coverage , pending repeated blood culture (3) UTI (urinary tract infection) Assessment & Plan: with H/O E.coli intermediate to zosyn, will switch zosyn to cefepime empirically pending urine culture results (4) Sepsis Assessment & Plan: due to the above, continue wide spectrum antibiotics coverage pending cultures (5) GI bleeding Assessment & Plan: monitor H/H, transfuse blood as needed, consult GI for endoscopy (6) COPD (chronic obstructive pulmonary disease) Assessment & Plan: continue nebulizer treatment and oxygen, monitor CXR Subjective Allergies: Coded Allergies: No Known Allergies (Unverified , 02/17/16) Objective Vital Signs Last 24 Hour Vital Signs Date Time Temp Pulse Resp B/P (MAP) Pulse Ox O2 Delivery O2 Flow Rate FiO2 11/24/17 12:00 97.0 112 20 123/70 94 Nasal Cannula 2.0 11/24/17 11:12 97 20 94 Nasal Cannula 3.0 32 11/24/17 11:06 97 20 Nasal Cannula 3.0 32 11/24/17 11:04 97 20 93 Nasal Cannula 32 11/24/17 08:00 97.2 110 20 111/73 95 Nasal Cannula 2.0 11/24/17 07:35 97.4 115 20 128/81 97 Nasal Cannula 3.0 11/24/17 06:53 97.4 115 20 128/81 97 Nasal Cannula 3.0 11/24/17 06:10 97.6 11/24/17 05:11 97.6 109 16 126/98 97 Nasal Cannula 3.0 11/24/17 03:30 98.2 115 14 106/90 95 Nasal Cannula 3.0 11/24/17 02:22 97.2 11/24/17 00:06 97.2 117 18 155/92 96 Nasal Cannula 3.0 11/23/17 21:43 97.2 123 18 143/90 92 Nasal Cannula 3.0 Height (Feet): 5 Height (Inches): 4.00 Weight (Pounds): 140 Laboratory Tests Test 11/23/17 22:40 11/24/17 00:19 11/24/17 05:57 White Blood Count 12.6 K/UL (4.8-10.8) H 11.4 K/UL (4.8-10.8) H Red Blood Count 4.66 M/UL (4.20-5.40) 3.76 M/UL (4.20-5.40) L Hemoglobin 13.1 G/DL (12.0-16.0) 11.4 G/DL (12.0-16.0) L Hematocrit 42.8 % (37.0-47.0) 34.5 % (37.0-47.0) L Mean Corpuscular Volume 92 FL (80-99) 92 FL (80-99) Mean Corpuscular Hemoglobin 28.2 PG (27.0-31.0) 30.2 PG (27.0-31.0) Mean Corpuscular Hemoglobin Concent 30.6 G/DL (32.0-36.0) L 32.9 G/DL (32.0-36.0) Red Cell Distribution Width 14.1 % (11.6-14.8) 14.0 % (11.6-14.8) Platelet Count 344 K/UL (150-450) 256 K/UL (150-450) Mean Platelet Volume 4.7 FL (6.5-10.1) L 5.1 FL (6.5-10.1) L Neutrophils (%) (Auto) 80.4 % (45.0-75.0) H 75.5 % (45.0-75.0) H Lymphocytes (%) (Auto) 12.1 % (20.0-45.0) L 14.8 % (20.0-45.0) L Monocytes (%) (Auto) 7.0 % (1.0-10.0) 9.2 % (1.0-10.0) Eosinophils (%) (Auto) 0.0 % (0.0-3.0) 0.1 % (0.0-3.0) Basophils (%) (Auto) 0.5 % (0.0-2.0) 0.5 % (0.0-2.0) Prothrombin Time 10.2 SEC (9.30-11.50) Prothromb Time International Ratio 1.0 (0.9-1.1) Activated Partial Thromboplast Time 24 SEC (23-33) Sodium Level 140 MMOL/L (136-145) 140 MMOL/L (136-145) Potassium Level 3.3 MMOL/L (3.5-5.1) L 3.2 MMOL/L (3.5-5.1) L Chloride Level 96 MMOL/L (98-107) L 100 MMOL/L (98-107) Carbon Dioxide Level 39 MMOL/L (21-32) H 36 MMOL/L (21-32) H Anion Gap 5 mmol/L (5-15) 5 mmol/L (5-15) Blood Urea Nitrogen 23 mg/dL (7-18) H 23 mg/dL (7-18) H Creatinine 0.9 MG/DL (0.55-1.30) 0.9 MG/DL (0.55-1.30) Estimat Glomerular Filtration Rate mL/min (>60) mL/min (>60) Glucose Level 221 MG/DL (74-106) H 165 MG/DL (74-106) H Calcium Level 9.5 MG/DL (8.5-10.1) 8.4 MG/DL (8.5-10.1) L Total Bilirubin 0.5 MG/DL (0.2-1.0) 0.2 MG/DL (0.2-1.0) Aspartate Amino Transf (AST/SGOT) 21 U/L (15-37) 23 U/L (15-37) Alanine Aminotransferase (ALT/SGPT) 23 U/L (12-78) 20 U/L (12-78) Alkaline Phosphatase 74 U/L (46-116) 57 U/L (46-116) Troponin I 0.017 ng/mL (0.000-0.056) 0.029 ng/mL (0.000-0.056) Total Protein 7.9 G/DL (6.4-8.2) 6.7 G/DL (6.4-8.2) Albumin 3.2 G/DL (3.4-5.0) L 2.6 G/DL (3.4-5.0) L Globulin 4.7 g/dL 4.1 g/dL Albumin/Globulin Ratio 0.7 (1.0-2.7) L 0.6 (1.0-2.7) L Lipase 218 U/L (73-393) Urine Color Pale yellow Urine Appearance Slightly cloudy Urine pH 8 (4.5-8.0) Urine Specific [place] 1.015 (1.005-1.035) Urine Protein 2+ (NEGATIVE) H Urine Glucose (UA) Negative (NEGATIVE) Urine Ketones 2+ (NEGATIVE) H Urine Occult Blood 2+ (NEGATIVE) H Urine Nitrite Negative (NEGATIVE) Urine Bilirubin Negative (NEGATIVE) Urine Urobilinogen Normal MG/DL (0.0-1.0) Urine Leukocyte Esterase 1+ (NEGATIVE) H Urine RBC 5-10 /HPF (0 - 2) H Urine WBC 2-4 /HPF (0 - 2) Urine Squamous Epithelial Cells Few /LPF (NONE/OCC) Urine Amorphous Sediment Few /LPF (NONE) H Urine Bacteria Moderate /HPF (NONE) H Hemoglobin A1c 7.0 % (4.3-6.0) H Phosphorus Level 3.0 MG/DL (2.5-4.9) Magnesium Level 1.7 MG/DL (1.8-2.4) L Gamma Glutamyl Transpeptidase 19 U/L (5-85) Total Creatine Kinase 38 U/L (26-308) Pro-B-Type Natriuretic Peptide 1708 pg/mL (0-125) H Triglycerides Level 165 MG/DL (30-150) H Cholesterol Level 119 MG/DL (< 200) LDL Cholesterol 59 mg/dL (<100) HDL Cholesterol 45 MG/DL (40-60) Cholesterol/HDL Ratio 2.6 (3.3-4.4) L Thyroid Stimulating Hormone (TSH) 1.562 uiU/mL (0.358-3.740) Current Medications Medications (Trade) Dose Ordered Sig/Meera Route PRN Reason Start Time Stop Time Status Last Admin Dose Admin Albuterol Sulfate (Proventil) 2.5 mg QIDRT HHN 11/24/17 07:00 11/29/17 06:59 11/24/17 11:04 Dextrose/ Electrolytes 1,000 ml @ 50 mls/hr Q20H IV 11/24/17 03:30 12/24/17 03:29 11/24/17 09:45 Hydromorphone HCl (Dilaudid) 0.5 mg Q4H PRN IVP For Pain 11/24/17 02:00 12/01/17 01:59 11/24/17 05:40 Metoclopramide HCl (Reglan) 5 mg Q6H PRN ORAL Nausea & Vomiting 11/24/17 02:15 12/24/17 02:14 Ondansetron HCl (Zofran) 4 mg Q6H PRN IVP nausea, vomit 11/24/17 02:00 12/24/17 01:59 Pantoprazole (Protonix) 40 mg Q12HR IVP 11/24/17 09:00 12/24/17 08:59 11/24/17 09:46 Piperacillin Sod/ Tazobactam Sod 3.375 gm/Sodium Chloride 110 ml @ 27.5 mls/hr Q8H IVPB 11/24/17 09:00 12/01/17 08:59 11/24/17 09:46 Chani Madrigal M.D. Nov 24, 2017 13:00
--- NOTE | 2017-11-24 13:37 | History & Physical ---
History and Physical History & Physicial - HCAP (healthcare-associated pneumonia) with RLL medial infltrates , possible aspiration, - Coag negative Staphylococcus bacteremia - UTI (urinary tract infection) - Sepsis - GI bleeding - COPD (chronic obstructive pulmonary disease) - CHF - Chronic Pain - s/p Multiple Abdominal Surgeries / Diverticulosis - DNR DNI - DM Plan; NPO IV fluid breathing treatment antibiotics per orders # [id number] PAWAN AZAR Nov 24, 2017 13:37
[2017-11-24] MEDS ORDERED: Cefepime HCl 2 GM in D5W 55 ML IVPB SCH (14:00)
[2017-11-24] MEDS ORDERED: Vancomycin 1250mg/D5W 250ml IVPB ONE (15:00)
[2017-11-24] MEDS: Docusate 100mg cap ORAL SCH ×2 (15:41→15:45)
[2017-11-24] MEDS ORDERED: Magnesium Oxide 400mg tab ORAL SCH ×2 (18:00)
[2017-11-24] MEDS ORDERED: Docusate 100mg cap ORAL SCH (18:00)
[2017-11-24] MEDS: D5 1/2NS w/KCl 40meq 1000ml 1,000 ML IV SCH ×2 (18:30→20:00)
[2017-11-24] MEDS ORDERED: Albuterol ud Inhalation HHN SCH (19:00)
[2017-11-24] MEDS: Hydromorphone 0.5mg/0.5ml inj IVP PRN (22:36)
[2017-11-25] VITALS (7 sets, daily range): BP systolic 97–110; BP diastolic 63–73
[2017-11-25] MEDS: Hydromorphone 0.5mg/0.5ml inj IVP PRN ×5 (05:15→22:39)
[2017-11-25 07:48] LABS: BASOPHILS % (AUTO) 0.5 % (0.0-2.0); EOSINOPHILS % (AUTO) 0.8 % (0.0-3.0); HEMATOCRIT 31.4 % (37.0-47.0); HEMOGLOBIN 10.3 G/DL (12.0-16.0); LYMPHOCYTES % (AUTO) 11.9 % (20.0-45.0); MEAN CORPUSCULAR VOLUME 93 FL (80-99); MONOCYTES % (AUTO) 9.6 % (1.0-10.0); NEUTROPHILS % (AUTO) 77.2 % (45.0-75.0); PLATELET COUNT 220 K/UL (150-450); RED CELL DISTRIBUTION WIDTH 14.3 % (11.6-14.8); WHITE BLOOD COUNT 12.5 K/UL (4.8-10.8)
--- NOTE | 2017-11-25 08:00 | History and Physical Report ---
HISTORY OF PRESENT ILLNESS: The patient is an 87-year-old, a resident of [facility], who came in to our emergency room for vomiting, coffee-ground emesis. The patient is practically bedbound with multiple chronic medical conditions. She was at our emergency room a few nights ago, however, she was discharged on p.o. Keflex for UTI. After initial evaluation, the patient was found to have evidence of pneumonia, most likely aspiration. The patient is being admitted for breathing treatment, antibiotics, and further treatment while the coffee-ground emesis is going to be worked up too. PAST MEDICAL HISTORY: Chronic arthritis, diverticulosis, history of pneumonia and respiratory failure, previous GI bleed, dehydration, hypotension, and hypoxic respiratory failure in the past. She has COPD and CHF. MEDICATIONS: According to the list. PHYSICAL EXAMINATION: VITAL SIGNS: This morning when I evaluated, the patient is afebrile with heart rate of 115, sinus tachycardia, blood pressure 123/80, and respiratory rate of 20. GENERAL: The patient is pale, weak, not in any distress. HEENT: Head is normocephalic. NECK: Full. LUNGS: Poor inspiratory effort. Decreased breath sounds over the bases. HEART: Tachycardic with occasional irregular beats. ABDOMEN: Obese with three different hernias and scars of previous surgery. EXTREMITIES: Over the extremities, the patient has 2 surgical scars over the knee and no edema. LABORATORY RESULTS: White blood cells 12.6, hemoglobin 13.1. Potassium 3.2, glucose 221, albumin 3.2. Urine, 4 WBCs, 1+ leukocyte esterase. Chest x-ray, cardiomegaly, opacities in the left base, and right lung evidence of pneumonitis. IMPRESSION: This is an 87-year-old female who comes in with coffee-ground emesis, has evidence of pneumonia, urinary tract infection, gastrointestinal bleed, history of chronic obstructive pulmonary disease and congestive heart failure, functional quadriplegia, chronic pain, and diabetes mellitus. The patient is Do Not Resuscitate/Do Not Intubate and has multiple abdominal hernias with previous surgeries. PLAN: N.p.o., IV fluid, breathing treatment, and antibiotics. Monitor renal parameters. Oxygen. According to how the patient's condition evolves, we will make the proper changes in our future management. ID consult and Pulmonary consult are also involved. Paresh Krishna Snow DR: PAGE JOB#: [id number] CC:
[2017-11-25] MEDS: Albuterol ud Inhalation HHN SCH ×4 (08:07→19:00)
[2017-11-25 08:47] LABS: PHOSPHORUS 3.5 MG/DL (2.5-4.9)
[2017-11-25 09:03] LABS: ALANINE AMINOTRANSFERASE 18 U/L (12-78); ALBUMIN 2.4 G/DL (3.4-5.0); ALBUMIN/GLOBULIN RATIO 0.7 (1.0-2.7); ALKALINE PHOSPHATASE 50 U/L (46-116); ANION GAP 7 mmol/L (5-15); ASPARTATE AMINO TRANSFERASE 17 U/L (15-37); BILIRUBIN,TOTAL 0.3 MG/DL (0.2-1.0); BLOOD UREA NITROGEN 24 mg/dL (7-18); CALCIUM 8.6 MG/DL (8.5-10.1); CARBON DIOXIDE 29 MMOL/L (21-32); CHLORIDE 103 MMOL/L (98-107); CREATININE 0.9 MG/DL (0.55-1.30); POTASSIUM 3.8 MMOL/L (3.5-5.1); SODIUM 139 MMOL/L (136-145)
[2017-11-25] MEDS: Docusate 100mg cap ORAL SCH ×3 (09:30→18:03)
[2017-11-25] MEDS: Magnesium Oxide 400mg tab ORAL SCH ×3 (09:30→18:03)
--- NOTE | 2017-11-25 10:08 | Diagnostic Imaging Report ---
Indication: Dyspnea Technique: XRAY Chest 1v Comparison: 11/23/2017 Findings: Exam limited due to patient positioning. There is persistent hazy opacity of the right lower lung and streaky opacities at the left base. Haziness of the right lung appears to have increased. No definite pneumothorax. Stable nonspecific interstitial prominence. Heart size and mediastinal contours are stable. There is osteopenia and severe scoliosis. Impression: Limited exam. Right lower lung hazy opacities apparently increased, possibly artifactual given differences in patient positioning.
--- NOTE | 2017-11-25 10:08 | General Progress Note ---
Assessment/Plan Status Narrative This is an 87-year-old female who comes in with coffee-ground emesis, HCAP (healthcare-associated pneumonia) with RLL medial infltrates , possible aspiration, - Coag negative Staphylococcus bacteremia - UTI (urinary tract infection) - Sepsis - GI bleeding Hgb 10.3 stable - COPD (chronic obstructive pulmonary disease) - CHF - Chronic Pain - s/p Multiple Abdominal Surgeries / Diverticulosis - DNR DNI - DM Assessment/Plan Antibiotics- monitor H&H HHN Start PO Lasix and KCl 2D Echo Oxygen low flow per ID and pulm Subjective ROS Limited/Unobtainable: No Constitutional: Reports: malaise Allergies: Coded Allergies: No Known Allergies (Unverified , 02/17/16) Objective Last 24 Hour Vital Signs Date Time Temp Pulse Resp B/P (MAP) Pulse Ox O2 Delivery O2 Flow Rate FiO2 11/25/17 10:01 98.0 11/25/17 08:15 89 20 96 Nasal Cannula 3.0 32 11/25/17 08:07 96 20 95 Nasal Cannula 3.0 32 11/25/17 08:00 98.2 100 22 102/73 100 11/25/17 04:00 98.0 105 18 104/68 93 Nasal Cannula 3.0 11/25/17 00:00 98.3 117 20 97/63 92 Nasal Cannula 11/24/17 21:25 97.3 114 20 95/69 92 Nasal Cannula 3.0 11/24/17 21:19 Nasal Cannula 11/24/17 21:18 Nasal Cannula 11/24/17 16:00 97.3 107 20 112/54 94 Nasal Cannula 2.0 11/24/17 14:40 109 20 94 Nasal Cannula 3.0 32 11/24/17 14:32 106 20 93 Nasal Cannula 3.0 32 11/24/17 12:00 106 11/24/17 12:00 97.0 112 20 123/70 94 Nasal Cannula 2.0 11/24/17 11:12 97 20 94 Nasal Cannula 3.0 32 11/24/17 11:06 97 20 Nasal Cannula 3.0 32 11/24/17 11:04 97 20 93 Nasal Cannula 32 Intake and Output 11/24/17 11/25/17 19:00 07:00 Intake Total 400 ml Output Total 800 ml 500 ml Balance -800 ml -100 ml IV Total 400 ml Output Urine Total 800 ml 500 ml Laboratory Tests 11/25/17 05:45: White Blood Count 12.5H, Red Blood Count 3.40L, Hemoglobin 10.3L, Hematocrit 31.4L, Mean Corpuscular Volume 93, Mean Corpuscular Hemoglobin 30.3, Mean Corpuscular Hemoglobin Concent 32.8, Red Cell Distribution Width 14.3, Platelet Count 220, Mean Platelet Volume 5.2L, Neutrophils (%) (Auto) 77.2H, Lymphocytes (%) (Auto) 11.9L, Monocytes (%) (Auto) 9.6, Eosinophils (%) (Auto) 0.8, Basophils (%) (Auto) 0.5, Sodium Level 139, Potassium Level 3.8, Chloride Level 103, Carbon Dioxide Level 29, Anion Gap 7, Blood Urea Nitrogen 24H, Creatinine 0.9, Estimat Glomerular Filtration Rate , Glucose Level 134H, Uric Acid 8.5H, Calcium Level 8.6, Phosphorus Level 3.5, Magnesium Level 1.8, Total Bilirubin 0.3, Aspartate Amino Transf (AST/SGOT) 17, Alanine Aminotransferase (ALT/SGPT) 18, Alkaline Phosphatase 50, Troponin I 0.011, C-Reactive Protein, Quantitative 2.2H, Pro-B-Type Natriuretic Peptide 676H, Total Protein 6.0L, Albumin 2.4L, Globulin 3.6, Albumin/Globulin Ratio 0.7L Height (Feet): 5 Height (Inches): 4.00 Weight (Pounds): 140 General Appearance: no apparent distress Neck: limited range of motion Cardiovascular: other - variable Respiratory/Chest: decreased breath sounds Abdomen: soft, distended, other - hernias Objective no other change PAWAN AZAR Nov 25, 2017 10:08
--- NOTE | 2017-11-25 12:26 | Cardiology Report ---
APPROVED REPORT EKG Measurement Heart [id number] Sinus tachycardia Left anterior fascicular block Nonspecific ST and T wave abnormality Abnormal ECG
--- NOTE | 2017-11-25 12:48 | Pulmonology Progress Note ---
Assessment/Plan Problems: (1) Pneumonia (2) GI bleed (3) COPD (chronic obstructive pulmonary disease) (4) CAD (coronary artery disease) (5) History of cerebrovascular accident Assessment/Plan respiratory treatment titrate fio2 chest pt check cultures continue abx aspiration precaution dvt prophylaxis Subjective ROS Limited/Unobtainable: No Allergies: Coded Allergies: No Known Allergies (Unverified , 02/17/16) Objective Last 24 Hour Vital Signs Date Time Temp Pulse Resp B/P (MAP) Pulse Ox O2 Delivery O2 Flow Rate FiO2 11/25/17 12:00 97.3 94 21 110/71 95 11/25/17 10:44 89 102/73 11/25/17 10:01 98.0 11/25/17 08:15 89 20 96 Nasal Cannula 3.0 32 11/25/17 08:07 96 20 95 Nasal Cannula 3.0 32 11/25/17 08:00 98.2 100 22 102/73 100 11/25/17 04:00 98.0 105 18 104/68 93 Nasal Cannula 3.0 11/25/17 00:00 98.3 117 20 97/63 92 Nasal Cannula 11/24/17 21:25 97.3 114 20 95/69 92 Nasal Cannula 3.0 11/24/17 21:19 Nasal Cannula 11/24/17 21:18 Nasal Cannula 11/24/17 16:00 97.3 107 20 112/54 94 Nasal Cannula 2.0 11/24/17 14:40 109 20 94 Nasal Cannula 3.0 32 11/24/17 14:32 106 20 93 Nasal Cannula 3.0 32 Intake and Output 11/24/17 11/25/17 19:00 07:00 Intake Total 400 ml Output Total 800 ml 500 ml Balance -800 ml -100 ml IV Total 400 ml Output Urine Total 800 ml 500 ml Objective General Appearance: WD/WN HEENT: normocephalic Respiratory/Chest: chest wall non-tender, lungs clear Breasts: no masses Cardiovascular: normal peripheral pulses Abdomen: normal bowel sounds Extremities: no cyanosis Skin: no lesions Microbiology Date/Time Source Procedure Growth Status 11/24/17 00:19 Urine,Clean Catch Urine Culture - Preliminary Streptococcus Species Resulted Laboratory Tests 11/25/17 05:45: White Blood Count 12.5H, Red Blood Count 3.40L, Hemoglobin 10.3L, Hematocrit 31.4L, Mean Corpuscular Volume 93, Mean Corpuscular Hemoglobin 30.3, Mean Corpuscular Hemoglobin Concent 32.8, Red Cell Distribution Width 14.3, Platelet Count 220, Mean Platelet Volume 5.2L, Neutrophils (%) (Auto) 77.2H, Lymphocytes (%) (Auto) 11.9L, Monocytes (%) (Auto) 9.6, Eosinophils (%) (Auto) 0.8, Basophils (%) (Auto) 0.5, Sodium Level 139, Potassium Level 3.8, Chloride Level 103, Carbon Dioxide Level 29, Anion Gap 7, Blood Urea Nitrogen 24H, Creatinine 0.9, Estimat Glomerular Filtration Rate , Glucose Level 134H, Uric Acid 8.5H, Calcium Level 8.6, Phosphorus Level 3.5, Magnesium Level 1.8, Total Bilirubin 0.3, Aspartate Amino Transf (AST/SGOT) 17, Alanine Aminotransferase (ALT/SGPT) 18, Alkaline Phosphatase 50, Troponin I 0.011, C-Reactive Protein, Quantitative 2.1H, Pro-B-Type Natriuretic Peptide 676H, Total Protein 6.0L, Albumin 2.4L, Globulin 3.6, Albumin/Globulin Ratio 0.7L Current Medications Medications (Trade) Dose Ordered Sig/Meera Route PRN Reason Start Time Stop Time Status Last Admin Dose Admin Albuterol Sulfate (Proventil) 2.5 mg QIDRT HHN 11/24/17 19:00 11/29/17 06:59 11/25/17 08:07 Carvedilol (Coreg) 3.125 mg EVERY 12 HOURS ORAL 11/25/17 21:00 12/25/17 20:59 Cefepime HCl 2 gm/ Dextrose 55 ml @ 110 mls/hr Q24H IVPB 11/25/17 14:00 12/01/17 13:59 Docusate Sodium (Colace) 100 mg THREE TIMES A DAY ORAL 11/25/17 09:00 12/24/17 17:59 11/25/17 12:35 Furosemide (Lasix) 20 mg DAILY IV 11/26/17 09:00 12/26/17 08:59 Hydromorphone HCl (Dilaudid) 0.5 mg Q4H PRN IVP PAIN 4-10 11/24/17 19:00 1/21/18 18:59 11/25/17 09:31 Magnesium Oxide (Mag-Ox 400mg) 400 mg THREE TIMES A DAY ORAL 11/25/17 09:00 12/24/17 17:59 11/25/17 12:35 Metronidazole 100 ml @ 100 mls/hr Q8HR IVPB 11/24/17 22:00 12/01/17 21:59 11/25/17 04:55 Ondansetron HCl (Zofran) 4 mg Q6H PRN IVP Nausea & Vomiting 11/24/17 19:00 12/24/17 18:59 Potassium Chloride (K-Dur) 40 meq DAILY ORAL 11/26/17 09:00 12/26/17 08:59 Vancomycin HCl (Vanco rx to dose) 1 ea DAILY PRN MISC Per rx protocol 11/24/17 19:00 12/24/17 18:59 Vancomycin HCl 1 gm/Dextrose 275 ml @ 183.708 mls/hr Q24H IVPB 11/25/17 15:00 11/30/17 14:59 SUSIE ROCHA Nov 25, 2017 12:48
[2017-11-25] MEDS: Cefepime HCl 2 GM in D5W 55 ML IVPB SCH (13:24)
[2017-11-25] MEDS ORDERED: Cefepime HCl 2 GM in D5W 55 ML IVPB SCH (14:00)
--- NOTE | 2017-11-25 14:41 | Infectious Diseases Prog Note ---
Assessment/Plan Problems: (1) HCAP (healthcare-associated pneumonia) Assessment & Plan: with RLL medial infltrates , possible aspiration, continue vancomycin, cefepime and metronidazol empiric coverage, pending culture results (2) Coag negative Staphylococcus bacteremia Assessment & Plan: grew out of two bottles , repeated blood culture to confirm clerance is pending , continue vancomycin empiric coverage , pending repeated blood culture , obtain 2D echo to rule out vegetations (3) UTI (urinary tract infection) Assessment & Plan: with E.coli intermediate to zosyn, continue cefepime for 7- 10 days (4) Sepsis Assessment & Plan: due to the above, continue wide spectrum antibiotics coverage pending cultures (5) GI bleeding Assessment & Plan: monitor H/H, transfuse blood as needed, consult GI for endoscopy (6) COPD (chronic obstructive pulmonary disease) Assessment & Plan: continue nebulizer treatment and oxygen, monitor CXR Subjective Constitutional: Reports: fatigue HEENT: Reports: no symptoms Respiratory: Reports: dry cough Breasts: Reports: no symptoms Cardiovascular: Reports: no symptoms Gastrointestinal/Abdominal: Reports: diarrhea Genitourinary: Reports: no symptoms Neurologic: Reports: no symptoms Psychiatric: Reports: no symptoms Skin: Reports: no symptoms Endocrine: Reports: no symptoms Hematologic: Reports: no symptoms Allergies: Coded Allergies: No Known Allergies (Unverified , 02/17/16) Objective Vital Signs Last 24 Hour Vital Signs Date Time Temp Pulse Resp B/P (MAP) Pulse Ox O2 Delivery O2 Flow Rate FiO2 11/25/17 14:06 87 18 96 Nasal Cannula 3.0 32 11/25/17 14:00 95 18 96 Nasal Cannula 3.0 32 11/25/17 13:55 97.3 11/25/17 12:00 97.3 94 21 110/71 95 11/25/17 10:44 89 102/73 11/25/17 08:15 89 20 96 Nasal Cannula 3.0 32 11/25/17 08:07 96 20 95 Nasal Cannula 3.0 32 11/25/17 08:00 98.2 100 22 102/73 100 11/25/17 04:00 98.0 105 18 104/68 93 Nasal Cannula 3.0 11/25/17 00:00 98.3 117 20 97/63 92 Nasal Cannula 11/24/17 21:25 97.3 114 20 95/69 92 Nasal Cannula 3.0 11/24/17 21:19 Nasal Cannula 11/24/17 21:18 Nasal Cannula 11/24/17 16:00 97.3 107 20 112/54 94 Nasal Cannula 2.0 11/24/17 14:40 109 20 94 Nasal Cannula 3.0 32 Height (Feet): 5 Height (Inches): 4.00 Weight (Pounds): 140 General Appearance: WD/WN, no acute distress HEENT: normocephalic, atraumatic, anicteric, mucous membranes moist, PERRL, EOMI, pharynx normal, supple, no JVD Respiratory/Chest: chest wall non-tender, no respiratory distress, no accessory muscle use, decreased breath sounds, crackles/rales Cardiovascular: normal peripheral pulses, normal rate, regular rhythm, no gallop/murmur, no JVD Abdomen: normal bowel sounds, soft, non tender, no organomegaly, non distended , no mass, no scars Extremities: no cyanosis, no clubbing Skin: no rash, no lesions, no ulcers Neurologic/Psychiatric: alert, oriented x 3, responsive Lymphatic: no neck adenopathy, no groin adenopathy Microbiology Date/Time Source Procedure Growth Status 11/24/17 00:19 Urine,Clean Catch Urine Culture - Preliminary Streptococcus Species Resulted Laboratory Tests Test 11/25/17 05:45 White Blood Count 12.5 K/UL (4.8-10.8) H Red Blood Count 3.40 M/UL (4.20-5.40) L Hemoglobin 10.3 G/DL (12.0-16.0) L Hematocrit 31.4 % (37.0-47.0) L Mean Corpuscular Volume 93 FL (80-99) Mean Corpuscular Hemoglobin 30.3 PG (27.0-31.0) Mean Corpuscular Hemoglobin Concent 32.8 G/DL (32.0-36.0) Red Cell Distribution Width 14.3 % (11.6-14.8) Platelet Count 220 K/UL (150-450) Mean Platelet Volume 5.2 FL (6.5-10.1) L Neutrophils (%) (Auto) 77.2 % (45.0-75.0) H Lymphocytes (%) (Auto) 11.9 % (20.0-45.0) L Monocytes (%) (Auto) 9.6 % (1.0-10.0) Eosinophils (%) (Auto) 0.8 % (0.0-3.0) Basophils (%) (Auto) 0.5 % (0.0-2.0) Sodium Level 139 MMOL/L (136-145) Potassium Level 3.8 MMOL/L (3.5-5.1) Chloride Level 103 MMOL/L (98-107) Carbon Dioxide Level 29 MMOL/L (21-32) Anion Gap 7 mmol/L (5-15) Blood Urea Nitrogen 24 mg/dL (7-18) H Creatinine 0.9 MG/DL (0.55-1.30) Estimat Glomerular Filtration Rate mL/min (>60) Glucose Level 134 MG/DL (74-106) H Uric Acid 8.5 MG/DL (2.6-7.2) H Calcium Level 8.6 MG/DL (8.5-10.1) Phosphorus Level 3.5 MG/DL (2.5-4.9) Magnesium Level 1.8 MG/DL (1.8-2.4) Total Bilirubin 0.3 MG/DL (0.2-1.0) Aspartate Amino Transf (AST/SGOT) 17 U/L (15-37) Alanine Aminotransferase (ALT/SGPT) 18 U/L (12-78) Alkaline Phosphatase 50 U/L (46-116) Troponin I 0.011 ng/mL (0.000-0.056) C-Reactive Protein, Quantitative 2.1 mg/dL (0.00-0.90) H Pro-B-Type Natriuretic Peptide 676 pg/mL (0-125) H Total Protein 6.0 G/DL (6.4-8.2) L Albumin 2.4 G/DL (3.4-5.0) L Globulin 3.6 g/dL Albumin/Globulin Ratio 0.7 (1.0-2.7) L Current Medications Medications (Trade) Dose Ordered Sig/Meera Route PRN Reason Start Time Stop Time Status Last Admin Dose Admin Albuterol Sulfate (Proventil) 2.5 mg QIDRT HHN 11/24/17 19:00 11/29/17 06:59 11/25/17 13:57 Carvedilol (Coreg) 3.125 mg EVERY 12 HOURS ORAL 11/25/17 21:00 12/25/17 20:59 Cefepime HCl 2 gm/ Dextrose 55 ml @ 110 mls/hr Q24H IVPB 11/25/17 14:00 12/01/17 13:59 11/25/17 13:24 Docusate Sodium (Colace) 100 mg THREE TIMES A DAY ORAL 11/25/17 09:00 12/24/17 17:59 11/25/17 12:35 Furosemide (Lasix) 20 mg DAILY IV 11/26/17 09:00 12/26/17 08:59 Hydromorphone HCl (Dilaudid) 0.5 mg Q4H PRN IVP PAIN 4-10 11/24/17 19:00 12/01/17 18:59 11/25/17 13:25 Magnesium Oxide (Mag-Ox 400mg) 400 mg THREE TIMES A DAY ORAL 11/25/17 09:00 12/24/17 17:59 11/25/17 12:35 Metronidazole 100 ml @ 100 mls/hr Q8HR IVPB 11/24/17 22:00 12/01/17 21:59 11/25/17 14:27 Ondansetron HCl (Zofran) 4 mg Q6H PRN IVP Nausea & Vomiting 11/24/17 19:00 12/24/17 18:59 Potassium Chloride (K-Dur) 40 meq DAILY ORAL 11/26/17 09:00 12/26/17 08:59 Vancomycin HCl (Vanco rx to dose) 1 ea DAILY PRN MISC Per rx protocol 11/24/17 19:00 12/24/17 18:59 Vancomycin HCl 1 gm/Dextrose 275 ml @ 183.708 mls/hr Q24H IVPB 11/25/17 15:00 11/30/17 14:59 Chani Madrigal M.D. Nov 25, 2017 14:41
[2017-11-25] MEDS ORDERED: Vancomycin 1 GM in D5W 275 ML IVPB SCH ×4 (15:00)
[2017-11-25] MEDS ORDERED: Vancomycin 1gm/D5W 275ml IVPB SCH ×2 (15:00)
--- NOTE | 2017-11-25 18:11 | Cardiology Report ---
APPROVED REPORT EXAM: Three-dimensional, Two-dimensional and M-mode echocardiogram with Doppler and color Doppler. INDICATION Congestive Heart Failure M-Mode DIMENSIONS IVSd1.6 (0.7-1.1cm)Left Atrium (MM)3.6 (1.6-4.0cm) LVDd3.9 (3.5-5.6cm)Aortic Root3.8 (2.0-3.7cm) PWd1.5 (0.7-1.1cm)Aortic Cusp Exc.1.2 (1.5-2.0cm) IVSs2.2 cm LVDs2.5 (2.5-4.0cm) PWs1.5 cm Technically difficult study due to poor acoustical windows and patient resistance. Normal left ventricular chamber size, systolic function and wall motion to extent visualized. Left ventricular ejection fraction estimated to be 60-65%. Study quality precludes accurate assessment of regional wall motion. Mild left ventricular hypertrophy by 2-D. No evidence of pericardial effusion. Pleural effusion. All other cardiac chamber sizes are within normal limits. Focal aortic valve sclerosis with adequate cusp excursion. Thickened mitral valve leaflets with normal excursion. Mitral annulus and aortic root calcification. Pulmonic valve not well visualized. Normal tricuspid valve structure. IVC at normal size without physiologic collapse. A color flow and spectral Doppler study was performed and revealed: No aortic regurgitation. Peak aortic valve gradient of 9 mm Hg and a mean of 4 mmHg. Aortic valve area 2.6 cm2 calculated by continuity equation. Trace mitral regurgitation. Mitral diastolic velocities suggest reduced left ventricular relaxation c/w mild LV diastolic dysfunction (Grade I ). Tricuspid systolic velocities suggests peak right ventricular systolic pressure of 26 mmHg No Pulmonic regurgitation present.
[2017-11-26] MEDS: Hydromorphone 0.5mg/0.5ml inj IVP PRN ×3 (02:36→10:24)
[2017-11-26] MEDS: Albuterol ud Inhalation HHN SCH ×4 (06:51→19:00)
[2017-11-26 07:27] LABS: EOSINOPHILS % (AUTO) 0.9 % (0.0-3.0); HEMOGLOBIN 9.8 G/DL (12.0-16.0); LYMPHOCYTES % (AUTO) 26.6 % (20.0-45.0); MEAN CORPUSCULAR VOLUME 94 FL (80-99); MONOCYTES % (AUTO) 9.7 % (1.0-10.0); NEUTROPHILS % (AUTO) 61.8 % (45.0-75.0); PLATELET COUNT 236 K/UL (150-450); RED BLOOD COUNT 3.32 M/UL (4.20-5.40); RED CELL DISTRIBUTION WIDTH 14.5 % (11.6-14.8); WHITE BLOOD COUNT 10.9 K/UL (4.8-10.8)
[2017-11-26 07:54] LABS: ALANINE AMINOTRANSFERASE 22 U/L (12-78); ALBUMIN 2.5 G/DL (3.4-5.0); ALBUMIN/GLOBULIN RATIO 0.7 (1.0-2.7); ALKALINE PHOSPHATASE 53 U/L (46-116); ANION GAP 7 mmol/L (5-15); ASPARTATE AMINO TRANSFERASE 21 U/L (15-37); BILIRUBIN,TOTAL 0.2 MG/DL (0.2-1.0); BLOOD UREA NITROGEN 16 mg/dL (7-18); CALCIUM 8.7 MG/DL (8.5-10.1); CARBON DIOXIDE 30 MMOL/L (21-32); CHLORIDE 105 MMOL/L (98-107); CREATININE 0.8 MG/DL (0.55-1.30); PHOSPHORUS 2.8 MG/DL (2.5-4.9); POTASSIUM 3.5 MMOL/L (3.5-5.1); SODIUM 142 MMOL/L (136-145)
[2017-11-26 08:00] VITALS: BP 105/61
[2017-11-26] MEDS: Magnesium Oxide 400mg tab ORAL SCH ×3 (09:40→17:42)
[2017-11-26] MEDS: Docusate 100mg cap ORAL SCH ×4 (09:42→17:10)
[2017-11-26 11:33] VITALS: BP 100/60
[2017-11-26] MEDS: Cefepime HCl 2 GM in D5W 55 ML IVPB SCH (12:51)
--- NOTE | 2017-11-26 14:35 | General Progress Note ---
Assessment/Plan Status: stable Status Narrative HCAP (healthcare-associated pneumonia) with RLL medial infltrates , possible aspiration, - Coag negative Staphylococcus bacteremia - UTI (urinary tract infection) - Sepsis - GI bleeding Hgb lower - COPD (chronic obstructive pulmonary disease) - CHF - Chronic Pain - s/p Multiple Abdominal Surgeries / Diverticulosis - DNR DNI - DM Assessment/Plan Antibiotics- Cefepime Vanco Flagyl monitor H&H IV Iron HHN Start PO Lasix and KCl 2D Echo Left ventricular ejection fraction estimated to be 60-65%. Oxygen low flow per ID and pulm bed side commode Subjective ROS Limited/Unobtainable: No Constitutional: Reports: malaise, other - stronger Allergies: Coded Allergies: No Known Allergies (Unverified , 02/17/16) Objective Last 24 Hour Vital Signs Date Time Temp Pulse Resp B/P (MAP) Pulse Ox O2 Delivery O2 Flow Rate FiO2 11/26/17 12:06 85 18 96 Nasal Cannula 3.0 32 11/26/17 12:00 91 18 96 Nasal Cannula 3.0 32 11/26/17 11:33 96.6 88 20 100/60 96 11/26/17 10:54 97.3 11/26/17 09:47 97 105/61 11/26/17 08:00 97.3 97 21 105/61 95 11/26/17 07:01 86 18 96 Nasal Cannula 3.0 32 11/26/17 06:51 90 18 97 Nasal Cannula 3.0 32 11/25/17 23:26 97.7 97 20 105/66 91 Nasal Cannula 11/25/17 21:00 92 105/69 11/25/17 19:30 97.9 92 20 105/69 94 Room Air 11/25/17 18:48 Nasal Cannula 11/25/17 18:48 Nasal Cannula 11/25/17 16:00 97.9 100 20 108/64 91 Intake and Output 11/25/17 11/26/17 19:00 07:00 Intake Total 150 ml 100 ml Output Total 1400 ml 350 ml Balance -1250 ml -250 ml IV Total 150 ml 100 ml Output Urine Total 1400 ml 350 ml # Bowel Movements 2 Laboratory Tests 11/26/17 05:40: White Blood Count 10.9H, Red Blood Count 3.32L, Hemoglobin 9.8L, Hematocrit 31.0L, Mean Corpuscular Volume 94, Mean Corpuscular Hemoglobin 29.6, Mean Corpuscular Hemoglobin Concent 31.6L, Red Cell Distribution Width 14.5, Platelet Count 236, Mean Platelet Volume 5.1L, Neutrophils (%) (Auto) 61.8, Lymphocytes (%) (Auto) 26.6, Monocytes (%) (Auto) 9.7, Eosinophils (%) (Auto) 0.9, Basophils (%) (Auto) 1.0, Sodium Level 142, Potassium Level 3.5, Chloride Level 105, Carbon Dioxide Level 30, Anion Gap 7, Blood Urea Nitrogen 16, Creatinine 0.8, Estimat Glomerular Filtration Rate , Glucose Level 123H, Uric Acid 8.2H, Calcium Level 8.7, Phosphorus Level 2.8, Magnesium Level 1.9, Total Bilirubin 0.2, Aspartate Amino Transf (AST/SGOT) 21, Alanine Aminotransferase ( ALT/SGPT) 22, Alkaline Phosphatase 53, Pro-B-Type Natriuretic Peptide 557H, Total Protein 6.1L, Albumin 2.5L, Globulin 3.6, Albumin/Globulin Ratio 0.7L, Cortisol AM Sample [Pending] Height (Feet): 5 Height (Inches): 4.00 Weight (Pounds): 140 General Appearance: no apparent distress Cardiovascular: tachycardia Respiratory/Chest: decreased breath sounds Abdomen: soft, distended Objective no other change PAWAN AZAR Nov 26, 2017 14:35
[2017-11-26] MEDS: Norco 5mg/325mg tab ORAL SCH ×3 (15:01→21:00)
[2017-11-26 15:17] LABS: FERRITIN 94 NG/ML (8-388)
--- NOTE | 2017-11-26 15:39 | Infectious Diseases Prog Note ---
Assessment/Plan Problems: (1) HCAP (healthcare-associated pneumonia) Assessment & Plan: with RLL medial infltrates , possible aspiration, will switch vancomycin, to zyvox , to cover for UTI too , and stop cefepime with metronidazol . (2) Coag negative Staphylococcus bacteremia Assessment & Plan: grew out of two bottles , repeated blood culture to confirm clerance is negative , will switch vancomycin to zyvox to cover for UTI too , 2D echo ruled out vegetations. will need two weeks of zyvox for her bacteremia and UTI . (3) UTI (urinary tract infection) Assessment & Plan: with E. faecalis resisitant to vancomycin , will switch to zyvox and treat for 10 days (4) Sepsis Assessment & Plan: due to the above, continue wide spectrum antibiotics coverage pending cultures (5) GI bleeding Assessment & Plan: monitor H/H, transfuse blood as needed, consult GI for endoscopy (6) COPD (chronic obstructive pulmonary disease) Assessment & Plan: continue nebulizer treatment and oxygen, monitor CXR Subjective Constitutional: Reports: no symptoms HEENT: Reports: no symptoms Respiratory: Reports: no symptoms Breasts: Reports: no symptoms Cardiovascular: Reports: no symptoms Gastrointestinal/Abdominal: Reports: no symptoms Genitourinary: Reports: no symptoms Neurologic: Reports: no symptoms Psychiatric: Reports: no symptoms Skin: Reports: no symptoms Endocrine: Reports: no symptoms Hematologic: Reports: no symptoms Allergies: Coded Allergies: No Known Allergies (Unverified , 02/17/16) Objective Vital Signs Last 24 Hour Vital Signs Date Time Temp Pulse Resp B/P (MAP) Pulse Ox O2 Delivery O2 Flow Rate FiO2 11/26/17 12:06 85 18 96 Nasal Cannula 3.0 32 11/26/17 12:00 91 18 96 Nasal Cannula 3.0 32 11/26/17 11:33 96.6 88 20 100/60 96 11/26/17 10:54 97.3 11/26/17 09:47 97 105/61 11/26/17 08:00 97.3 97 21 105/61 95 11/26/17 07:01 86 18 96 Nasal Cannula 3.0 32 11/26/17 06:51 90 18 97 Nasal Cannula 3.0 32 11/25/17 23:26 97.7 97 20 105/66 91 Nasal Cannula 11/25/17 21:00 92 105/69 11/25/17 19:30 97.9 92 20 105/69 94 Room Air 11/25/17 18:48 Nasal Cannula 11/25/17 18:48 Nasal Cannula 11/25/17 16:00 97.9 100 20 108/64 91 Height (Feet): 5 Height (Inches): 4.00 Weight (Pounds): 140 General Appearance: WD/WN, no acute distress HEENT: normocephalic, atraumatic, anicteric, mucous membranes moist, PERRL Respiratory/Chest: chest wall non-tender, lungs clear, normal breath sounds, no respiratory distress, no accessory muscle use, decreased breath sounds, crackles/rales Cardiovascular: normal peripheral pulses, normal rate, regular rhythm, no gallop/murmur, no JVD Abdomen: normal bowel sounds, soft, non tender, no organomegaly, non distended , no mass, no scars Extremities: no cyanosis, no clubbing Skin: no rash, no lesions, no ulcers Neurologic/Psychiatric: alert, oriented x 3, responsive Lymphatic: no neck adenopathy, no groin adenopathy Microbiology Date/Time Source Procedure Growth Status 11/24/17 14:10 Blood Blood Culture - Preliminary NO GROWTH AFTER 24 HOURS Resulted 11/24/17 13:45 Blood Blood Culture - Preliminary NO GROWTH AFTER 24 HOURS Resulted 11/24/17 00:19 Urine,Clean Catch Urine Culture - Final Enterococcus Faecium - Vre Complete Laboratory Tests Test 11/26/17 05:40 11/26/17 09:30 White Blood Count 10.9 K/UL (4.8-10.8) H Red Blood Count 3.32 M/UL (4.20-5.40) L Hemoglobin 9.8 G/DL (12.0-16.0) L Hematocrit 31.0 % (37.0-47.0) L Mean Corpuscular Volume 94 FL (80-99) Mean Corpuscular Hemoglobin 29.6 PG (27.0-31.0) Mean Corpuscular Hemoglobin Concent 31.6 G/DL (32.0-36.0) L Red Cell Distribution Width 14.5 % (11.6-14.8) Platelet Count 236 K/UL (150-450) Mean Platelet Volume 5.1 FL (6.5-10.1) L Neutrophils (%) (Auto) 61.8 % (45.0-75.0) Lymphocytes (%) (Auto) 26.6 % (20.0-45.0) Monocytes (%) (Auto) 9.7 % (1.0-10.0) Eosinophils (%) (Auto) 0.9 % (0.0-3.0) Basophils (%) (Auto) 1.0 % (0.0-2.0) Sodium Level 142 MMOL/L (136-145) Potassium Level 3.5 MMOL/L (3.5-5.1) Chloride Level 105 MMOL/L (98-107) Carbon Dioxide Level 30 MMOL/L (21-32) Anion Gap 7 mmol/L (5-15) Blood Urea Nitrogen 16 mg/dL (7-18) Creatinine 0.8 MG/DL (0.55-1.30) Estimat Glomerular Filtration Rate mL/min (>60) Glucose Level 123 MG/DL (74-106) H Uric Acid 8.2 MG/DL (2.6-7.2) H Calcium Level 8.7 MG/DL (8.5-10.1) Phosphorus Level 2.8 MG/DL (2.5-4.9) Magnesium Level 1.9 MG/DL (1.8-2.4) Total Bilirubin 0.2 MG/DL (0.2-1.0) Aspartate Amino Transf (AST/SGOT) 21 U/L (15-37) Alanine Aminotransferase (ALT/SGPT) 22 U/L (12-78) Alkaline Phosphatase 53 U/L (46-116) Pro-B-Type Natriuretic Peptide 557 pg/mL (0-125) H Total Protein 6.1 G/DL (6.4-8.2) L Albumin 2.5 G/DL (3.4-5.0) L Globulin 3.6 g/dL Albumin/Globulin Ratio 0.7 (1.0-2.7) L Cortisol AM Sample 17.5 UG/DL (6.0-18.4) Iron Level Pending Unsaturated Iron Binding Pending Ferritin 94 NG/ML (8-388) Vitamin B12 Level Pending Folate Pending Current Medications Medications (Trade) Dose Ordered Sig/Meera Route PRN Reason Start Time Stop Time Status Last Admin Dose Admin Acetaminophen/ Hydrocodone Bitart ([place] 5/325) 1 tab QID ORAL 11/26/17 15:00 12/03/17 14:59 11/26/17 15:01 Albuterol Sulfate (Proventil) 2.5 mg QIDRT HHN 11/24/17 19:00 11/29/17 06:59 11/26/17 12:00 Carvedilol (Coreg) 6.25 mg EVERY 12 HOURS ORAL 11/26/17 21:00 12/26/17 20:59 Cefepime HCl 2 gm/ Dextrose 55 ml @ 110 mls/hr Q24H IVPB 11/25/17 14:00 12/01/17 13:59 11/26/17 12:51 Docusate Sodium (Colace) 100 mg THREE TIMES A DAY ORAL 11/25/17 09:00 12/24/17 17:59 11/25/17 18:03 Ergocalciferol (Drisdol) 50,000 intlu QWEEK ORAL 11/26/17 18:00 12/26/17 17:59 Furosemide (Lasix) 20 mg DAILY IV 11/26/17 09:00 12/26/17 08:59 11/26/17 09:40 Hydromorphone HCl (Dilaudid) 0.5 mg Q6H PRN IVP PAIN 7-10 11/26/17 16:24 12/02/17 16:23 Iron Sucrose 200 mg/Sodium Chloride 60 ml @ 200 mls/hr ONCE ONCE IV 11/26/17 16:00 11/26/17 16:17 Lansoprazole (Prevacid) 30 mg DAILY ORAL 11/26/17 15:00 12/26/17 14:59 11/26/17 15:01 Linezolid 300 ml @ 300 mls/hr Q12HR IVPB 11/26/17 21:00 12/03/17 20:59 Magnesium Oxide (Mag-Ox 400mg) 400 mg THREE TIMES A DAY ORAL 11/25/17 09:00 12/24/17 17:59 11/26/17 12:48 Metronidazole (Flagyl) 500 mg Q8HR ORAL 11/26/17 22:00 12/01/17 21:59 Ondansetron HCl (Zofran) 4 mg Q6H PRN IVP Nausea & Vomiting 11/24/17 19:00 12/24/17 18:59 Potassium Chloride (K-Dur) 40 meq BID ORAL 11/26/17 18:00 12/26/17 08:59 Chani Madrigal M.D. Nov 26, 2017 15:39
[2017-11-26 15:55] LABS: % IRON SATURATION 12 % (15-50); IRON 31 ug/dL (50-175); TOTAL IRON BINDING CAPACITY 267 ug/dL (250-450)
[2017-11-26 16:00] VITALS: BP 107/66
[2017-11-26] MEDS ORDERED: Iron Sucrose 200 MG in NS 50 ML IV ONE (16:00)
[2017-11-26] MEDS ORDERED: Hydromorphone 0.5mg/0.5ml inj IVP PRN (16:24)
--- NOTE | 2017-11-26 17:30 | Consultation ---
DATE OF CONSULTATION: 11/25/2017 INFECTIOUS DISEASES CONSULTATION REQUESTING PHYSICIAN: Paresh Snow M.D. REASON FOR CONSULTATION: Sepsis with coagulase-negative staph, pneumonia, and UTI. Recommendation for antibiotics treatment and further management. HISTORY OF PRESENT ILLNESS: The patient is an 87-year-old female with past medical history of CHF, hyperlipidemia, anemia, angina, COPD, GI bleeding, osteoarthritis, and CVA was sent from [facility] with nausea and vomiting with generalized weakness. The patient was vomiting coffee-ground material. She did not have any melena or rectal bleeding. She was incontinent. Did not have any fever or chills. No abdominal pain. No similar symptoms in the past. The patient was seen recently in the emergency room on 11/21/2017 and she had blood culture x2. Both of them grew coag-negative Staph. She also had chest x-ray in the emergency room, it showed right lower lobe medial infiltrates suspicious for pneumonia. Her urinalysis also showed evidence of infection. So, Infectious Disease consultation was requested for antibiotics treatment and further management. As of note, the patient was confused, altered, and unable to provide any history. History was mainly obtained from the medical record and nursing staff. PAST MEDICAL HISTORY: Significant for CHF, hyperlipidemia, anemia, angina, COPD, hypertension, GI bleeding, GERD, osteoarthritis, and CVA. PAST SURGICAL HISTORY: Not on record. MEDICATIONS: The patient was given ceftriaxone and levofloxacin in the emergency room and Zosyn by the admitting physician. For the rest of her medications, please refer to MAR. ALLERGIES: No known drug allergy. SOCIAL HISTORY: She lives in intermediate at [facility]. No recent drugs, tobacco, or alcohol. FAMILY HISTORY: Unable to obtain. REVIEW OF SYSTEMS: Unable to obtain at this point due to altered mental status. PHYSICAL EXAMINATION: VITAL SIGNS: Temperature 97.3 degrees, pulse 114, respirations 20, blood pressure 95/69, and pulse oximetry 92% on three liters nasal cannula. GENERAL: Elderly female, morbidly obese, lying in bed, altered, confused, not agitated, not in acute distress. HEENT: Normocephalic and atraumatic. Pupils are reactive to light equally. Moist oral mucosa. No exudate or thrush. NECK: Supple. No lymphadenopathy. CARDIOVASCULAR: She is tachycardic. S1 and S2 normal. No murmur or gallop. LUNGS: She had crackles and diminished breathing sounds on the bases. Normal breathing effort. ABDOMEN: Soft and distended with three large hernias, one in the middle the largest and two on the sides, both reducible well healed. No rebound. No strangulation. EXTREMITIES: No edema or cyanosis. SKIN: No rash or hives. No ulceration. LABORATORY AND DIAGNOSTIC DATA: Labs showed white count of 11.4, hemoglobin of 11.4, and platelet count of 256. BUN 24 and creatinine 0.9. C-reactive protein 2.2. Urinalysis showed +1 leukocyte esterase, WBCs 2 to 4, and moderate amount of bacteria. Microbiology on 11/21/2017, blood culture x2 grew Staphylococcus coag-negative species sensitive to rifampin, doxycycline, and vancomycin. Urinalysis grew E. coli on 11/21/2017 resistant to ampicillin, quinolone intermediate to Zosyn. Influenza swab was negative on 11/21/2017. Imaging, chest x-ray on 11/25/2017 showed right lower lung hazy opacity increased suggestive of pneumonia. ASSESSMENT AND PLAN: 1. Healthcare-acquired pneumonia with right lower lobe medial infiltrates, possible aspiration. We will start vancomycin, cefepime, and metronidazole empiric coverage pending culture results of the sputum and blood. Monitor chest x-ray. Continue aspiration precaution. 2. Coagulase-negative Staphylococcus bacteremia grew out of two bottles. We will repeat blood culture to confirm and start vancomycin empiric coverage pending repeated blood culture. We will obtain echocardiogram to rule out vegetation. 3. Urinary tract infection with history of Escherichia coli, intermediate to Zosyn. We will switch Zosyn to cefepime empirically, pending urine culture results. 4. Sepsis with coagulase-negative Staphylococcus bacteremia source unclear at this point. The patient never had any recent IV line or skin break. No evidence of decubitus wound. We will continue vancomycin for now empiric coverage pending sensitivity and repeat blood culture to confirm resolution. 5. Gastrointestinal bleeding. Monitor hemoglobin and hematocrit. Transfuse blood as needed. Consult GI for endoscopy. 6. Chronic obstructive pulmonary disease. Continue nebulizer treatment and oxygen. Monitor chest x-ray. Pulmonary is following. Thank you for the consult. Chani Madrigal M.D. DR: Kt JOB#: [id number] CC:
[2017-11-26] MEDS ORDERED: Vitamin D 50,000 units cap ORAL SCH (18:00)
--- NOTE | 2017-11-26 19:32 | Pulmonology Progress Note ---
Assessment/Plan Problems: (1) Pneumonia (2) GI bleed (3) COPD (chronic obstructive pulmonary disease) (4) CAD (coronary artery disease) (5) History of cerebrovascular accident Assessment/Plan cxr reviewed, infiltrate increased respiratory treatment titrate fio2 chest pt check cultures continue abx, on linezolid aspiration precaution dvt prophylaxis Subjective ROS Limited/Unobtainable: No Constitutional: Reports: no symptoms HEENT: Repors: no symptoms Respiratory: Reports: no symptoms Allergies: Coded Allergies: No Known Allergies (Unverified , 02/17/16) Objective Last 24 Hour Vital Signs Date Time Temp Pulse Resp B/P (MAP) Pulse Ox O2 Delivery O2 Flow Rate FiO2 11/26/17 18:41 96.6 11/26/17 16:00 97.7 93 21 107/66 96 11/26/17 15:59 93 18 97 Nasal Cannula 3.0 32 11/26/17 12:06 85 18 96 Nasal Cannula 3.0 32 11/26/17 12:00 91 18 96 Nasal Cannula 3.0 32 11/26/17 11:33 96.6 88 20 100/60 96 11/26/17 10:54 97.3 11/26/17 09:47 97 105/61 11/26/17 08:00 97.3 97 21 105/61 95 11/26/17 07:01 86 18 96 Nasal Cannula 3.0 32 11/26/17 06:51 90 18 97 Nasal Cannula 3.0 32 11/25/17 23:26 97.7 97 20 105/66 91 Nasal Cannula 11/25/17 21:00 92 105/69 Intake and Output 11/25/17 11/26/17 19:00 07:00 Intake Total 150 ml 100 ml Output Total 1400 ml 350 ml Balance -1250 ml -250 ml IV Total 150 ml 100 ml Output Urine Total 1400 ml 350 ml # Bowel Movements 2 Objective General Appearance: WD/WN HEENT: normocephalic Respiratory/Chest: chest wall non-tender, lungs clear Breasts: no masses Cardiovascular: normal peripheral pulses Abdomen: normal bowel sounds Extremities: no cyanosis Skin: no lesions Microbiology Date/Time Source Procedure Growth Status 11/24/17 14:10 Blood Blood Culture - Preliminary NO GROWTH AFTER 24 HOURS Resulted 11/24/17 13:45 Blood Blood Culture - Preliminary NO GROWTH AFTER 24 HOURS Resulted 11/24/17 00:19 Urine,Clean Catch Urine Culture - Final Enterococcus Faecium - Vre Complete Laboratory Tests 11/26/17 05:40: White Blood Count 10.9H, Red Blood Count 3.32L, Hemoglobin 9.8L, Hematocrit 31.0L, Mean Corpuscular Volume 94, Mean Corpuscular Hemoglobin 29.6, Mean Corpuscular Hemoglobin Concent 31.6L, Red Cell Distribution Width 14.5, Platelet Count 236, Mean Platelet Volume 5.1L, Neutrophils (%) (Auto) 61.8, Lymphocytes (%) (Auto) 26.6, Monocytes (%) (Auto) 9.7, Eosinophils (%) (Auto) 0.9, Basophils (%) (Auto) 1.0, Sodium Level 142, Potassium Level 3.5, Chloride Level 105, Carbon Dioxide Level 30, Anion Gap 7, Blood Urea Nitrogen 16, Creatinine 0.8, Estimat Glomerular Filtration Rate , Glucose Level 123H, Uric Acid 8.2H, Calcium Level 8.7, Phosphorus Level 2.8, Magnesium Level 1.9, Total Bilirubin 0.2, Aspartate Amino Transf (AST/SGOT) 21, Alanine Aminotransferase ( ALT/SGPT) 22, Alkaline Phosphatase 53, Pro-B-Type Natriuretic Peptide 557H, Total Protein 6.1L, Albumin 2.5L, Globulin 3.6, Albumin/Globulin Ratio 0.7L, Cortisol AM Sample 17.5 11/26/17 09:30: Iron Level 31L, Total Iron Binding Capacity 267, Percent Iron Saturation 12L, Unsaturated Iron Binding 236, Ferritin 94, Vitamin B12 Level 863, Folate 2.3L Current Medications Medications (Trade) Dose Ordered Sig/Meera Route PRN Reason Start Time Stop Time Status Last Admin Dose Admin Acetaminophen/ Hydrocodone Bitart ([place] 5/325) 1 tab QID ORAL 11/26/17 15:00 12/03/17 14:59 11/26/17 17:42 Albuterol Sulfate (Proventil) 2.5 mg QIDRT HHN 11/24/17 19:00 11/29/17 06:59 11/26/17 15:56 Carvedilol (Coreg) 6.25 mg EVERY 12 HOURS ORAL 11/26/17 21:00 12/26/17 20:59 Docusate Sodium (Colace) 100 mg THREE TIMES A DAY ORAL 11/25/17 09:00 12/24/17 17:59 11/25/17 18:03 Ergocalciferol (Drisdol) 50,000 intlu QWEEK ORAL 11/26/17 18:00 12/26/17 17:59 11/26/17 17:42 Furosemide (Lasix) 20 mg DAILY IV 11/26/17 09:00 12/26/17 08:59 11/26/17 09:40 Hydromorphone HCl (Dilaudid) 0.5 mg Q6H PRN IVP PAIN 7-10 11/26/17 16:24 12/02/17 16:23 Lansoprazole (Prevacid) 30 mg DAILY ORAL 11/26/17 15:00 12/26/17 14:59 11/26/17 15:01 Linezolid 300 ml @ 300 mls/hr Q12HR IVPB 11/26/17 21:00 12/03/17 20:59 Magnesium Oxide (Mag-Ox 400mg) 400 mg THREE TIMES A DAY ORAL 11/25/17 09:00 12/24/17 17:59 11/26/17 17:42 Ondansetron HCl (Zofran) 4 mg Q6H PRN IVP Nausea & Vomiting 11/24/17 19:00 12/24/17 18:59 Potassium Chloride (K-Dur) 40 meq BID ORAL 11/26/17 18:00 12/26/17 08:59 11/26/17 17:41 SUSIE ROCHA Nov 26, 2017 19:32
[2017-11-26 19:33] VITALS: BP 116/68
[2017-11-26] MEDS: Carvedilol 6.25mg Tab ORAL SCH (21:00)
[2017-11-26] MEDS ORDERED: metroNIDAZOLE 500mg tab ORAL SCH (22:00)
[2017-11-27 00:41] VITALS: BP 114/72
[2017-11-27 03:25] VITALS: BP 113/64
[2017-11-27 08:00] VITALS: BP 135/71
[2017-11-27] MEDS: Albuterol ud Inhalation HHN SCH ×4 (08:19→19:00)
[2017-11-27 08:36] LABS: BASOPHILS % (AUTO) 0.7 % (0.0-2.0); EOSINOPHILS % (AUTO) 1.1 % (0.0-3.0); HEMATOCRIT 32.8 % (37.0-47.0); HEMOGLOBIN 10.4 G/DL (12.0-16.0); MEAN CORPUSCULAR VOLUME 93 FL (80-99); NEUTROPHILS % (AUTO) 61.2 % (45.0-75.0); PLATELET COUNT 245 K/UL (150-450); RED BLOOD COUNT 3.54 M/UL (4.20-5.40); RED CELL DISTRIBUTION WIDTH 14.6 % (11.6-14.8)
[2017-11-27] MEDS: Docusate 100mg cap ORAL SCH ×3 (09:00→17:34)
[2017-11-27] MEDS: Norco 5mg/325mg tab ORAL SCH ×4 (09:45→20:58)
[2017-11-27] MEDS: Magnesium Oxide 400mg tab ORAL SCH ×3 (09:46→17:34)
[2017-11-27] MEDS: Carvedilol 6.25mg Tab ORAL SCH (09:47)
[2017-11-27 09:48] LABS: ALANINE AMINOTRANSFERASE 23 U/L (12-78); ALBUMIN 2.7 G/DL (3.4-5.0); ALBUMIN/GLOBULIN RATIO 0.7 (1.0-2.7); ALKALINE PHOSPHATASE 54 U/L (46-116); ANION GAP 7 mmol/L (5-15); ASPARTATE AMINO TRANSFERASE 20 U/L (15-37); BILIRUBIN,TOTAL 0.3 MG/DL (0.2-1.0); BLOOD UREA NITROGEN 10 mg/dL (7-18); CALCIUM 8.8 MG/DL (8.5-10.1); CARBON DIOXIDE 30 MMOL/L (21-32); CHLORIDE 104 MMOL/L (98-107); CREATININE 0.6 MG/DL (0.55-1.30); PHOSPHORUS 2.5 MG/DL (2.5-4.9); POTASSIUM 4.1 MMOL/L (3.5-5.1); SODIUM 141 MMOL/L (136-145)
[2017-11-27 12:00] VITALS: BP 101/69
--- NOTE | 2017-11-27 12:47 | General Progress Note ---
Assessment/Plan Status: stable Status Narrative HCAP (healthcare-associated pneumonia) with RLL medial infltrates , possible aspiration, - Coag negative Staphylococcus bacteremia - UTI (urinary tract infection) - Sepsis - GI bleeding Hgb lower - COPD (chronic obstructive pulmonary disease) - CHF - Chronic Pain - s/p Multiple Abdominal Surgeries / Diverticulosis - DNR DNI - DM Assessment/Plan Antibiotics- to Zyvox Dc in am monitor H&H IV Iron HHN Start PO Lasix and KCl 2D Echo Left ventricular ejection fraction estimated to be 60-65%. Oxygen low flow per ID and pulm bed side commode Subjective ROS Limited/Unobtainable: No Constitutional: Reports: malaise, weakness Allergies: Coded Allergies: No Known Allergies (Unverified , 02/17/16) Objective Last 24 Hour Vital Signs Date Time Temp Pulse Resp B/P (MAP) Pulse Ox O2 Delivery O2 Flow Rate FiO2 11/27/17 12:00 97.0 92 21 101/69 97 11/27/17 09:47 98 135/71 11/27/17 08:19 96 18 99 Nasal Cannula 3.0 32 11/27/17 08:19 98 17 95 3.0 32 11/27/17 08:00 96.4 98 20 135/71 94 11/27/17 03:25 96.8 91 20 113/64 95 Room Air 11/27/17 00:41 97.5 80 20 114/72 96 Room Air 11/26/17 21:00 81 108/66 11/26/17 20:51 Nasal Cannula 11/26/17 20:50 92 18 97 Nasal Cannula 3.0 32 11/26/17 19:33 97.9 91 20 116/68 96 Room Air 11/26/17 18:41 96.6 11/26/17 16:00 97.7 93 21 107/66 96 11/26/17 15:59 93 18 97 Nasal Cannula 3.0 32 Intake and Output 11/26/17 11/27/17 19:00 07:00 Intake Total 480 ml 500 ml Output Total 1450 ml 800 ml Balance -970 ml -300 ml Intake Oral 480 ml 200 ml IV Total 300 ml Output Urine Total 1450 ml 800 ml # Bowel Movements 5 1 Laboratory Tests 11/27/17 06:00: White Blood Count 11.0H, Red Blood Count 3.54L, Hemoglobin 10.4L, Hematocrit 32.8L, Mean Corpuscular Volume 93, Mean Corpuscular Hemoglobin 29.3, Mean Corpuscular Hemoglobin Concent 31.6L, Red Cell Distribution Width 14.6, Platelet Count 245, Mean Platelet Volume 5.1L, Neutrophils (%) (Auto) 61.2, Lymphocytes (%) (Auto) 27.0, Monocytes (%) (Auto) 10.0, Eosinophils (%) (Auto) 1.1, Basophils (%) (Auto) 0.7, Sodium Level 141, Potassium Level 4.1, Chloride Level 104, Carbon Dioxide Level 30, Anion Gap 7, Blood Urea Nitrogen 10, Creatinine 0.6, Estimat Glomerular Filtration Rate , Glucose Level 112H, Calcium Level 8.8, Phosphorus Level 2.5, Magnesium Level 1.7L, Total Bilirubin 0.3, Aspartate Amino Transf (AST/SGOT) 20, Alanine Aminotransferase (ALT/SGPT) 23, Alkaline Phosphatase 54, C-Reactive Protein, Quantitative 1.6H, Total Protein 6.4, Albumin 2.7L, Globulin 3.7, Albumin/Globulin Ratio 0.7L Height (Feet): 5 Height (Inches): 4.00 Weight (Pounds): 140 General Appearance: no apparent distress Cardiovascular: tachycardia Respiratory/Chest: decreased breath sounds Abdomen: soft, distended Objective no other change PAWAN AZAR Nov 27, 2017 12:47
--- NOTE | 2017-11-27 15:04 | Infectious Diseases Prog Note ---
Assessment/Plan Problems: (1) HCAP (healthcare-associated pneumonia) Assessment & Plan: with RLL medial infltrates , possible aspiration, on zyvox , to cover for UTI too , will treat for two weeks . eot 12/08/17 (2) Coag negative Staphylococcus bacteremia Assessment & Plan: grew out of two bottles , repeated blood culture to confirm clearance is negative , continue zyvox for two weeks , 2D echo ruled out vegetations. will need two weeks of zyvox for her bacteremia and UTI . EOT (3) UTI (urinary tract infection) Assessment & Plan: with E. faecalis resisitant to vancomycin , will switch to zyvox and treat for 10 days (4) Sepsis Assessment & Plan: due to the above, continue wide spectrum antibiotics coverage pending cultures (5) GI bleeding Assessment & Plan: monitor H/H, transfuse blood as needed, consult GI for endoscopy (6) COPD (chronic obstructive pulmonary disease) Assessment & Plan: continue nebulizer treatment and oxygen, monitor CXR Subjective Constitutional: Reports: no symptoms HEENT: Reports: no symptoms Respiratory: Reports: no symptoms Breasts: Reports: no symptoms Cardiovascular: Reports: no symptoms Gastrointestinal/Abdominal: Reports: no symptoms Genitourinary: Reports: no symptoms Neurologic: Reports: no symptoms Psychiatric: Reports: no symptoms Skin: Reports: no symptoms Endocrine: Reports: no symptoms Hematologic: Reports: no symptoms Musculoskeletal: Reports: no symptoms Allergies: Coded Allergies: No Known Allergies (Unverified , 02/17/16) Objective Vital Signs Last 24 Hour Vital Signs Date Time Temp Pulse Resp B/P (MAP) Pulse Ox O2 Delivery O2 Flow Rate FiO2 11/27/17 12:00 97.0 92 21 101/69 97 11/27/17 09:47 98 135/71 11/27/17 08:19 96 18 99 Nasal Cannula 3.0 32 11/27/17 08:19 98 17 95 3.0 32 11/27/17 08:00 96.4 98 20 135/71 94 11/27/17 03:25 96.8 91 20 113/64 95 Room Air 11/27/17 00:41 97.5 80 20 114/72 96 Room Air 11/26/17 21:00 81 108/66 11/26/17 20:51 Nasal Cannula 11/26/17 20:50 92 18 97 Nasal Cannula 3.0 32 11/26/17 19:33 97.9 91 20 116/68 96 Room Air 11/26/17 18:41 96.6 11/26/17 16:00 97.7 93 21 107/66 96 11/26/17 15:59 93 18 97 Nasal Cannula 3.0 32 Height (Feet): 5 Height (Inches): 4.00 Weight (Pounds): 140 General Appearance: WD/WN, no acute distress HEENT: normocephalic, atraumatic, anicteric, mucous membranes moist, PERRL Respiratory/Chest: chest wall non-tender, no respiratory distress, no accessory muscle use, decreased breath sounds Cardiovascular: normal peripheral pulses, normal rate, regular rhythm, no gallop/murmur, no JVD Abdomen: normal bowel sounds, soft, non tender, no organomegaly, non distended , no mass, no scars, other - large ventral hernias Extremities: no cyanosis, no clubbing Skin: no rash, no lesions, no ulcers Neurologic/Psychiatric: alert, responsive Laboratory Tests Test 11/27/17 06:00 White Blood Count 11.0 K/UL (4.8-10.8) H Red Blood Count 3.54 M/UL (4.20-5.40) L Hemoglobin 10.4 G/DL (12.0-16.0) L Hematocrit 32.8 % (37.0-47.0) L Mean Corpuscular Volume 93 FL (80-99) Mean Corpuscular Hemoglobin 29.3 PG (27.0-31.0) Mean Corpuscular Hemoglobin Concent 31.6 G/DL (32.0-36.0) L Red Cell Distribution Width 14.6 % (11.6-14.8) Platelet Count 245 K/UL (150-450) Mean Platelet Volume 5.1 FL (6.5-10.1) L Neutrophils (%) (Auto) 61.2 % (45.0-75.0) Lymphocytes (%) (Auto) 27.0 % (20.0-45.0) Monocytes (%) (Auto) 10.0 % (1.0-10.0) Eosinophils (%) (Auto) 1.1 % (0.0-3.0) Basophils (%) (Auto) 0.7 % (0.0-2.0) Sodium Level 141 MMOL/L (136-145) Potassium Level 4.1 MMOL/L (3.5-5.1) Chloride Level 104 MMOL/L (98-107) Carbon Dioxide Level 30 MMOL/L (21-32) Anion Gap 7 mmol/L (5-15) Blood Urea Nitrogen 10 mg/dL (7-18) Creatinine 0.6 MG/DL (0.55-1.30) Estimat Glomerular Filtration Rate mL/min (>60) Glucose Level 112 MG/DL (74-106) H Calcium Level 8.8 MG/DL (8.5-10.1) Phosphorus Level 2.5 MG/DL (2.5-4.9) Magnesium Level 1.7 MG/DL (1.8-2.4) L Total Bilirubin 0.3 MG/DL (0.2-1.0) Aspartate Amino Transf (AST/SGOT) 20 U/L (15-37) Alanine Aminotransferase (ALT/SGPT) 23 U/L (12-78) Alkaline Phosphatase 54 U/L (46-116) C-Reactive Protein, Quantitative 1.6 mg/dL (0.00-0.90) H Total Protein 6.4 G/DL (6.4-8.2) Albumin 2.7 G/DL (3.4-5.0) L Globulin 3.7 g/dL Albumin/Globulin Ratio 0.7 (1.0-2.7) L Current Medications Medications (Trade) Dose Ordered Sig/Meera Route PRN Reason Start Time Stop Time Status Last Admin Dose Admin Acetaminophen/ Hydrocodone Bitart ([place] 5/325) 1 tab QID ORAL 11/26/17 15:00 12/03/17 14:59 11/27/17 13:02 Albuterol Sulfate (Proventil) 2.5 mg QIDRT HHN 11/24/17 19:00 11/29/17 06:59 11/27/17 08:19 Carvedilol (Coreg) 12.5 mg EVERY 12 HOURS ORAL 11/27/17 21:00 12/27/17 20:59 Docusate Sodium (Colace) 100 mg THREE TIMES A DAY ORAL 11/25/17 09:00 12/24/17 17:59 11/25/17 18:03 Ergocalciferol (Drisdol) 50,000 intlu QWEEK ORAL 11/26/17 18:00 12/26/17 17:59 11/26/17 17:42 Furosemide (Lasix) 20 mg DAILY IV 11/26/17 09:00 12/26/17 08:59 11/27/17 09:44 Lansoprazole (Prevacid) 30 mg DAILY ORAL 11/26/17 15:00 12/26/17 14:59 11/27/17 09:48 Linezolid 300 ml @ 300 mls/hr Q12HR IVPB 11/26/17 21:00 12/03/17 20:59 11/27/17 10:00 Magnesium Oxide (Mag-Ox 400mg) 400 mg THREE TIMES A DAY ORAL 11/25/17 09:00 12/24/17 17:59 11/27/17 13:02 Ondansetron HCl (Zofran) 4 mg Q6H PRN IVP Nausea & Vomiting 11/24/17 19:00 12/24/17 18:59 Potassium Chloride (K-Dur) 20 meq DAILY ORAL 11/28/17 09:00 12/26/17 08:59 Chani Madrigal M.D. Nov 27, 2017 15:04
[2017-11-27 15:51] VITALS: BP 121/82
--- NOTE | 2017-11-27 18:49 | Pulmonology Progress Note ---
Assessment/Plan Problems: (1) Pneumonia (2) GI bleed (3) COPD (chronic obstructive pulmonary disease) (4) CAD (coronary artery disease) (5) History of cerebrovascular accident Assessment/Plan cxr reviewed, infiltrate increased respiratory treatment titrate fio2 chest pt check electrolytes check cultures continue abx, on linezolid aspiration precaution dvt prophylaxis Subjective ROS Limited/Unobtainable: No Constitutional: Reports: no symptoms HEENT: Repors: no symptoms Allergies: Coded Allergies: No Known Allergies (Unverified , 02/17/16) Objective Last 24 Hour Vital Signs Date Time Temp Pulse Resp B/P (MAP) Pulse Ox O2 Delivery O2 Flow Rate FiO2 11/27/17 16:35 89 20 98 Nasal Cannula 3.0 32 11/27/17 15:51 96.8 88 20 121/82 96 11/27/17 12:00 97.0 92 21 101/69 97 11/27/17 11:20 Nasal Cannula 3.0 32 11/27/17 11:20 92 20 97 Nasal Cannula 3.0 32 11/27/17 09:47 98 135/71 11/27/17 08:19 96 18 99 Nasal Cannula 3.0 32 11/27/17 08:19 98 17 95 3.0 32 11/27/17 08:00 96.4 98 20 135/71 94 11/27/17 03:25 96.8 91 20 113/64 95 Room Air 11/27/17 00:41 97.5 80 20 114/72 96 Room Air 11/26/17 21:00 81 108/66 11/26/17 20:51 Nasal Cannula 11/26/17 20:50 92 18 97 Nasal Cannula 3.0 32 11/26/17 19:33 97.9 91 20 116/68 96 Room Air Intake and Output 11/26/17 11/27/17 19:00 07:00 Intake Total 480 ml 500 ml Output Total 1450 ml 800 ml Balance -970 ml -300 ml Intake Oral 480 ml 200 ml IV Total 300 ml Output Urine Total 1450 ml 800 ml # Bowel Movements 5 1 Objective General Appearance: WD/WN HEENT: normocephalic Respiratory/Chest: chest wall non-tender, lungs clear Breasts: no masses Cardiovascular: normal peripheral pulses Abdomen: normal bowel sounds Extremities: no cyanosis Skin: no lesions Laboratory Tests 11/27/17 06:00: White Blood Count 11.0H, Red Blood Count 3.54L, Hemoglobin 10.4L, Hematocrit 32.8L, Mean Corpuscular Volume 93, Mean Corpuscular Hemoglobin 29.3, Mean Corpuscular Hemoglobin Concent 31.6L, Red Cell Distribution Width 14.6, Platelet Count 245, Mean Platelet Volume 5.1L, Neutrophils (%) (Auto) 61.2, Lymphocytes (%) (Auto) 27.0, Monocytes (%) (Auto) 10.0, Eosinophils (%) (Auto) 1.1, Basophils (%) (Auto) 0.7, Sodium Level 141, Potassium Level 4.1, Chloride Level 104, Carbon Dioxide Level 30, Anion Gap 7, Blood Urea Nitrogen 10, Creatinine 0.6, Estimat Glomerular Filtration Rate , Glucose Level 112H, Calcium Level 8.8, Phosphorus Level 2.5, Magnesium Level 1.7L, Total Bilirubin 0.3, Aspartate Amino Transf (AST/SGOT) 20, Alanine Aminotransferase (ALT/SGPT) 23, Alkaline Phosphatase 54, C-Reactive Protein, Quantitative 1.6H, Total Protein 6.4, Albumin 2.7L, Globulin 3.7, Albumin/Globulin Ratio 0.7L Current Medications Medications (Trade) Dose Ordered Sig/Meera Route PRN Reason Start Time Stop Time Status Last Admin Dose Admin Acetaminophen/ Hydrocodone Bitart ([place] 5/325) 1 tab QID ORAL 11/26/17 15:00 12/03/17 14:59 11/27/17 17:34 Albuterol Sulfate (Proventil) 2.5 mg QIDRT HHN 11/24/17 19:00 11/29/17 06:59 11/27/17 08:19 Carvedilol (Coreg) 12.5 mg EVERY 12 HOURS ORAL 11/27/17 21:00 12/27/17 20:59 Docusate Sodium (Colace) 100 mg THREE TIMES A DAY ORAL 11/25/17 09:00 12/24/17 17:59 11/25/17 18:03 Ergocalciferol (Drisdol) 50,000 intlu QWEEK ORAL 11/26/17 18:00 12/26/17 17:59 11/26/17 17:42 Furosemide (Lasix) 20 mg DAILY IV 11/26/17 09:00 12/26/17 08:59 11/27/17 09:44 Lansoprazole (Prevacid) 30 mg DAILY ORAL 11/26/17 15:00 12/26/17 14:59 11/27/17 09:48 Linezolid 300 ml @ 300 mls/hr Q12HR IVPB 11/26/17 21:00 12/03/17 20:59 11/27/17 10:00 Magnesium Oxide (Mag-Ox 400mg) 400 mg THREE TIMES A DAY ORAL 11/25/17 09:00 12/24/17 17:59 11/27/17 17:34 Ondansetron HCl (Zofran) 4 mg Q6H PRN IVP Nausea & Vomiting 11/24/17 19:00 12/24/17 18:59 Potassium Chloride (K-Dur) 20 meq DAILY ORAL 11/28/17 09:00 12/26/17 08:59 SUSIE ROCHA Nov 27, 2017 18:49
[2017-11-27 20:21] VITALS: BP 134/77
[2017-11-27] MEDS: Carvedilol 12.5mg tab ORAL SCH (20:57)
[2017-11-28] VITALS (7 sets, daily range): BP systolic 91–123; BP diastolic 50–78
[2017-11-28] MEDS: Albuterol ud Inhalation HHN SCH ×4 (07:35→19:31)
[2017-11-28] MEDS: Magnesium Oxide 400mg tab ORAL SCH ×3 (08:56→17:10)
[2017-11-28] MEDS: Norco 5mg/325mg tab ORAL SCH ×4 (08:57→20:44)
[2017-11-28] MEDS: Docusate 100mg cap ORAL SCH ×3 (08:57→17:10)
[2017-11-28] MEDS: Carvedilol 12.5mg tab ORAL SCH ×2 (08:58→20:43)
--- NOTE | 2017-11-28 14:26 | Infectious Diseases Prog Note ---
Assessment/Plan Problems: (1) HCAP (healthcare-associated pneumonia) Assessment & Plan: with RLL medial infltrates , possible aspiration, on zyvox , to cover for UTI too , will treat for two weeks . EOT 12/08/17 (2) Coag negative Staphylococcus bacteremia Assessment & Plan: grew out of two bottles , repeated blood culture to confirm clearance is negative , continue zyvox for two weeks , 2D echo ruled out vegetations. will need two weeks of zyvox for her bacteremia and UTI . EOT (3) UTI (urinary tract infection) Assessment & Plan: with E. faecalis resisitant to vancomycin , will switch to zyvox and treat for 10 days (4) Sepsis Assessment & Plan: due to the above, continue wide spectrum antibiotics coverage pending cultures (5) GI bleeding Assessment & Plan: monitor H/H, transfuse blood as needed, consult GI for endoscopy (6) COPD (chronic obstructive pulmonary disease) Assessment & Plan: continue nebulizer treatment and oxygen, monitor CXR Subjective Constitutional: Reports: no symptoms HEENT: Reports: no symptoms Respiratory: Reports: no symptoms Breasts: Reports: no symptoms Cardiovascular: Reports: no symptoms Gastrointestinal/Abdominal: Reports: no symptoms Genitourinary: Reports: no symptoms Neurologic: Reports: no symptoms Psychiatric: Reports: no symptoms Skin: Reports: no symptoms Endocrine: Reports: no symptoms Hematologic: Reports: no symptoms Musculoskeletal: Reports: no symptoms Allergies: Coded Allergies: No Known Allergies (Unverified , 02/17/16) Objective Vital Signs Last 24 Hour Vital Signs Date Time Temp Pulse Resp B/P (MAP) Pulse Ox O2 Delivery O2 Flow Rate FiO2 11/28/17 11:50 97.7 83 20 120/78 97 11/28/17 11:05 91 18 99 Nasal Cannula 3.0 32 11/28/17 11:00 84 20 98 Nasal Cannula 3.0 32 11/28/17 08:58 79 115/71 11/28/17 08:16 97.5 79 20 115/71 98 11/28/17 07:20 Nasal Cannula 3.0 32 11/28/17 07:20 Nasal Cannula 3.0 32 11/28/17 04:25 96.4 87 22 108/75 97 11/28/17 00:07 96.4 84 20 114/58 97 11/27/17 20:57 89 134/77 11/27/17 20:23 Nasal Cannula 3.0 11/27/17 20:21 96.8 89 20 134/77 96 11/27/17 19:05 Nasal Cannula 3.0 32 11/27/17 19:05 82 18 98 Nasal Cannula 3.0 32 11/27/17 16:35 89 20 98 Nasal Cannula 3.0 32 11/27/17 15:51 96.8 88 20 121/82 96 Height (Feet): 5 Height (Inches): 4.00 Weight (Pounds): 140 General Appearance: WD/WN, no acute distress HEENT: normocephalic, atraumatic, anicteric, mucous membranes moist, PERRL Respiratory/Chest: chest wall non-tender, lungs clear, normal breath sounds, no respiratory distress, no accessory muscle use Cardiovascular: normal peripheral pulses, normal rate, regular rhythm, no gallop/murmur, no JVD Abdomen: normal bowel sounds, soft, non tender, no organomegaly, non distended , no mass, no scars Extremities: no cyanosis, no clubbing Skin: no rash, no lesions, no ulcers Neurologic/Psychiatric: alert, oriented x 3 Lymphatic: no neck adenopathy, no groin adenopathy Current Medications Medications (Trade) Dose Ordered Sig/Meera Route PRN Reason Start Time Stop Time Status Last Admin Dose Admin Acetaminophen/ Hydrocodone Bitart ([place] 5/325) 1 tab QID ORAL 11/26/17 15:00 12/03/17 14:59 11/28/17 13:34 Albuterol Sulfate (Proventil) 2.5 mg QIDRT HHN 11/24/17 19:00 11/29/17 06:59 11/28/17 11:14 Carvedilol (Coreg) 12.5 mg EVERY 12 HOURS ORAL 11/27/17 21:00 12/27/17 20:59 11/27/17 20:57 Docusate Sodium (Colace) 100 mg THREE TIMES A DAY ORAL 11/25/17 09:00 12/24/17 17:59 11/25/17 18:03 Ergocalciferol (Drisdol) 50,000 intlu QWEEK ORAL 11/26/17 18:00 12/26/17 17:59 11/26/17 17:42 Furosemide (Lasix) 20 mg DAILY IV 1/16/18 09:00 12/26/17 08:59 11/28/17 08:57 Lansoprazole (Prevacid) 30 mg DAILY ORAL 11/26/17 15:00 12/26/17 14:59 11/28/17 08:57 Linezolid 300 ml @ 300 mls/hr Q12HR IVPB 11/26/17 21:00 12/03/17 20:59 11/28/17 08:56 Magnesium Oxide (Mag-Ox 400mg) 400 mg THREE TIMES A DAY ORAL 11/25/17 09:00 12/24/17 17:59 11/28/17 13:33 Ondansetron HCl (Zofran) 4 mg Q6H PRN IVP Nausea & Vomiting 11/24/17 19:00 12/24/17 18:59 Potassium Chloride (K-Dur) 20 meq DAILY ORAL 11/28/17 09:00 12/26/17 08:59 11/28/17 08:58 Chani Madrigal M.D. Nov 28, 2017 14:26
--- NOTE | 2017-11-28 16:32 | Pulmonology Progress Note ---
Assessment/Plan Problems: (1) Pneumonia (2) GI bleed (3) COPD (chronic obstructive pulmonary disease) (4) CAD (coronary artery disease) (5) History of cerebrovascular accident Assessment/Plan no new complains f/u wbc, no new cultures respiratory treatment titrate fio2 chest pt check electrolytes check cultures continue abx, on linezolid aspiration precaution dvt prophylaxis Subjective ROS Limited/Unobtainable: No Constitutional: Reports: no symptoms HEENT: Repors: no symptoms Respiratory: Reports: no symptoms Allergies: Coded Allergies: No Known Allergies (Unverified , 02/17/16) Objective Last 24 Hour Vital Signs Date Time Temp Pulse Resp B/P (MAP) Pulse Ox O2 Delivery O2 Flow Rate FiO2 11/28/17 15:20 87 18 99 Nasal Cannula 3.0 32 11/28/17 15:10 81 20 97 Nasal Cannula 3.0 32 11/28/17 11:50 97.7 83 20 120/78 97 11/28/17 11:05 91 18 99 Nasal Cannula 3.0 32 11/28/17 11:00 84 20 98 Nasal Cannula 3.0 32 11/28/17 08:58 79 115/71 11/28/17 08:16 97.5 79 20 115/71 98 11/28/17 07:20 Nasal Cannula 3.0 32 11/28/17 07:20 Nasal Cannula 3.0 32 11/28/17 04:25 96.4 87 22 108/75 97 11/28/17 00:07 96.4 84 20 114/58 97 11/27/17 20:57 89 134/77 11/27/17 20:23 Nasal Cannula 3.0 11/27/17 20:21 96.8 89 20 134/77 96 11/27/17 19:05 Nasal Cannula 3.0 32 11/27/17 19:05 82 18 98 Nasal Cannula 3.0 32 11/27/17 16:35 89 20 98 Nasal Cannula 3.0 32 Intake and Output 11/27/17 11/28/17 19:00 07:00 Intake Total 480 ml 300 ml Output Total 1100 ml 450 ml Balance -620 ml -150 ml Intake Oral 480 ml IV Total 300 ml Output Urine Total 1100 ml 450 ml Objective General Appearance: WD/WN HEENT: normocephalic Respiratory/Chest: chest wall non-tender, lungs clear Breasts: no masses Cardiovascular: normal peripheral pulses Abdomen: normal bowel sounds Extremities: no cyanosis Skin: no lesions Current Medications Medications (Trade) Dose Ordered Sig/Meera Route PRN Reason Start Time Stop Time Status Last Admin Dose Admin Acetaminophen/ Hydrocodone Bitart ([place] 5/325) 1 tab QID ORAL 11/26/17 15:00 12/03/17 14:59 11/28/17 13:34 Albuterol Sulfate (Proventil) 2.5 mg QIDRT HHN 11/24/17 19:00 11/29/17 06:59 11/28/17 15:21 Carvedilol (Coreg) 12.5 mg EVERY 12 HOURS ORAL 11/27/17 21:00 12/27/17 20:59 11/27/17 20:57 Docusate Sodium (Colace) 100 mg THREE TIMES A DAY ORAL 11/25/17 09:00 12/24/17 17:59 11/25/17 18:03 Ergocalciferol (Drisdol) 50,000 intlu QWEEK ORAL 11/26/17 18:00 12/26/17 17:59 11/26/17 17:42 Furosemide (Lasix) 20 mg DAILY IV 11/26/17 09:00 12/26/17 08:59 11/28/17 08:57 Lansoprazole (Prevacid) 30 mg DAILY ORAL 11/26/17 15:00 12/26/17 14:59 11/28/17 08:57 Linezolid 300 ml @ 300 mls/hr Q12HR IVPB 11/26/17 21:00 12/03/17 20:59 11/28/17 08:56 Magnesium Oxide (Mag-Ox 400mg) 400 mg THREE TIMES A DAY ORAL 11/25/17 09:00 12/24/17 17:59 11/28/17 13:33 Ondansetron HCl (Zofran) 4 mg Q6H PRN IVP Nausea & Vomiting 11/24/17 19:00 12/24/17 18:59 Potassium Chloride (K-Dur) 20 meq DAILY ORAL 11/28/17 09:00 12/26/17 08:59 11/28/17 08:58 SUSIE ROCHA Nov 28, 2017 16:31
--- NOTE | 2017-11-28 17:30 | General Progress Note ---
Assessment/Plan Status: stable Status Narrative HCAP (healthcare-associated pneumonia) with RLL medial infltrates , possible aspiration, - Coag negative Staphylococcus bacteremia - UTI (urinary tract infection) - Sepsis - GI bleeding Hgb lower - COPD (chronic obstructive pulmonary disease) - CHF - Chronic Pain - s/p Multiple Abdominal Surgeries / Diverticulosis - DNR DNI - DM Assessment/Plan add Neurontin Antibiotics- to Zyvox Dc in am monitor H&H IV Iron HHN Start PO Lasix and KCl 2D Echo Left ventricular ejection fraction estimated to be 60-65%. Oxygen low flow per ID and pulm bed side commode Subjective ROS Limited/Unobtainable: No Constitutional: Reports: other - wants more pain meds Allergies: Coded Allergies: No Known Allergies (Unverified , 02/17/16) Objective Last 24 Hour Vital Signs Date Time Temp Pulse Resp B/P (MAP) Pulse Ox O2 Delivery O2 Flow Rate FiO2 11/28/17 16:00 97.4 91 21 123/71 96 11/28/17 15:20 87 18 99 Nasal Cannula 3.0 32 11/28/17 15:10 81 20 97 Nasal Cannula 3.0 32 11/28/17 11:50 97.7 83 20 120/78 97 11/28/17 11:05 91 18 99 Nasal Cannula 3.0 32 11/28/17 11:00 84 20 98 Nasal Cannula 3.0 32 11/28/17 08:58 79 115/71 11/28/17 08:16 97.5 79 20 115/71 98 11/28/17 07:20 Nasal Cannula 3.0 32 11/28/17 07:20 Nasal Cannula 3.0 32 11/28/17 04:25 96.4 87 22 108/75 97 11/28/17 00:07 96.4 84 20 114/58 97 11/27/17 20:57 89 134/77 11/27/17 20:23 Nasal Cannula 3.0 11/27/17 20:21 96.8 89 20 134/77 96 11/27/17 19:05 Nasal Cannula 3.0 32 11/27/17 19:05 82 18 98 Nasal Cannula 3.0 32 Intake and Output 11/27/17 11/28/17 19:00 07:00 Intake Total 480 ml 300 ml Output Total 1100 ml 450 ml Balance -620 ml -150 ml Intake Oral 480 ml IV Total 300 ml Output Urine Total 1100 ml 450 ml Current Medications Medications (Trade) Dose Ordered Sig/Meera Route PRN Reason Start Time Stop Time Status Last Admin Dose Admin Acetaminophen/ Hydrocodone Bitart ([place] 5/325) 1 tab QID ORAL 11/26/17 15:00 12/03/17 14:59 11/28/17 17:10 Albuterol Sulfate (Proventil) 2.5 mg QIDRT HHN 11/24/17 19:00 11/29/17 06:59 11/28/17 15:21 Carvedilol (Coreg) 12.5 mg EVERY 12 HOURS ORAL 11/27/17 21:00 12/27/17 20:59 11/27/17 20:57 Docusate Sodium (Colace) 100 mg THREE TIMES A DAY ORAL 11/25/17 09:00 12/24/17 17:59 11/25/17 18:03 Ergocalciferol (Drisdol) 50,000 intlu QWEEK ORAL 11/26/17 18:00 12/26/17 17:59 11/26/17 17:42 Furosemide (Lasix) 20 mg DAILY IV 11/26/17 09:00 12/26/17 08:59 11/28/17 08:57 Gabapentin (Neurontin) 100 mg THREE TIMES A DAY ORAL 11/28/17 18:00 12/28/17 17:59 Gabapentin (Neurontin) 300 mg BEDTIME ORAL 11/28/17 21:00 12/28/17 20:59 UNV Lansoprazole (Prevacid) 30 mg DAILY ORAL 11/26/17 15:00 12/26/17 14:59 11/28/17 08:57 Linezolid 300 ml @ 300 mls/hr Q12HR IVPB 11/26/17 21:00 12/03/17 20:59 11/28/17 08:56 Magnesium Oxide (Mag-Ox 400mg) 400 mg THREE TIMES A DAY ORAL 11/25/17 09:00 12/24/17 17:59 11/28/17 17:10 Ondansetron HCl (Zofran) 4 mg Q6H PRN IVP Nausea & Vomiting 11/24/17 19:00 12/24/17 18:59 Potassium Chloride (K-Dur) 20 meq DAILY ORAL 11/28/17 09:00 12/26/17 08:59 11/28/17 08:58 Height (Feet): 5 Height (Inches): 4.00 Weight (Pounds): 140 Objective no other change PAWAN AZAR Nov 28, 2017 17:30
[2017-11-28] MEDS: Hydromorphone 0.5mg/0.5ml inj IVP PRN (23:23)
[2017-11-29 03:40] VITALS: BP 121/56
[2017-11-29] MEDS: Hydromorphone 0.5mg/0.5ml inj IVP PRN (05:51)
--- NOTE | 2017-11-29 07:46 | Pulmonology Progress Note ---
Assessment/Plan Assessment/Plan ASSESSMENT Sepsis with bacteremia ( SCON)-likely contaminant UTI with VRE HCAP with RML infiltrate GI bleeding Anemia of chronic disease COPD HTN CAD functional quadriplegia PLAN OF CARE MS floor abx, ID follows Repeated blood cx prel negative , initial blood cx + SCON, likely contaminant afebrile, mild leukocytosis O2 titrate prn, HHN+ CPT Strict aspiration precautions Monitor HH, anemia w/up c/w anemia of chronic disease and low iron s/p IV iron x 1 monitor HH, transfuse if Hgb below 7 ECHO with pEF 60-65% and RVSP of 26 Gentle diuresis, monitor renal parameters, lytes, correct as needed bowel regimen GI prophylaxis PT/OT/ST DNR/DNI status dc today as per PMD case discussed and evaluated by supervising physician Subjective Allergies: Coded Allergies: No Known Allergies (Unverified , 02/17/16) Subjective mild leukocytosis, afebrile pulse ox stable on 3 L O2 via NC Objective Last 24 Hour Vital Signs Date Time Temp Pulse Resp B/P (MAP) Pulse Ox O2 Delivery O2 Flow Rate FiO2 11/29/17 06:21 96.7 11/29/17 03:40 96.7 72 20 121/56 98 11/29/17 00:10 98 Nasal Cannula 3.0 11/28/17 23:44 97.7 65 19 91/50 98 11/28/17 21:43 96.7 11/28/17 20:43 94 122/53 11/28/17 20:35 96.7 94 18 122/53 96 11/28/17 20:35 96 Nasal Cannula 3.0 11/28/17 19:57 91 18 99 Nasal Cannula 3.0 32 11/28/17 19:32 86 20 98 Nasal Cannula 3.0 32 11/28/17 16:00 97.4 91 21 123/71 96 11/28/17 15:20 87 18 99 Nasal Cannula 3.0 32 11/28/17 15:10 81 20 97 Nasal Cannula 3.0 32 11/28/17 11:50 97.7 83 20 120/78 97 11/28/17 11:05 91 18 99 Nasal Cannula 3.0 32 11/28/17 11:00 84 20 98 Nasal Cannula 3.0 32 11/28/17 08:58 79 115/71 11/28/17 08:16 97.5 79 20 115/71 98 Intake and Output 11/28/17 11/29/17 19:00 07:00 Intake Total 900 ml 300 ml Output Total 1800 ml 200 ml Balance -900 ml 100 ml Intake Oral 600 ml IV Total 300 ml 300 ml Output Urine Total 1800 ml 200 ml # Bowel Movements 3 General Appearance: no acute distress, other - elderly, bedridden female in NAD HEENT: normocephalic, atraumatic, anicteric Respiratory/Chest: normal breath sounds - with moderate air exchange Cardiovascular: normal rate, regular rhythm, no JVD Abdomen: soft, non tender - obese4 Neurologic/Psychiatric: abnormal gait - bedridden , alert, responsive Musculoskeletal: atrophy - BLE Laboratory Tests 11/29/17 04:50: White Blood Count [Pending], Red Blood Count [Pending], Hemoglobin [Pending], Hematocrit [Pending], Mean Corpuscular Volume [Pending], Mean Corpuscular Hemoglobin [Pending], Mean Corpuscular Hemoglobin Concent [Pending], Red Cell Distribution Width [Pending], Platelet Count [Pending], Mean Platelet Volume [ Pending], Neutrophils (%) (Auto) [Pending], Lymphocytes (%) (Auto) [Pending], Monocytes (%) (Auto) [Pending], Eosinophils (%) (Auto) [Pending], Basophils (%) (Auto) [Pending], Sodium Level [Pending], Potassium Level [Pending], Chloride Level [Pending], Carbon Dioxide Level [Pending], Blood Urea Nitrogen [Pending], Creatinine [Pending], Estimat Glomerular Filtration Rate [Pending], Glucose Level [Pending], Calcium Level [Pending], Phosphorus Level [Pending], Magnesium Level [Pending], Total Bilirubin [Pending], Aspartate Amino Transf (AST/SGOT) [ Pending], Alanine Aminotransferase (ALT/SGPT) [Pending], Alkaline Phosphatase [ Pending], C-Reactive Protein, Quantitative [Pending], Pro-B-Type Natriuretic Peptide [Pending], Total Protein [Pending], Albumin [Pending], Globulin [Pending ] Current Medications Medications (Trade) Dose Ordered Sig/Meera Route PRN Reason Start Time Stop Time Status Last Admin Dose Admin Acetaminophen/ Hydrocodone Bitart ([place] 5/325) 1 tab QID ORAL 11/26/17 15:00 12/03/17 14:59 11/28/17 20:44 Carvedilol (Coreg) 12.5 mg EVERY 12 HOURS ORAL 11/27/17 21:00 12/27/17 20:59 11/28/17 20:43 Clopidogrel Bisulfate (Plavix) 75 mg DAILY ORAL 11/29/17 09:00 12/29/17 08:59 Docusate Sodium (Colace) 100 mg THREE TIMES A DAY ORAL 11/25/17 09:00 12/24/17 17:59 11/25/17 18:03 Famotidine (Pepcid) 20 mg QPM ORAL 11/28/17 18:00 12/28/17 17:59 11/28/17 17:56 Furosemide (Lasix) 40 mg DAILY ORAL 11/29/17 09:00 12/29/17 08:59 Gabapentin (Neurontin) 100 mg THREE TIMES A DAY ORAL 11/28/17 18:00 12/28/17 17:59 11/28/17 17:54 Gabapentin (Neurontin) 300 mg BEDTIME ORAL 11/28/17 21:00 12/28/17 20:59 11/28/17 20:44 Hydromorphone HCl (Dilaudid) 0.5 mg Q6H PRN IVP Overnight Breakthrough Pain 11/28/17 19:00 12/05/17 18:59 11/29/17 05:51 Lansoprazole (Prevacid) 30 mg DAILY ORAL 11/26/17 15:00 12/26/17 14:59 11/28/17 08:57 Linezolid 300 ml @ 300 mls/hr Q12HR IVPB 11/26/17 21:00 12/03/17 20:59 11/28/17 20:43 Magnesium Oxide (Mag-Ox 400mg) 400 mg THREE TIMES A DAY ORAL 11/25/17 09:00 12/24/17 17:59 11/28/17 17:10 Ondansetron HCl (Zofran) 4 mg Q6H PRN IVP Nausea & Vomiting 11/24/17 19:00 12/24/17 18:59 Potassium Chloride (K-Dur) 20 meq DAILY ORAL 11/28/17 09:00 12/26/17 08:59 11/28/17 08:58 Vitamin D (Vitamin D) 2,000 intlu DAILY ORAL 11/29/17 09:00 12/29/17 08:59 Ethan (Shykeily)Kathleen NP Nov 29, 2017 07:46
[2017-11-29 07:54] LABS: EOSINOPHILS % (AUTO) 1.6 % (0.0-3.0); HEMATOCRIT 31.9 % (37.0-47.0); HEMOGLOBIN 10.3 G/DL (12.0-16.0); LYMPHOCYTES % (AUTO) 32.2 % (20.0-45.0); MEAN CORPUSCULAR VOLUME 93 FL (80-99); MONOCYTES % (AUTO) 8.2 % (1.0-10.0); PLATELET COUNT 279 K/UL (150-450); RED BLOOD COUNT 3.43 M/UL (4.20-5.40); RED CELL DISTRIBUTION WIDTH 14.5 % (11.6-14.8); WHITE BLOOD COUNT 11.9 K/UL (4.8-10.8)
[2017-11-29 08:00] VITALS: BP 107/62
[2017-11-29 08:21] LABS: ALANINE AMINOTRANSFERASE 12 U/L (12-78); ALBUMIN 2.5 G/DL (3.4-5.0); ALBUMIN/GLOBULIN RATIO 0.7 (1.0-2.7); ALKALINE PHOSPHATASE 54 U/L (46-116); ANION GAP 5 mmol/L (5-15); ASPARTATE AMINO TRANSFERASE 16 U/L (15-37); BILIRUBIN,TOTAL 0.2 MG/DL (0.2-1.0); BLOOD UREA NITROGEN 10 mg/dL (7-18); CALCIUM 8.8 MG/DL (8.5-10.1); CARBON DIOXIDE 32 MMOL/L (21-32); CHLORIDE 102 MMOL/L (98-107); CREATININE 0.7 MG/DL (0.55-1.30); PHOSPHORUS 3.9 MG/DL (2.5-4.9); POTASSIUM 4.3 MMOL/L (3.5-5.1); SODIUM 139 MMOL/L (136-145)
[2017-11-29] MEDS ORDERED: Furosemide 40mg tab ORAL SCH (09:00)
[2017-11-29] MEDS ORDERED: Vitamin D 1000 IU Tab ORAL SCH (09:00)
--- NOTE | 2017-11-29 09:18 | General Progress Note ---
Assessment/Plan Status: stable Status Narrative HCAP (healthcare-associated pneumonia) with RLL medial infltrates , possible aspiration, - Coag negative Staphylococcus bacteremia - UTI (urinary tract infection) - Sepsis - GI bleeding Hgb stablized - COPD (chronic obstructive pulmonary disease) - CHF - Chronic Pain - s/p Multiple Abdominal Surgeries / Diverticulosis - DNR DNI - DM Assessment/Plan add Neurontin Antibiotics- to Zyvox po Dc ECF HHN Lasix and KCl : PO 2D Echo Left ventricular ejection fraction estimated to be 60-65%. Oxygen low flow Subjective ROS Limited/Unobtainable: No Constitutional: Reports: other - slept better Allergies: Coded Allergies: No Known Allergies (Unverified , 02/17/16) Objective Last 24 Hour Vital Signs Date Time Temp Pulse Resp B/P (MAP) Pulse Ox O2 Delivery O2 Flow Rate FiO2 11/29/17 08:00 97.9 88 20 107/62 95 11/29/17 06:21 96.7 11/29/17 03:40 96.7 72 20 121/56 98 11/29/17 00:10 98 Nasal Cannula 3.0 11/28/17 23:44 97.7 65 19 91/50 98 11/28/17 21:43 96.7 11/28/17 20:43 94 122/53 11/28/17 20:35 96.7 94 18 122/53 96 11/28/17 20:35 96 Nasal Cannula 3.0 11/28/17 19:57 91 18 99 Nasal Cannula 3.0 32 11/28/17 19:32 86 20 98 Nasal Cannula 3.0 32 11/28/17 16:00 97.4 91 21 123/71 96 11/28/17 15:20 87 18 99 Nasal Cannula 3.0 32 11/28/17 15:10 81 20 97 Nasal Cannula 3.0 32 11/28/17 11:50 97.7 83 20 120/78 97 11/28/17 11:05 91 18 99 Nasal Cannula 3.0 32 11/28/17 11:00 84 20 98 Nasal Cannula 3.0 32 Intake and Output 11/28/17 11/29/17 19:00 07:00 Intake Total 900 ml 300 ml Output Total 1800 ml 200 ml Balance -900 ml 100 ml Intake Oral 600 ml IV Total 300 ml 300 ml Output Urine Total 1800 ml 200 ml # Bowel Movements 3 Current Medications Medications (Trade) Dose Ordered Sig/Meera Route PRN Reason Start Time Stop Time Status Last Admin Dose Admin Acetaminophen/ Hydrocodone Bitart ([place] 5/325) 1 tab QID ORAL 11/26/17 15:00 12/03/17 14:59 11/28/17 20:44 Carvedilol (Coreg) 12.5 mg EVERY 12 HOURS ORAL 11/27/17 21:00 12/27/17 20:59 11/28/17 20:43 Clopidogrel Bisulfate (Plavix) 75 mg DAILY ORAL 11/29/17 09:00 12/29/17 08:59 Docusate Sodium (Colace) 100 mg THREE TIMES A DAY ORAL 11/25/17 09:00 12/24/17 17:59 11/25/17 18:03 Famotidine (Pepcid) 20 mg QPM ORAL 11/28/17 18:00 12/28/17 17:59 11/28/17 17:56 Furosemide (Lasix) 40 mg DAILY ORAL 11/29/17 09:00 12/29/17 08:59 Gabapentin (Neurontin) 100 mg THREE TIMES A DAY ORAL 11/28/17 18:00 12/28/17 17:59 11/28/17 17:54 Gabapentin (Neurontin) 300 mg BEDTIME ORAL 11/28/17 21:00 12/28/17 20:59 11/28/17 20:44 Hydromorphone HCl (Dilaudid) 0.5 mg Q6H PRN IVP Overnight Breakthrough Pain 11/28/17 19:00 12/05/17 18:59 11/29/17 05:51 Lansoprazole (Prevacid) 30 mg DAILY ORAL 11/26/17 15:00 12/26/17 14:59 11/28/17 08:57 Linezolid 300 ml @ 300 mls/hr Q12HR IVPB 11/26/17 21:00 12/03/17 20:59 11/28/17 20:43 Linezolid (Zyvox) 600 mg EVERY 12 HOURS ORAL 11/29/17 21:00 12/04/17 20:59 UNV Magnesium Oxide (Mag-Ox 400mg) 400 mg THREE TIMES A DAY ORAL 11/25/17 09:00 12/24/17 17:59 11/28/17 17:10 Ondansetron HCl (Zofran) 4 mg Q6H PRN IVP Nausea & Vomiting 11/24/17 19:00 12/24/17 18:59 Potassium Chloride (K-Dur) 20 meq DAILY ORAL 11/28/17 09:00 12/26/17 08:59 11/28/17 08:58 Vitamin D (Vitamin D) 2,000 intlu DAILY ORAL 11/29/17 09:00 12/29/17 08:59 Laboratory Tests 11/29/17 04:50: White Blood Count 11.9H, Red Blood Count 3.43L, Hemoglobin 10.3L, Hematocrit 31.9L, Mean Corpuscular Volume 93, Mean Corpuscular Hemoglobin 29.9, Mean Corpuscular Hemoglobin Concent 32.1, Red Cell Distribution Width 14.5, Platelet Count 279, Mean Platelet Volume 4.7L, Neutrophils (%) (Auto) 57.0, Lymphocytes ( %) (Auto) 32.2, Monocytes (%) (Auto) 8.2, Eosinophils (%) (Auto) 1.6, Basophils (%) (Auto) 1.0, Sodium Level 139, Potassium Level 4.3, Chloride Level 102, Carbon Dioxide Level 32, Anion Gap 5, Blood Urea Nitrogen 10, Creatinine 0.7, Estimat Glomerular Filtration Rate , Glucose Level 99, Calcium Level 8.8, Phosphorus Level 3.9, Magnesium Level 1.7L, Total Bilirubin 0.2, Aspartate Amino Transf (AST/SGOT) 16, Alanine Aminotransferase (ALT/SGPT) 12, Alkaline Phosphatase 54, C-Reactive Protein, Quantitative 1.1H, Pro-B-Type Natriuretic Peptide 244H, Total Protein 6.0L, Albumin 2.5L, Globulin 3.5, Albumin/Globulin Ratio 0.7L Height (Feet): 5 Height (Inches): 4.00 Weight (Pounds): 140 General Appearance: no apparent distress Cardiovascular: normal rate Respiratory/Chest: decreased breath sounds Abdomen: distended Objective no other change PAWAN AZAR Nov 29, 2017 09:18
[2017-11-29] MEDS ORDERED: ZYVOX600 MG ORAL (09:23)
[2017-11-29] MEDS ORDERED: COLACE100 MG ORAL (09:23)
[2017-11-29] MEDS ORDERED: NEURONTIN300 MG ORAL (09:23)
[2017-11-29] MEDS ORDERED: COREG12.5 MG ORAL (09:23)
[2017-11-29] MEDS ORDERED: NORCO 5-325 TA1 EACH ORAL (09:23)
[2017-11-29] MEDS ORDERED: POTASSIUM CHLO20 ME1 ORAL (09:23)
[2017-11-29] MEDS ORDERED: GABAPENTIN100 MG ORAL (09:23)
--- NOTE | 2017-11-29 09:25 | Discharge Instructions ---
Discharge Instructions Discharge Instructions Follow up with: myself Diet: cardiac 2 GM Na, low fat Special Instructions routin skin care- O2 1.5-2 liters NOT MORE For Congestive Heart Failure Reminder Report to your physician any weight gain of 5 pounds or more in one week. PAWAN AZAR Nov 29, 2017 09:25
[2017-11-29] MEDS: Magnesium Oxide 400mg tab ORAL SCH (09:33)
[2017-11-29] MEDS: Norco 5mg/325mg tab ORAL SCH (09:33)
[2017-11-29] MEDS: Carvedilol 12.5mg tab ORAL SCH (09:34)
[2017-11-29] MEDS: Docusate 100mg cap ORAL SCH (09:34)
[2017-11-29 12:00] VITALS: BP 120/71
[2017-11-29] MEDS ORDERED: NS 500ML ONE (13:31)
[2017-11-29] MEDS ORDERED: Tubing IV Secondary IV ONE (13:31)
--- NOTE | 2017-12-02 09:54 | Discharge Summary ---
Discharge Summary Hospital Course Date of Admission Nov 24, 2017 at 00:25 Date of Discharge Nov 29, 2017 at 13:32 Admitting Diagnosis Upper gastrointestinal bleed HPI Jane Lundberg is a 87 year old female who was admitted on Nov 24, 2017 at 00: 25 for Upper Gastroinstestinal Bleed Hospital Course dc summary#[id number] Discharge Medications New Medications: Carvedilol (Coreg) 12.5 Mg Tablet 12.5 MG ORAL EVERY 12 HOURS for 30 Days, TAB Docusate Sodium* (Colace*) 100 Mg Capsule 100 MG ORAL THREE TIMES A DAY for 30 Days, CAP Gabapentin (Neurontin) 300 Mg Capsule 300 MG ORAL BEDTIME for 30 Days, CAP Gabapentin* (Gabapentin*) 100 Mg Capsule 100 MG ORAL BID for 30 Days, CAP Hydrocodone Bit/Acetaminophen 5-325* ([place] 5-325*) 1 Each Tablet 1 TAB ORAL QID for 30 Days, TAB Linezolid* (Zyvox*) 600 Mg Tablet 600 MG ORAL EVERY 12 HOURS for 10 Days, TAB Potassium Chloride* (K-Dur*) 20 Meq Tab.er.prt 20 MEQ ORAL DAILY for 30 Days, TAB Continued Medications: Acetaminophen* (Acetaminophen 325MG Tablet*) 325 Mg Tablet 650 MG ORAL Q4H PRN for T>100.5 for 30 Days, TAB Cholecalciferol (Vitamin D3)* (Vitamin D*) 1,000 Unit Tablet 1000 UNIT ORAL DAILY, #30 TAB Clopidogrel* (Clopidogrel*) 75 Mg Tablet 75 MG ORAL DAILY, TAB Famotidine (Famotidine) 20 Mg Tablet 20 MG ORAL TWICE A DAY Furosemide* (Lasix*) 40 Mg Tablet 40 MG ORAL DAILY, TAB Ipratropium/Albuterol Sulfate (DuoNeb 0.5-3(2.5)mg/3ml) 3 Ml Ampul.neb 3 ML HHN FOUR TIMES A DAY Magnesium Oxide (Magnesium Oxide) 400 Mg Tablet 400 MG ORAL THREE TIMES A DAY Discharge Condition Upon Discharge: stable Discharge Disposition Patient was discharged to SNF/Subacute Facility(03) Discharge Diagnoses: Discharge Instructions Discharge Instructions Follow up with: myself Special Instructions I have been assigned to complete a D/C Summary on this account. I was not involved in the patient management Kathleen Long NP (Vanchtein) Dec 02, 2017 09:54
--- NOTE | 2017-12-02 19:30 | Discharge Summary 2 SIG ---
DATE OF ADMISSION: 11/24/2017 DATE OF DISCHARGE: 11/29/2017 REASON FOR ADMISSION: 87-year-old female, resident of the halfway facility, was brought to emergency department for evaluation for vomiting of coffee-ground emesis. Past medical history was significant for history of GI bleeding, anemia, hypoxemic respiratory failure, chronic obstructive pulmonary disease, congestive heart failure, hypotension, chronic arthritis, diverticulosis, and history of pneumonia. The patient practically bed-bound with multiple chronic medical condition. Upon evaluation, the patient was tachycardic, hypoxic. WBC -12.6. Troponin negative. LFT, lipase within normal limits. Initially hemoglobin and hematocrit were stable. Potassium -3.2. Chest x-ray showed cardiomegaly and opacity in the left base with medial right lung hazy opacity, probably representing pneumonia. The patient was admitted for management of coffee ground emesis and pneumonia. HOSPITAL COURSE: The patient was admitted. Pulmonology and ID consults were requested. Supplemental oxygen provided as needed to keep saturation above 92%. Pulmonary toilet was provided. The patient was pancultured. Urine culture revealed evidence of enterococcal VRE. Follow up chest x-ray continued to show right lower lobe medial infiltrate, possible aspiration. Urine culture revealed vancomycin resistant enterococcus. The patient was on Zyvox. Blood culture revealed Staph coagulase-negative, 1 out of 2 bottles. Repeated blood culture were negative. 2D echo ruled out vegetation. The patient will need two weeks of antibiotic for treatment of bacteremia and urinary tract infection as per ID recommendation. Echocardiogram revealed preserved ejection fraction of 60% to 65%, right ventricular systolic pressure of 26. The patient was on gentle diuresis. Renal parameters and electrolytes were closely monitored and corrected as needed. Pro BNP from 1708 down to 244. Bowel regimen instituted. GI prophylaxis provided. The patient was working with physical and occupational therapists. Anemia workup was consistent with anemia of chronic disease and low iron. The patient received IV iron x1. Hemoglobin and hematocrit remained stable. No need for transfusion. Strict aspiration precautions were maintained. Gastrointestinal bleeding resolved. No further episodes of GI bleeding while in the hospital. The patient with history of multiple abdominal surgeries and diverticulosis. Oxygen was titrated to keep saturation above 92%. Pulmonary toilet provided. Lasix and potassium switched from the IV route to oral prior to discharge. Blood sugar was managed with the sliding scale of insulin. FINAL DIAGNOSES: 1. Sepsis with the Staphylococcus coagulase-negative bacteremia. 2. Healthcare associated pneumonia with the right lobe infiltrate. 3. Urinary tract infection with vancomycin-resistant enterococci. 4. Gastrointestinal bleeding. 5. Chronic obstructive pulmonary disease. 6. Congestive heart failure. 7. Diabetes mellitus. 8. Chronic pain. 9. Anemia of chronic disease. 10. Functional quadriplegia. DISCHARGE MEDICATIONS: See medication reconciliation list. DISCHARGE INSTRUCTIONS: The patient was discharged to halfway facility. FOLLOWUP: Follow up with medical doctor at the facility. Paresh Snow M.D. Kathleen MaldonadoNewyork-Presbyterian Brooklyn Methodist HospitalBurke N.PSrikanth DR: SADAF JOB#: [id number] CC: JARAD
== END 2017-11-29 13:32 | DRG 871 ==
LOC: EDBD 21:41 → EMR 22:00 → EDBEDREQSVC 23:55 → 2E 11-24 00:25 → EDBEDREQ 11-24 04:47 → ENRESERV 11-24 05:30 → ENRESERVTM 11-24 05:30 → ENRESERVDT 11-24 05:30 → 2E 11-24 17:35 → 4W 11-24 17:48
DX: A41.1 Sepsis due to other specified staphylococcus (principal); J18.9 Pneumonia, unspecified organism; J44.0 Chronic obstructive pulmonary disease with (acute) lower respiratory infection; K92.2 Gastrointestinal hemorrhage, unspecified; I11.0 Hypertensive heart disease with heart failure; R53.2 Functional quadriplegia; I50.9 Heart failure, unspecified; N39.0 Urinary tract infection, site not specified; E11.9 Type 2 diabetes mellitus without complications; I25.10 Atherosclerotic heart disease of native coronary artery without angina pectoris; Z66 Do not resuscitate; M19.90 Unspecified osteoarthritis, unspecified site; K21.9 Gastro-esophageal reflux disease without esophagitis; E78.5 Hyperlipidemia, unspecified; B95.2 Enterococcus as the cause of diseases classified elsewhere; D63.8 Anemia in other chronic diseases classified elsewhere; G89.29 Other chronic pain; K57.90 Diverticulosis of intestine, part unspecified, without perforation or abscess without bleeding; I51.7 Cardiomegaly; Y95 Nosocomial condition; Z16.21 Resistance to vancomycin; Z86.73 Personal history of transient ischemic attack (TIA), and cerebral infarction without residual deficits; Z74.01 Bed confinement status
CPT/HCPCS: 36415; 71045; 80053; 80061; 81003; 82533; 82550; 82553; 82607; 82728; 82746; 82977; 83036; 83540; 83550; 83605; 83690; 83735; 83880; 84100; 84443; 84484; 84550; 85025; 85610; 85730; 86140; 86710; 86850; 86900; 86901; 87040; 87081; 87086; 87181; 93005; 93306; 94640; 94664; 94760; 96361; 96365; 96375; 99284; 99285; J2405; J8499